=== PATIENT | female | born 2000 | race Caucasian/White ===

== ENCOUNTER 2025-07-06 10:29 | Emergency (ER) | payer OTHER, SELFPAY ==
--- OUTSIDE RECORDS SUMMARY | 2025-06-22 18:54 | XMS_ITS | Encounter Summary ---
Author Organization [facility] Address [facility] [place] [address] Care Team Providers Care Quality Assurance Supervisor Trim Name Role Phone Germaingeetha Aure Scott DO Unavailable [phone] William Lama MD Unavailable [phone] William Lama MD Unavailable [phone] Karen Sotomayor (Pt) PT Unavailable Unavailabl e Source Comments In the event this information is protected by the Federal Confidentiality of Alcohol and Drug AbusePatient Records regulations: The Federal rules restrict any use of the information to criminally investigate or prosecute any alcohol or drug abuse patient.[facility] Reason for Visit * ReasonCommentsChest Pain Encounter Details DateTypeDepartmentCare Team (Latest Contact Info)Kjqsriwblqy91/29/2025 7:54 PM EDT - 06/23/2025 4:31 AM EDTEN[facility] Department [address] [place] [address] Juliocesar Antunez DO [facility] [place] [address] Chest Pain Discharge Disposition: Home Social History Tobacco UseTypesPacks/DayYears UsedDateSmoking Tobacco: NeverSmokeless Tobacco: NeverAlcohol UseStandard Drinks/WeekCommentsNo0 (1 standard drink = 0.6 oz pure alcohol)PHQ-2AnswerDate RecordedPHQ-2 gypkk658UDIT-CAnswerDate Recorded Q1: How often do you have a drink containing alcohol?Never06/13/2025Q2: How many drinks containing alcohol do you have on a typical day when you are drinking? Patient does not drink06/13/2025Q3: How often do you have six or more drinks on one occasion?Never06/13/2025Hunger Vital SignAnswerDate RecordedWithin the past 12 months, you worried that your food would run out before you got the money to buymore.Never true06/08/2025Within the past 12 months, the food you bought just didn't last and you didn't have money to get more.Never true06/08/2025PRAPARE - TransportationAnswerDate RecordedIn the past 12 months, has lack of transportation kept you from medical appointments or from getting medications?No 06/08/2025In the past 12 months, has lack of transportation kept you from meetings, work, or from getting things needed for daily living?No06/08/2025 Housing Stability Vital SignAnswerDate RecordedIn the last 12 months, was there a time when you were not able to pay the mortgage or rent on time?No06/08/2025 Number of Times Moved in the Last YearNot on file06/08/2025t any time in the past 12 months, were you homeless or living in a fpc (including now)?No 06/08/2025HC UtilitiesAnswerDate RecordedIn the past 12 months has the electric, gas, oil, or water company threatened to shut off services in your home?No06/08/2025rea Deprivation IndexAnswerDate RecordedNational Score (1- 100), lower number is lower kdat836906/18/2024State Score (1-10), lower number is lower qjzg761ata from: https://www.neighborhoodatlas.medicine.[facility].edu/. Last address used for [address] [facility] [id number] and Gender InformationValueDate RecordedSex Assigned at BirthNot on fileLegal SexFemale 07/26/2012 9:51 AM ESTGender VjqrthjzEoswzn63/19/2021 9:24 PM EDTSexual MzsrnkljuafBjaizrau33/15/2024 10:47 AM ESTdocumented as of this encounter Last Filed Vital Signs Vital SignReadingTime TakenCommentsBlood Jqclljxr679/6106/23/2025 3:30 AM EDT Obubw108106/23/2025 3:30 AM NGWDgcztbmlikx02.9 ??C (98.4 ??F)06/22/2025 7:38 PM EDTRespiratory Ppko0722 3:06 AM EDTOxygen Xsimwstdgf35%06/23/2025 3:30 AM EDTInhaled Oxygen Concentration--Weight--Height--Body Mass Index--documented in this encounter Functional Status * Are you deaf or do you have serious difficulty hearing?AnswerDate of XfjkmdvqymPvuuftTc05/17/2025 1:59 PM Paramjit Lai RN * Are you blind or do you have serious difficulty seeing, even when wearing glasses?AnswerDate of SxcaszxadcMdchpkPj46/17/2025 1:59 PM Paramjit Lai RN * Do you have serious difficulty walking or climbing stairs?AnswerDate of NtmahtuysdOmxjgiMh25/17/2025 1:59 PM Paramjit Lai RN * Do you have difficulty dressing or bathing?AnswerDate of AssessmentAuthorNo 06/10/2025 1:59 PM Paramjit Lai RN * Because of a physical, mental, or emotional condition, do you have difficulty doing errands alone such as visiting a doctor's office or shopping?AnswerDate of QheczxfhhzGyrrygUc15/17/2025 1:59 PM Paramjit Lai RN documented as of this encounter Mental Status * Because of a physical, mental, or emotional condition, do you have serious difficulty concentrating, remembering, or making decisions?AnswerEntry Date JbcreyWg46/13/2025 1:33 PM Marylou Hart RN documented in this encounter Discharge Instructions * Attachments The following attachments cannot be sent through Care Everywhere. * Chest Pain of Unclear Etiology ([place]) documented in this encounter Medications at Time of Discharge MedicationSigDispense QuantityRefillsLast FilledStart DateEnd Date tiZANidine HCl (ZANAFLEX) 4 mg capsule Take 4 mg by mouth two times a day. polyethylene glycol 3350 17 gram packet Take 1 packet by mouth once daily as needed for constipation. Dissolve dose in 4 - 8 ounces of liquid and take as directed. 10 each 06/10/2025 ondansetron (ZOFRAN) 4 mg tablet Take 1 tablet by mouth every 6 hours as needed for nausea/vomiting. 6 tablet 06/10/2025 trimethoprim (PROLOPRIM) 100 mg tablet Indications:Recurrent urinary tract infectionTake 1 tablet by mouth once daily. 90 tablet 06/10/2025 tacrolimus (PROTOPIC) 0.1 % ointment Indications:Rash and nonspecific skin eruptionApply to affected area two times a day. 60 g losartan (COZAAR) 25 mg tablet Indications:Type 2 diabetes mellitus with hyperglycemia, without long-term current use of insulin ([facility]),MicroalbuminuriaTake 1 tablet by mouth once daily. 90 tablet glimepiride (AMARYL) 2 mg tablet Indications:Type 2 diabetes mellitus with hyperglycemia, without long-term current use of insulin (HCC)Take 1 tablet by mouth daily with breakfast. 90 tablet atorvastatin (LIPITOR) 20 mg tablet Indications:Type 2 diabetes mellitus with hyperglycemia, without long-term current use of insulin (HCC)Take 1 tablet by mouth daily at bedtime. 90 tablet hydrOXYzine HCl (ATARAX) 25 mg tablet Take 1 tablet by mouth every 12 hours as needed for itching/rash. 14 tablet 2025 lactobacillus rhamnosus (CULTURELLE) 10 billion cell capsule Take 1 capsule by mouth once daily.05/07/2025 blood sugar diagnostic (ACCU-CHEK GUIDE TEST STRIPS) test strip Indications:Type 2 diabetes mellitus with hyperglycemia, without long-term current use of insulin (HCC)Use with blood glucose test twice a day, different times E11.65 200 each Blood-Glucose Meter (ACCU-CHEK GUIDE ME GLUCOSE MTR) Indications:Type 2 diabetes mellitus with hyperglycemia, without long-term current use of insulin (HCC)Use as directed E11.65 1 each 04/27/2025 Lancets Indications:Type 2 diabetes mellitus with hyperglycemia, without long-term current use of insulin (HCC)Use with blood glucose test twice a day E11.65 100 each Surgical Lubricant Jelly gel For MRI Female Pelvis, MRI department to provide. Administer intra-vaginal Surgilube immediately prior the MRI procedure (total amount to patient toleranace). 5 g gabapentin (NEURONTIN) 800 mg tablet Take 800 mg by mouth three times a day as needed. levonorgestrel (LILETTA) 20.4 mcg/24 hr (8 yrs) 52 mg IUD 1 Intra Uterine Device by INTRAUTERINE route. lamoTRIgine (LAMICTAL) 25 mg tablet Take 75 mg by mouth once daily. EPINEPHrine (EPIPEN) 0.3 mg/0.3 mL auto-injector Inject 0.3 mg subcutaneously.12/21/2024 albuterol HFA (PROVENTIL HFA, VENTOLIN HFA) 90 mcg/actuation inhaler Inhale 2 puffs as instructed.12/23/2024 acetaminophen (TYLENOL) 500 mg tablet Take 1,000 mg by mouth.01/31/2022 hydrOXYchloroQUINE (PLAQUENIL) 200 mg tablet Take 2 tablets by mouth once daily. 180 tablet busPIRone (BUSPAR) 15 mg tablet Take 15 mg by mouth two times a day.11/12/2024 DULoxetine (CYMBALTA) 60 mg capsule Take 60 mg by mouth once daily. 11/23/2020 oxyCODONE-acetaminophen (PERCOCET) 5-325 mg tablet Indications:Fall, initial encounter,Acute bilateral low back pain without sciaticaTake 1 tablet by mouth every 8 hours as needed for pain for up to 3 days. 9 tablet ibuprofen (MOTRIN) 600 mg tablet Take 1 tablet by mouth every 6 hours as needed for pain for up to 7 days. 28 tablet lidocaine (SALONPAS) 4 % patch Apply 1 patch as directed once daily for 5 days. Remove patch after 12 hours 5 patch Blood-Glucose Sensor (FREESTYLE NIESHA 3 PLUS SENSOR) nickolas Indications:Type 2 diabetes mellitus with hyperglycemia, without long-term current use of insulin (HCC)Apply new sensor every fifteen (15) days to upper arm. E11.65 6 each tirzepatide (MOUNJARO) 5 mg/0.5 mL pen injector Indications:Type 2 diabetes mellitus with hyperglycemia, without long-term current use of insulin (HCC)Inject 5 mg subcutaneously one time a week. (This is AFTER the 4 weeks of 2.5 mg weekly) 2 mL documented as of this encounter ED Notes * Flores Serrano RN - 06/23/2025 4:31 AM EDT Reviewed all discharge instructions with patient including medications and the need for follow up. Pt verbalized understanding. * Juliocesar Antunez DO - 06/22/2025 9:35 PM EDT ED Provider Note Patient Name: Rebekah Thompson : 2000 SERVICE DATE: 06/22/25 History Patient presents with: Chest Pain 25-year-old female with a history of lupus, hypertension, diabetes, high cholesterol, chronic pain,chronic back pain and neurogenic bladder, bipolar disorder, ADHD, and PCOS presents to the emergency department for evaluation of chest pain. Patient reports that she had a mechanical fall downstairsyesterday. She was seen at [facility] and discharged home after negative imaging. Today she was reclining back into her recliner when she developed sudden onset substernal chest pain that radiates to the left side of her chest and into her back. Denies any subsequent injuries. PAST MEDICAL HISTORY Diagnosis Date Coitus painful for female Endometriosis Ovarian cyst Postcoital bleeding Systemic lupus erythematosus (HCC) PAST SURGICAL HISTORY Procedure Laterality Date ADDED SPINAL DISK SURGERY N/A x 4; 1 fusion and 3 discectomies FAMILY HISTORY Problem Relation Age of Onset No Ocular Disease Father Hypertension Mother No Ocular Disease Mother other (Liver cirrhosis) Mother other (Rheumatoid arthritis) Mother No Ocular Disease Sister No Ocular Disease Brother Hypertension Maternal Grandmother Cancer Maternal Grandmother non-Hodgkins lymphoma No Ocular Disease Maternal Grandmother Heart Maternal Grandfather Hypertension Maternal Grandfather Diabetes Maternal Grandfather Cancer Maternal Grandfather throat/esophageal cancer Cataract Maternal Grandfather Heart Paternal Grandmother Hypertension Paternal Grandmother Cancer Paternal Grandmother liver cancer No Ocular Disease Paternal Grandmother Heart Paternal Grandfather Hypertension Paternal Grandfather Diabetes Paternal Grandfather No Ocular Disease Paternal Grandfather Social History[1] ALLERGIES Allergen Reactions Fexofenadine Hives Fexofenadine Hcl Hives [place] Hives Morphine Hives, Itching Orphenadrine Anaphylaxis, Cough, Shortness of Breath, Swelling Added to allergy list after having a reaction when given on 12/20/24 Dexamethasone Rash Develops a rash and chest gets real tight Ciprofloxacin Anaphylaxis Hives In arm while infusion running, facial redness, throat sweling Semaglutide GI Upset Sulfasalazine Other: See Comments Weight loss, elevations of inflammatory markers Review of Systems Cardiovascular: Positive for chest pain. Allergic/Immunologic: Negative for immunocompromised state. All other systems reviewed and are negative. Physical Exam Vitals BP Pulse Temp Temp src Resp SpO2 Weight Height 06/22/25193706/22/25193706/22/25193706/22/25193706/22/25193706/22/251937 -- -- 137/76 (!) 93 36.8 ??C (98.3 ??F) Oral 18 96 % Physical Exam Vitals and nursing note reviewed. Constitutional: General: She is not in acute distress. Cardiovascular: Rate and Rhythm: Normal rate and regular rhythm. Heart sounds: Normal heart sounds. Pulmonary: Effort: Pulmonary effort is normal. Breath sounds: Normal breath sounds. Chest: Chest wall: Tenderness present. Neurological: Mental Status: She is alert. Psychiatric: Behavior: Behavior normal. Diagnostic Testing ED Labs Ordered and Reviewed COMPREHENSIVE METABOLIC PANEL - Abnormal; Notable for the following components: Result Value Ref Range Glucose 131 (*) 74 - 99 mg/dL CO2 20 (*) 22 - 30 mmol/L All other components within normal limits HIGH SENSITIVITY TROPONIN T (SECOND) - Abnormal; Notable for the following components: DORINA High Sensitivity 18 (*) <12 ng/L All other components within normal limits MAGNESIUM - Abnormal; Notable for the following components: Magnesium 1.6 (*) 1.7 - 2.3 mg/dL All other components within normal limits COMPLETE BLOOD COUNT - Normal HIGH SENSITIVITY TROPONIN T (INITIAL) - Normal HCG QUALITATIVE - Normal HIGH SENSITIVITY TROPONIN T (THIRD) 3 HRS AFTER INITIAL - Normal Results for orders placed or performed during the hospital encounter of 06/22/25 EKG Impression Sinus rhythm Borderline Q waves in inferior leads ST elev, probable normal early repol pattern unchanged from prior EKG April 07, 2025 Borderline ECG Confirmed by MD TRIMBLE BRYAN ([id number]) on 06/22/2025 7:57:56 PM Procedures ED Course / Clinical Impression Clinical Impressions as of 06/23/252139 Chest pain, unspecified type Acute bilateral thoracic back pain Fall down stairs, subsequent encounter Chronic pain syndrome Thyroid nodule MDM / Disposition / Plan 25-year-old female with a history of lupus, hypertension, diabetes, high cholesterol, chronic pain,chronic back pain and neurogenic bladder, bipolar disorder, ADHD, and PCOS presents to the emergency department for evaluation of chest pain. Patient is afebrile with normal vital signs. Uncomfortable due to pain. Has a known fall downstairs yesterday and was seen at [facility] and had negative CT ofthe head as well as negative x-rays of the ankle, hip, and low back however developed chest pain that radiated into the back today. Pain is very reproducible on palpation of the chest and back. Rib films and chest x-ray were ordered through the intake process initially which were negative. Given luis t she is having chest pain and does have risk factors a cardiac evaluation was pursued. Her ECG hasno acute cardiac abnormalities. Her initial troponin is negative. Repeat troponin is slightly elevated although thought to be secondary to hemolysis as there was difficulties obtaining the specimen. Her third troponin was negative again. Patient did require multiple doses of Toradol and fentanyl aswell as Tylenol and a lidocaine a patch for pain control. She was given IV magnesium for mild hypomagnesemia. She has no acute kidney injury. No leukocytosis or anemia. CT of the chest with IV contrast showed no acute pathology. Incidental finding of left thyroid nodule noted. On reevaluation patient was resting in bed but still was complaining of chest pain. Discussed test results and she was informed of her troponins. Discussed admitting per the ACS algorithm versus discharge. Via shared decision making the patient opted to be discharged home which I do feel is reasonable as her pain is very reproducible and she did have a known injury yesterday. Feel her solitary elevated troponin is more related to hemolysis or other factors and less likely associated with ACS. Patient did express understanding that the elevated troponin could potentially correlate with cardiac disease but was still comfortable going home. Referral was placed for follow-up with the actionable findings clinic for thyroid nodule. She has pain medicine at home including narcotic pain medication per review of [facility] and her medical records. Was discharged and instructed to return to the ED for any worsening symptoms or other concerns. History and Record Review External record(s) reviewed: PDMP reviewed. Differential Diagnoses - Chest pain - Thoracic back pain - Fall downstairs - Chronic pain - Thyroid nodule - Rib fracture is less likely for the following reason(s): no evidence on imaging - PE Less likely because: not tachycardic, not hypoxic and H&P not suggestive - ACS Less likely because: EKG without ischemia and history not suggestive of ischemic pain - Pneumothorax Less likely because: bilateral breath sounds and CXR without PTX - Pneumonia Less likely because: lungs clear to auscultation, CXR without infiltrate, no fever, no leukocytosisand H&P not suggestive - Aortic Dissection Less likely because: no history of HTN, no widened mediastinum on CXR and blood pressure appropriate in ED Additional complaint based differentials considered: pulmonary embolism, ACS, pneumonia, aortic dissection, pneumothorax Management I performed an independent interpretation of the following:imaging Imaging: My interpretation is No pneumothorax Radiology Reports CT CHEST W IVCON Final Result IMPRESSION: 1. No CT evidence of acute abnormality. 2. 1.1 cm left thyroid nodule. A follow-up thyroid ultrasound could be performed to further evaluate at clinical discretion. 3. Details above. Construction Director: JACINDA Transcribe Date/Time: Jun 23 2025 1:08A Dictated by : BERNICE MARTINEZ MD This examination was interpreted and the report reviewed and electronically signed by: BERNICE MARTINEZ MD on Jun 23 2025 1:17AM EST CT THORACIC SPINE W RECON DATA Final Result IMPRESSION: No acute fracture or malalignment of the thoracic spine. Please see dedicated CT chest for further evaluation of any associated relevant intrathoracic soft tissue findings. Construction Director: JACINDA Transcribe Date/Time: Jun 23 2025 1:05A Dictated by : BÁRBARA NORTON MD This examination was interpreted and the report reviewed and electronically signed by: BÁRBARA NORTON MD on Jun 23 2025 1:19AM EST XR RIBS/CHEST 3V AP RIB/OBLS/CXR LEFT Final Result IMPRESSION: No acute abnormality Construction Director: JACINDA Transcribe Date/Time: Jun 22 2025 8:59P Dictated by : BAUTISTA CHIN MD This examination was interpreted and the report reviewed and electronically signed by: BAUTISTA CHIN MD on Jun 22 2025 9:00PM EST Meds Given During Visit ED Medication Administration from 06/22/2025 1933 to 06/23/2025 0431 Date/Time Order Dose Route Action 06/22/20252218 EDT NaCl 0.9% 1,000 mL iv bolus 1,000 mL INTRAVENOUS New Bag/Syringe/Bottle 06/23/202541 EDT NaCl 0.9% 1,000 mL iv bolus 0 mL INTRAVENOUS Infusion Complete 06/22/20252218 EDT keTORolac 15 mg injection (Toradol) 15 mg INTRAVENOUS Given 06/22/20252219 EDT oxyCODONE-acetaminophen 5-325 mg 1 tablet (PERCOCET) 1 tablet ORAL Given 06/22/20252218 EDT lidocaine 4 % 1 patch (SALONPAS) 1 patch TRANSDERMAL Given 06/22/20252339 EDT fentaNYL 50 mcg/mL 50 mcg injection (SUBLIMAZE) 50 mcg INTRAVENOUS Given 06/22/20252339 EDT acetaminophen 650 mg tab(s) (TYLENOL) 650 mg ORAL Given 06/23/202541 EDT magnesium sulfate iv piggyback in sterile water 2 g 50 mL 2 g INTRAVENOUS New Bag/Syringe/Bottle 06/23/2025 0235 EDT magnesium sulfate iv piggyback in sterile water 2 g 50 mL 0 g INTRAVENOUS Infusion Complete 06/23/202541 EDT potassium chloride ER 20 mEq tab(s) (KLOR-CON) 20 mEq ORAL Given 06/23/2025126 EDT fentaNYL 50 mcg/mL 50 mcg injection (SUBLIMAZE) 50 mcg INTRAVENOUS Given 06/23/20256 EDT keTORolac 15 mg injection (Toradol) 15 mg INTRAVENOUS Given 06/23/2025126 EDT NaCl 0.9% 1,000 mL iv bolus 1,000 mL INTRAVENOUS New Bag/Syringe/Bottle 06/23/2025 0303 EDT NaCl 0.9% 1,000 mL iv bolus 0 mL INTRAVENOUS Infusion Complete 06/23/2025 0427 EDT fentaNYL 50 mcg/mL 50 mcg injection (SUBLIMAZE) 50 mcg INTRAVENOUS Given Additional Tests or Interventions Additional tests/procedures: IV fluids IV fluids were given for the following reasons replacement. Test(s) / intervention(s) considered but not performed: heparin and nitroglycerin Nitroglycerin considered but not performed for the following reason(s): presentation not consistentwith ACS Heparin considered but not performed for the following reason(s): presentation not consistent with ACS Contributing Factors Chronic conditions affecting care: diabetes and hypertension Re-evaluation Refer to [facility] Disposition The patient was discharged. Yes Escalation of care including transfer to ED considered. Reason(s) for deciding against admission/observation: ACS thought to be less likely, no pneumothorax, no evidence of aortic dissection, via shared decision making the patient preferred to be discharged home Counseled patient regarding lab results, radiology results and suspected diagnosis. Prescriptions and Discharge Orders Discharge Orders Hospital Follow Up Appointment - ACTIONABLE RESULTS Comments: thyroid nodule SIGNATURE: Sotero Kern PA-C Attending Note Attestation for: ELIAS/KAREN I have personally performed a face to face assessment of the patient and have reviewed the RUFINA note. I personally made/approved the management plan and take responsibility for the patient management.I performed a substantive portion of the visit including all aspects of the following. My hernandez findings include: Patient is a 25-year-old female presenting for chest discomfort. Patient reports that she fell the other day. States that her right leg gave out and she fell down several steps. Has a history of somemobility issues. Also has a history of some chronic pain disorder. Was evaluated at [facility]. CT head did not show any signs of any acute bleed. No signs of any fractures of her lower back or of the extremities that were hurting. Patient was started on oxycodone and was discharged home. Patient states that she woke up today feeling okay. States as the day progressed, she started having pain in the center of her chest. States the pain radiates into the left side of her ribs. States it is going into her left side of her back. States every time she moves or takes a deep breath that seems to makeit worse. States that she tried the pain medication and did not seem to make her feel any better. States the pain does seem to make it difficult to breathe. Has been nauseous still. States that her head still feels foggy from the injury but not worse today. States that she is not aware of injuring h er chest yesterday when she fell. Heart regular rate and rhythm. Lungs sound clear bilateral. There is no wheezing, rales, or rhonchi. No diminished breath sounds. Speaking full sentences without any difficulty. +2/4 radial pulses bilateral. Reproducible left-sided chest wall pain with palpation. No appreciated deformity. No crepitus on examination. Reproducible left-sided thoracic back pain with palpation. There is some minimal midline tenderness. No ecchymosis noted on examination. No signs of any deformities of the thoracic spine. Previous surgical work noted of her spine. Anxious on presentation. Symptoms seem to be consistent with a musculoskeletal injury. Likely strained her chest from the fall yesterday. Likely not feeling some of the discomfort secondary to the other injuries and now feeling it today. Chest x-ray showed no signs of any obvious rib fractures. CT of the chest showed no signs of any pneumothorax, pulmonary contusions, or rib fractures this evening. Continue to intermittently ask for narcotic pain medications but her pain seems to be well- controlled. Intermittently onrepeatexam talking with her partner in the room and no signs of any distress. Laughing, no signs of any distress. Pain seems to be under control this evening. At this time not meeting any criteria for admission for any trauma evaluation as there is no signs of any new fractures or other injuries this evening requiring admission. Incidentally did have some issues with her troponins this evening. First troponin was normal. Repeat troponin did elevate. Third troponin returned back to normal. Her delta troponin was less than 6 and technically have ruled her out. I suspect the bump in the troponin was from hemolysis. Was havinga difficult time getting some of her blood work this evening and some of her troponins did hemolyze. I suspect the 1 troponin that was elevated likely was from a hemolyzed sample. Still discussed theresults with the patient's. Offered her admission even though she was ruled out based off her deltatroponins. Made her aware that likely some of the change was from hemolysis but cannot be officially ruled out. Patient has declined and states that she wants to try to follow-up with her doctors outpatient. Again this seems reasonable as most likely her discomfort this evening is more likely musculoskeletal from her fall and injuries. Also again there is a reason for her troponins to be the way they were this evening. Patient strongly encouraged to follow-up with her doctor and be reevaluated.Patient informed if any of her symptoms change or worsen that she is always welcome to return. External record(s) reviewed: PDMP reviewed and prior outpatient record. Findings from review of outpatient records: 06/21/2025 [facility] I performed an independent interpretation of the following:telemetry and imaging Telemetry: My interpretation is Sinus rhythm on monitor Imaging: My interpretation is Preliminary read of her CT showed no signs of any pneumothorax Admission considered: Yes Escalation of care including admission/observation considered. Reason(s) for deciding against admission/observation: Considered admission for her troponins. Likely second troponin was elevated from hemolysis but still offered admission even though she was ruled out. Patient has declined and would like to follow-up with her providers outpatient. Re-Evaluation On reevaluation continued to state that she has chest discomfort and requesting for pain medications. Pain on exam seems to be under control. No signs of any acute distress. Signature: Juliocesar Antunez DO Date: 06/23/2025 Time: 9:40 PM SOTERO KERN 06/23/25 0629 [1] Social History Tobacco Use Smoking status: Never Smokeless tobacco: Never Vaping Use Vaping status: Never Used Substance and Sexual Activity Alcohol use: No Drug use: No Sexual activity: Not on file Comment: not asked JULIOCESAR ANTUNEZ 06/23/25 598 * Jim Carmichael MD - 06/22/2025 7:46 PM EDT ED INTAKE NOTE Patient Name: Rebekah Thompson Service Date: 06/22/25 BRIEF HPI: This is a 25 year old female who presents to the ED with: Slipped and fell on 7 steps yesterday. Seen at [facility] and had negative plain films (lumbar, right ankle, right hip) and CT brain, disposition home. Returns today with left rib and anterior chest pain, reproducible and tender to palpation. Did not have rib films/CXR yesterday. BRIEF EXAM: NAD INITIAL WORKUP AND DECISION MAKING: Orders Placed This Encounter XR RIBS/CHEST 3V AP RIB/OBLS/CXR LEFT ECG Complete Provider examination performed via virtual platform with assistance from bedside clinician. SIGNATURE: Jim Carmichael MD Further triage/room assignment per nursing Limited role in this case performing a screening of the patient in triage Further work up, treatment, follow up on testing ordered from triage, further testing, care, disposition, and final MDM per downstream emergency provider team Please see downstream ED providers's notation for full HnP and MDM * Zia Gomes RN - 06/22/2025 7:40 PM EDT Pt arrived to ED for c/o chest pain w/ Shortness of Breath x 1 day. Pt fell down stairs yesterday and was seen at [facility]. Pt endorses nausea, no vomiting. States that pain is mid sternal and radiates both right and left. documented in this encounter Miscellaneous Notes * [facility] - Scarlett López Tech - 06/22/2025 11:11 PM EDT Radiology Service Progress Note DATE OF SERVICE: June 22, 2025 TIME: 11:23 PM PATIENT IDENTITY VERIFICATION COMPLETED USING TWO (2) STANDARD IDENTIFIERS: Name and Date of confirmed by patient verbally and Name and Date of confirmed by identification band. FALL SCREENING: Has the patient had 2 falls in the last year or 1 fall with injury or currently using an Ambulatory Assistive Device (Walker, Cane, Wheelchair, Crutches, etc.)? Emergency Room Patient: Screened in ED PATIENT GENDER DATA: Assigned female at . status: : No status:NO. PATIENT RELEVANT IMPLANT DATA REVIEWED: Not Applicable PATIENT PRESENTS WITH AN IMPLANTABLE OR ATTACHED FARMER VEGETABLE: No ALLERGIES: Reviewed and unchanged CONTRAST ALLERGY: NO. EXAM: CT -CONTRAST INDUCED NEPHROPATHY RISK FACTORS: Not applicable CREATININE: Creatinine Date Value Ref Range Status 06/22/2025 0.67 0.58 - 0.96 mg/dL Final 06/09/2025 0.61 0.58 - 0.96 mg/dL Final 06/08/2025 0.69 0.58 - 0.96 mg/dL Final Estimated Glomerular Filtration Rate Date Value Ref Range Status 06/22/2025 124 >=60 mL/min/1.73m Final Comment: Estimated Glomerular Filtration Rate (eGFR) is calculated using the 2020 CKD-EPI creatinine equation. This equation utilizes serum creatinine, sex, and age as parameters. The creatinine assay has traceable calibration to isotope dilution- mass spectrometry. Refer to KDIGO guidelines for clinical interpretation. In patients with unstable renal function, e.g. those with acute kidney injury, the eGFRmay not accurately reflect actual GFR. eGFR- Date Value Ref Range Status 08/10/2021 >60 Final P.O.C.T. RESULTS: POC done: Yes, See Lab Tab June 22, 2025 TREATMENT: N/A PERIPHERAL IV DATA: Inpatient - refer to LDA documentation RADIOLOGY DEPARTMENT: CT; Exam(s) Completed: Chest and Spine . Anesthesia: No SIGNATURE: Alexa Hinton PATIENT NAME: Rebekah Thompson DATE: June 22, 2025 TIME: 11:23 PM * [facility] - Mike Ragsdale RT(R) - 06/22/2025 8:10 PM EDT Radiology Service Progress Note PATIENT NAME: Rebekah Thompson DATE OF SERVICE: June 22, 2025 TIME: 8:10 PM PATIENT IDENTITY VERIFICATION COMPLETED USING TWO (2) IDENTIFIERS: Name and Date of confirmedby patient verbally and Name and Date of confirmed by identification band. FALL SCREENING: Has the patient had 2 falls in the last year or 1 fall with injury or currently using an Ambulatory Assistive Device (Walker, Cane, Wheelchair, Crutches, etc.)? Emergency Room Patient: Screened in ED PATIENT GENDER DATA: Assigned female at . status: Unknown status: N/A PATIENT RELEVANT IMPLANT DATA REVIEWED: Not Applicable PATIENT PRESENTS WITH AN IMPLANTABLE OR ATTACHED FARMER VEGETABLE: No RADIOLOGY DEPARTMENT: General X-ray: Exam(s) Completed: Rib X-Ray: Left PERIPHERAL IV DATA: Not applicable SIGNED BY: RT Shefali(R) June 22, 2025 8:10 PM documented in this encounter Plan of Treatment DateTypeDepartmentCare Team (Latest Contact Info)Lnlpnldgsyo15/19/2025 11:00 AM ESTOffice Visit Rheumatology [address] [address] Mirta Lanza DO [address], [phone] [place] [address] 6m f/u sle07/18/2025 11:00 AM ESTInfusion Center Rheumatology [address] [address] Benlysta [M32.9] [employer] Medicare auth approved thru 08/24/25, Dr. Lanza, Q28D109/27/2024 1:00 PM [facility] Endocrinology [address] [place] [address] [facility]ep [facility] [address] [place] [address] 08/10/2025 9:15 AM ESTOffice Visit Family Medicine [facility] [address] [place] [address] [place] [address] [place] [address] EST care ER follow up jieflmcmvd93/22/2025 11:00 AM ESTInfusion Center Rheumatology [address] [address] [place] [M32.9] [employer] Medicare auth approved thru 08/24/25, Dr. Lanza, Q28D09/30/2025 10:00 AM ESTOffice Visit Endocrinology [address] [place] [address] Steve Cerna, BURRER OPERATOR.BUSHEL GIRL [address] [place] [address] 4 month follow up10/07/2025 7:45 AM ESTOffice Visit Urology [address] [place] [address] Mirta Harris MD [address] [place] [address] ER discharge due to UTI and Kidney Stone.06/15/2026 1:00 PM EDTOffice Visit OPHT Ophthalmology [address] [place] [address] Omero Brady, OD [address] [place] [address] Annual Plaquenil Eye Examdocumented as of this encounter Procedures Procedure NamePriorityDate/TimeAssociated DiagnosisCommentsHIGH SENSITIVITY TROPONIN T (THIRD) 3 HRS AFTER KRNPNJQFCGP04/30/2025 3:07 AM EDT HIGH SENSITIVITY TROPONIN T (SECOND)06/23/2025 12:48 AM EDT MAGNESIUM JNKALQN2606/22/2025 11:[address] THORACIC SPINE W RECON QBYEDRJK34/29/2025 11:[address] CHEST W CVMDRGZNM67/29/2025 11:29 PM EDT HCG QUAL YOMWRJB8306/22/2025 10:19 PM EDT HIGH SENSITIVITY TROPONIN T (INITIAL)06/22/2025 10:05 PM EDT COMPREHENSIVE METABOLIC KJLNJWYFZ50/29/2025 10:05 PM EDT COMPLETE BLOOD UBSPMBWAC35/29/2025 10:05 PM EDT XR RIBS/CHEST 3V AP RIB/OBLS/CXR RKIYXBMG53/29/2025 8:09 PM EDT FETWercutm84/29/2025 7:53 PM EDT ECG MHIHIITTAUDV47/29/2025 7:46 PM EDTdocumented in this encounter Results * HIGH SENSITIVITY TROPONIN T (THIRD) 3 HRS AFTER INITIAL (06/23/2025 3:07 AM EDT)ComponentValueRef RangeTest MethodAnalysis TimePerformed AtPathologist SignatureTNT High Sensitivity7<12 ng/L1 3:29 AM EDTLUTHERAN LABORATORYSpecimen (Source)Anatomical Location / LateralityCollection Method / VolumeCollection TimeReceived TimeBloodBLOOD SPECIMEN / UnknownVenipuncture / Mfqjrmo4806/23/2025 3:07 AM EDT1 3:09 AM EDT Narrative Authorizing ProviderResult TypeResult StatusSotero JONES-CLABORATORYFinal ResultPerforming OrganizationAddressty/State/ZIP CodePhone Number [email or web address] [address] [place] [address], * (ABNORMAL) HIGH SENSITIVITY TROPONIN T (SECOND) (06/23/2025 12:48 AM EDT) ComponentValueRef RangeTest MethodAnalysis TimePerformed AtPathologist SignatureTNT High Lnducxxykdl03(H)<12 ng/L1 1:12 AM EDTLUTHERAN LABORATORYSpecimen (Source)Anatomical Location / LateralityCollection Method / VolumeCollection TimeReceived TimeBloodBLOOD SPECIMEN / UnknownVenipuncture / Wiaovob0806/23/2025 12:48 AM EDT1 12:53 AM EDT Narrative Authorizing ProviderResult TypeResult StatusAnddrake Kern PA-CLABORATORYFinal ResultPerforming OrganizationAddressty/State/ZIP CodePhone [place] [address], * (ABNORMAL) MAGNESIUM (06/22/2025 11:36 PM EDT)ComponentValueRef RangeTest MethodAnalysis TimePerformed AtPathologist SignatureMagnesium1.6(L)1.7 - 2.3 mg/dL06/23/2025 12:10 AM EDTLUTHERAN LABORATORYSpecimen (Source)Anatomical Location / LateralityCollection Method / VolumeCollection TimeReceived Time BloodBLOOD SPECIMEN / UnknownVenipuncture / Whjbohd4606/22/2025 11:36 PM EDT 06/22/2025 11:38 PM EDT Narrative Authorizing ProviderResult TypeResult StatusNicwexner medical centerkinjal Antunez DOLABORATORYFinal ResultPerforming OrganizationAddressCity/State/ZIP CodePhone Number [facility] [address] [place] [address] * CT THORACIC SPINE W RECON DATA (06/22/2025 11:29 PM EDT)Anatomical Region LateralityModalityT-spineComputed TomographySpecimen (Source)Anatomical Location / LateralityCollection Method / VolumeCollection TimeReceived Time 06/22/2025 11:29 PM EDT Impressions 06/23/2025 1:21 AM EDT IMPRESSION: No acute fracture or malalignment of the thoracic spine. Please see dedicated CT chest for further evaluation of any associated relevant intrathoracic soft tissue findings. Construction Director: JACINDA ?? Transcribe Date/Time: Jun 23 2025 ??1:05A Dictated by : BÁRBARA NORTON MD This examination was interpreted and the report reviewed and electronically signed by: BÁRBARA NORTON MD on Jun 23 2025 ??1:19AM ??EST Narrative 06/23/2025 1:21 AM EDT * * *Final Report* * * DATE OF EXAM: Jun 22 2025 11:29PM ?? [facility] ?? 0485 ??- ??CT T-SPINE W RECON DATA -NB ??/ PROCEDURE REASON: Spine fracture, thoracic, traumatic ? * * * * Physician Interpretation * * * * EXAMINATION: ??CT T-SPINE W RECON DATA -NB CLINICAL HISTORY: ??Spine fracture, thoracic, traumatic - - Spine fracture, thoracic, traumatic - TECHNIQUE: CT thoracic spine without contrast. MQ: ??CTBCSWO_3 Dose-Length Product (DLP): 515 mGy*cm CT Dose Reduction Employed: Automated exposure control(AEC) and iterative recon COMPARISON: ??CT chest same time, MRI thoracic spine 06/04/2025 RESULT: Unchanged alignment to comparison with no new listhesis. ??Unchanged appearance of posterior spinal fusion at T7-8 with no new findings to suggest hardware fracture or new significant lucency surrounding screws to suggest hardware loosening. Unchanged appearance of the thoracic spine vertebral bodies with no findings to suggest acute fracture. Unchanged appearance of any age-related degenerative changes within limitations of no provided soft tissue reformats Procedure Note Provider, [facility] - 06/23/2025 * * *Final Report* * * DATE OF EXAM: Jun 22 2025 11:29PM [facility] 0485 - CT T-SPINE W RECON DATA -NB / PROCEDURE REASON: Spine fracture, thoracic, traumatic * * * * Physician Interpretation * * * * EXAMINATION: CT T-SPINE W RECON DATA -NB CLINICAL HISTORY: Spine fracture, thoracic, traumatic - - Spine fracture, thoracic, traumatic - TECHNIQUE: CT thoracic spine without contrast. MQ: CTBCSWO_3 Dose-Length Product (DLP): 515 mGy*cm CT Dose Reduction Employed: Automated exposure control(AEC) and iterative recon COMPARISON: CT chest same time, MRI thoracic spine 06/04/2025 RESULT: Unchanged alignment to comparison with no new listhesis. Unchanged appearance of posterior spinal fusion at T7-8 with no new findings to suggest hardware fracture or new significant lucency surrounding screws to suggest hardware loosening. Unchanged appearance of the thoracic spine vertebral bodies with no findings to suggest acute fracture. Unchanged appearance of any age-related degenerative changes within limitations of no provided soft tissue reformats IMPRESSION IMPRESSION: No acute fracture or malalignment of the thoracic spine. Please see dedicated CT chest for further evaluation of any associated relevant intrathoracic soft tissue findings. Construction Director: JACINDA Transcribe Date/Time: Jun 23 2025 1:05A Dictated by : BÁRBARA NORTON MD This examination was interpreted and the report reviewed and electronically signed by: BÁRBARA NORTON MD on Jun 23 2025 1:19AM EST Authorizing ProviderResult TypeResult StatusNicwexner medical centerkinjal Antunez DOCT-PAMAFinal Result * CT CHEST W IVCON (06/22/2025 11:29 PM EDT)Anatomical RegionLateralityModality ChestComputed TomographySpecimen (Source)Anatomical Location / Laterality Collection Method / VolumeCollection TimeReceived Time06/22/2025 11:29 PM EDT Impressions 06/23/2025 1:19 AM EDT IMPRESSION: 1. ??No CT evidence of acute abnormality. 2. ??1.1 cm left thyroid nodule. ??A follow-up thyroid ultrasound could be performed to further evaluate at clinical discretion. 3. ??Details above. Construction Director: PSCB ?? Transcribe Date/Time: Jun 23 2025 ??1:08A Dictated by : BERNICE MARTINEZ MD This examination was interpreted and the report reviewed and electronically signed by: BERNICE MARTINEZ MD on Jun 23 2025 ??1:17AM ??EST Narrative 06/23/2025 1:19 AM EDT * * *Final Report* * * DATE OF EXAM: Jun 22 2025 11:29PM ?? [facility] ?? 0539 ??- ??CT CHEST W IVCON ??/ PROCEDURE REASON: Chest trauma, blunt ? * * * * Physician Interpretation * * * * EXAMINATION: ??CHEST CT WITH CONTRAST CLINICAL HISTORY: PATIENT/TECHNOLOGIST PROVIDED HISTORY: ? Pt arrived to ED for c/o chest pain w/ Shortness of Breath x 1 day. Fall yesterday CLINICAL INFORMATION ( PROVIDED BY ORDERING CLINICIAN) : ??Chest trauma, blunt Technique: ??Spiral CT acquisition of the chest from the thoracic inlet to the upper abdomen following IV contrast. ??Coronal and sagittal reconstructed images generated. MQ: ??CTCW_6 Contrast: ??50 mL Omnipaque [address] Radiation dose: Integrated Dose-length product (DLP) for this visit = ?? 515 mGy*cm CT Dose Reduction Employed: Automated exposure control(AEC) and iterative recon Comparison: 05/01/2025. RESULT: Limitations: ??None. Lines, tubes, and devices: ??None. Lung parenchyma and airways: Stable band area of scarring and/or atelectasis medial right upper lobe. ??No focal consolidation. No suspicious pulmonary nodule identified. The central airways are patent. Pleural space: ??No pleural effusion. ??No pneumothorax. Lower neck, lymph nodes, and mediastinum: ??1.1 cm left thyroid nodule. No lymphadenopathy in the axillary, mediastinal, or hilar regions. Heart, pericardium, and thoracic vessels: ??The thoracic aorta and main pulmonary artery are normal in caliber. The cardiac chambers are normal in size. No coronary artery atherosclerotic calcifications are noted, although the study is not optimized for coronary assessment. No pericardial effusion or thickening. Bones: ??No acute fracture identified. ??Stable posterior fusion rods and pedicle screws at T7-T8. Upper abdomen: ??No acute abnormality identified in the imaged upper abdomen. Localizer images: No additional findings. Procedure Note Provider, [facility] - 06/23/2025 * * *Final Report* * * DATE OF EXAM: Jun 22 2025 11:29PM [facility] 0539 - CT CHEST W IVCON / PROCEDURE REASON: Chest trauma, blunt * * * * Physician Interpretation * * * * EXAMINATION: CHEST CT WITH CONTRAST CLINICAL HISTORY: PATIENT/TECHNOLOGIST PROVIDED HISTORY: Pt arrived to ED for c/o chest pain w/ Shortness of Breath x 1 day. Fall yesterday CLINICAL INFORMATION ( PROVIDED BY ORDERING CLINICIAN) : Chest trauma, blunt Technique: Spiral CT acquisition of the chest from the thoracic inlet to the upper abdomen following IV contrast. Coronal and sagittal reconstructed images generated. MQ: CTCW_6 Contrast: 50 mL Omnipaque [address] Radiation dose: Integrated Dose-length product (DLP) for this visit = 515 mGy*cm CT Dose Reduction Employed: Automated exposure control(AEC) and iterative recon Comparison: 05/01/2025. RESULT: Limitations: None. Lines, tubes, and devices: None. Lung parenchyma and airways: Stable band area of scarring and/or atelectasis medial right upper lobe. No focal consolidation. No suspicious pulmonary nodule identified. The central airways are patent. Pleural space: No pleural effusion. No pneumothorax. Lower neck, lymph nodes, and mediastinum: 1.1 cm left thyroid nodule. No lymphadenopathy in the axillary, mediastinal, or hilar regions. Heart, pericardium, and thoracic vessels: The thoracic aorta and main pulmonary artery are normal in caliber. The cardiac chambers are normal in size. No coronary artery atherosclerotic calcifications are noted, although the study is not optimized for coronary assessment. No pericardial effusion or thickening. Bones: No acute fracture identified. Stable posterior fusion rods and pedicle screws at T7-T8. Upper abdomen: No acute abnormality identified in the imaged upper abdomen. Localizer images: No additional findings. IMPRESSION IMPRESSION: 1. No CT evidence of acute abnormality. 2. 1.1 cm left thyroid nodule. A follow-up thyroid ultrasound could be performed to further evaluate at clinical discretion. 3. Details above. Construction Director: PSCB Transcribe Date/Time: Jun 23 2025 1:08A Dictated by : BERNICE MARTINEZ MD This examination was interpreted and the report reviewed and electronically signed by: BERNICE MARTINEZ MD on Jun 23 2025 1:17AM EST Authorizing ProviderResult TypeResult StatusSotero CARDENASCCT-PAMAFinal Result * HCG QUALITATIVE (06/22/2025 10:19 PM EDT)ComponentValueRef RangeTest Method Analysis TimePerformed AtPathologist SignatureHCG, Qualitative BloodNegative Isnvsitk10/29/2025 10:37 PM EDTLUTHERAN LABORATORYSpecimen (Source)Anatomical Location / LateralityCollection Method / VolumeCollection TimeReceived Time BloodBLOOD SPECIMEN / UnknownVenipuncture / Isgtvpj4806/22/2025 10:19 PM EDT 06/22/2025 10:24 PM EDT Narrative Authorizing ProviderResult TypeResult StatusJuliocesar Antunez DOLABORATORYFinal ResultPerforming OrganizationAddressCity/State/Z[place] [address], * HIGH SENSITIVITY TROPONIN T (INITIAL) (06/22/2025 10:05 PM EDT)ComponentValue Ref RangeTest MethodAnalysis TimePerformed AtPathologist SignatureTNT High Sensitivity6<12 ng/L1 10:29 PM EDTLUTHERAN LABORATORYSpecimen (Source)Anatomical Location / LateralityCollection Method / VolumeCollection TimeReceived TimeBloodBLOOD SPECIMEN / UnknownVenipuncture / Kasrkjq1106/22/2025 10:05 PM EDT1 10:07 PM EDT Narrative Authorizing ProviderResult TypeResult StatusSotero CARDENASCLABORATORYFinal ResultPerforming OrganizationAddressCity/State/ZIP CodePhone Number [facility]ARSANISM [facility] [address] [phone], * COMPLETE BLOOD COUNT (06/22/2025 10:05 PM EDT)ComponentValueRef RangeTest MethodAnalysis TimePerformed AtPathologist SignatureWBC9.913.70 - 11.00 k/uL 06/22/2025 10:10 PM EDTLUTHERAN LABORATORYRBC4.793.90 - 5.20 m/uL06/22/2025 10:10 PM EDTLUTHERAN GIKHKMYKPSNusshsgkam80.111.5 - 15.5 g/dL06/22/2025 10:10 PM EDTLUTHERAN KVOGRFBLLCUcduceqnxg59.236.0 - 46.0 %06/22/2025 10:10 PM EDT YARSANISM NJMFJYZNMSOTO94.080.0 - 100.0 fL06/22/2025 10:10 PM EDAD[facility] CENTERERAN AJBPGVPFJSTYY53.426.0 - 34.0 pg06/22/2025 10:10 PM EDTLUTHERAN LABORATORYMCHC 34.230.5 - 36.0 g/dL06/22/2025 10:10 PM EDTLUTHERAN LABORATORYRDW-CV12.511.5 - 15.0 %06/22/2025 10:10 PM EDTLUTHERAN LABORATORYPlatelet Daawg161481 - 400 k/uL06/22/2025 10:10 PM EDTLUTHERAN RIICGGRTUUVLQ42.59.0 - 12.7 fL06/22/2025 10:10 PM EDADENA [facility] CENTERERAN LABORATORYAbsolute nRBC<0.01<0.01 k/uL06/22/2025 10:10 PM EDTLUTHERAN LABORATORYSpecimen (Source)Anatomical Location / Laterality Collection Method / VolumeCollection TimeReceived TimeBloodBLOOD SPECIMEN / UnknownVenipuncture / Jxgffan4206/22/2025 10:05 PM EDT1 10:07 PM EDT Narrative Authorizing ProviderResult TypeResult StatusAnddrake JONES-CLABORATORYFinal ResultPerforming OrganizationAddressCity/State/ZIP CodePhone Number [facility] [address] [place] [address], [place] * (ABNORMAL) COMPREHENSIVE METABOLIC PANEL (06/22/2025 10:05 PM EDT)Component ValueRef RangeTest MethodAnalysis TimePerformed AtPathologist Signature Protein, Total7.36.3 - 8.0 g/dL06/22/2025 10:44 PM EDTLUTHERAN LABORATORY Albumin4.23.9 - 4.9 g/dL06/22/2025 10:44 PM EDTLUTHERAN LABORATORYCalcium, Total9.38.5 - 10.2 mg/dL06/22/2025 10:44 PM EDTLUTHERAN LABORATORYBilirubin, Total0.30.2 - 1.3 mg/dL06/22/2025 10:44 PM EDTLUTHERAN LABORATORYAlkaline Cclunzdtona9959 - 123 U/L1 10:44 PM EDTLUTHERAN LABORATORYAST 06/22/2025 10:44 PM EDTLUTHERAN LABORATORYComment:Unable to assay due to interference from hemolysis. Suggest reorder as clinically indicated.LXP550 - 38 U/L1 10:44 PM EDTLUTHERAN LHDOTXKQAKYbnvfgf943(H)74 - 99 mg/dL 06/22/2025 10:44 PM EDTLUTHERAN LABORATORYComment: The [place] [employer] (ADA) provides guidance for cutoff values for fasting glucose andrandom glucose. The ADA defines fasting as no caloric intake for at least 8 hours. Fasting plasma glucose results between 100 to 125 mg/dL indicate increased risk for diabetes (prediabetes). Fasting plasma glucose results greater than or equal to 126 mg/dL meet the criteria for diagnosis of diabetes. In the absence of unequivocal hyperglycemia, results should be confirmed by repeat testing. In a patient with classic symptoms of hyperglycemia or hyperglycemic crisis, random plasma glucose results greater than or equal to 200 mg/dL meet the criteria for diagnosis of diabetes. Reference: Standards of Medical Care in Diabetes 2016, [place] [employer]. Diabetes Care. 2016.39(Suppl 1). JMT057 - 21 mg/dL06/22/2025 10:44 PM EDTLUTHERAN LABORATORYCreatinine0.670.58 - 0.96 mg/dL06/22/2025 10:44 PM EDTLUTHERAN XCSXFQCWOUNfcdia751864 - 144 mmol/L 06/22/2025 10:44 PM EDTLUTHERAN LABORATORYPotassium3.73.7 - 5.1 mmol/L1 10:44 PM EDTLUTHERAN TVVNBRBSACSfhupzkr93532 - 107 mmol/L1 10:44 PM EDTLUTHERAN ZJPSFGAMVUIH638(L)22 - 30 mmol/L1 10:44 PM EDTLUTHERAN LABORATORYAnion Msc778 - 15 mmol/L1 10:44 PM EDTLUTHERAN LABORATORY Estimated Glomerular Filtration Qyqj035>=60 mL/min/1.73m 06/22/2025 10:44 PM EDTLUTHERAN LABORATORYComment:Estimated Glomerular Filtration Rate (eGFR) is calculated using the 2020 CKD-EPI creatinine equation. This equation utilizes serum creatinine, sex, and age as parameters. The creatinine assay has traceable calibration to isotope dilution-mass spectrometry. Refer to KDIGO guidelines for clinical interpretation. In patients with unstable renal function, e.g. those with acute kidney injury, the eGFRmay not accurately reflect actual GFR.Specimen (Source)Anatomical Location / LateralityCollection Method / VolumeCollection TimeReceived TimeBloodBLOOD SPECIMEN / UnknownVenipuncture / Biuyrsz9106/22/2025 10:05 PM EDT1 10:07 PM EDT Narrative Authorizing ProviderResult TypeResult StatusSotero JONES-CLABORATORYFinal ResultPerforming OrganizationAddressCity/State/ZIP CodePhone Number [facility] [address] [place] [address], * XR RIBS/CHEST 3V AP RIB/OBLS/CXR LEFT (06/22/2025 8:09 PM EDT)Anatomical RegionLateralityModalityRibRadiographic ImagingSpecimen (Source)Anatomical Location / LateralityCollection Method / VolumeCollection TimeReceived Time 06/22/2025 8:09 PM EDT Impressions 06/22/2025 9:02 PM EDT IMPRESSION: No acute abnormality Construction Director: JACINDA ?? Transcribe Date/Time: Jun 22 2025 ??8:59P Dictated by : BAUTISTA CHIN MD This examination was interpreted and the report reviewed and electronically signed by: BAUTISTA CHIN MD on Jun 22 2025 ??9:00PM ??EST Narrative 06/22/2025 9:02 PM EDT * * *Final Report* * * DATE OF EXAM: Jun 22 2025 ??8:09PM ?? LUX ?? [id number] ??- ??XR RIB/CHST 3V AP RIB/OBL/CHST L ??/ PROCEDURE REASON: Trauma ? * * * * Physician Interpretation * * * * PROCEDURE: ??Left RIBS with chest INDICATION: ??Trauma.trauma TECHNIQUE: ??XR RIB/CHST 3V AP RIB/OBL/CHST L COMPARISON: ??04/06/2025 FINDINGS: Stable cardiomediastinal silhouette. No consolidation, pleural effusion or pneumothorax. The left ribs are intact without acute fracture, sclerotic or lytic lesion. Stable hardware in the mid thoracic spine. Procedure Note Provider, [facility] - 06/22/2025 * * *Final Report* * * DATE OF EXAM: Jun 22 2025 8:09PM LUX 5243 - XR RIB/CHST 3V AP RIB/OBL/CHST L / PROCEDURE REASON: Trauma * * * * Physician Interpretation * * * * PROCEDURE: Left RIBS with chest INDICATION: Trauma.trauma TECHNIQUE: XR RIB/CHST 3V AP RIB/OBL/CHST L COMPARISON: 04/06/2025 FINDINGS: Stable cardiomediastinal silhouette. No consolidation, pleural effusion or pneumothorax. The left ribs are intact without acute fracture, sclerotic or lytic lesion. Stable hardware in the mid thoracic spine. IMPRESSION IMPRESSION: No acute abnormality Construction Director: PSCDhruv Transcribe Date/Time: Jun 22 2025 8:59P Dictated by : BAUTISTA CHIN MD This examination was interpreted and the report reviewed and electronically signed by: BAUTISTA CHIN MD on Jun 22 2025 9:00PM EST Authorizing ProviderResult TypeResult StatusMichael Edward Pepera MDRAD-PAMA Final Result * EKG (06/22/2025 7:53 PM EDT)ComponentValueRef RangeTest MethodAnalysis Time Performed AtPathologist SignatureVentricular Iyko66JHSTLRKJILZ CARDIOLOGY Atrial Dysm01GTHSIPKILKQ CARDIOLOGYP-R Jtamzfkz011jxQLXULFTH CARDIOLOGYQRS Yavscadi00knLHNHQLKO CARDIOLOGYQT Ycjwblsu680qqATLCFQBC CARDIOLOGYQTC Calculation (Ajit)410msLUTHERAN CARDIOLOGYCalculated P Axei47nqbevyfGKMBHSRU CARDIOLOGYCalculated R Nijw20iffqroqFUDENODW CARDIOLOGYCalculated T Axis51 degreesLUTHERAN CARDIOLOGYSpecimen (Source)Anatomical Location / Laterality Collection Method / VolumeCollection TimeReceived Time06/22/2025 7:53 PM EDT Impressions [facility] - 06/22/2025 7:58 PM EDT Sinus rhythm Borderline Q waves in inferior leads ST elev, probable normal early repol pattern unchanged from prior EKG April 07, 2025 Borderline ECG Confirmed by MD TRIMBLE BRYAN ([id number]) on 06/22/2025 7:57:56 PM Narrative [facility] - 06/22/2025 7:58 PM EDT NAME : REBEKAH THOMPSON PID : [id number] : 2000 Gender : Female Race : ORD : Procedure Date : Jun 22 2025 19:53:37 Edit Date : Jun 22 2025 19:58:00 Diagnosis: Sinus rhythm Borderline Q waves in inferior leads ST elev, probable normal early repol pattern unchanged from prior EKG April 07, 2025 Borderline ECG Confirmed by MD TRIMBLE BRYAN ([id number]) on 06/22/2025 7:57:56 PM Test Reason : Location : [address] : [facility] ??[id number] Overread By : MD TRIMBLE BRYAN Edited By : MD TRIMBLE BRYAN Referred By : , Acquired by : [id number], Authorizing ProviderResult TypeResult StatusCcf ProviderCARDIOLOGY_MEFinal ResultPerforming OrganizationAddressCity/State/ZIP CodePhone Number [facility] documented in this encounter Visit Diagnoses Diagnosis Chest pain, unspecified type- Primary Acute bilateral thoracic back pain Fall down stairs, subsequent encounter Chronic pain syndrome Thyroid nodule Nontoxic uninodular goiter documented in this encounter Administered Medications Medication OrderMAR ActionAction DateDoseRateSite acetaminophen 650 mg tab(s) (TYLENOL) 650 mg, ORAL, ONCE, 1 dose, On [place] 06/23/25 at 0000 Given06/22/2025 11:40 PM SGM342 mg fentaNYL 50 mcg/mL 50 mcg injection (SUBLIMAZE) 50 mcg, INTRAVENOUS, ONCE, 1 dose, On [place] 06/23/25 at 0000 Given06/22/2025 11:40 PM EDT50 mcg fentaNYL 50 mcg/mL 50 mcg injection (SUBLIMAZE) 50 mcg, INTRAVENOUS, ONCE, 1 dose, On [place] 06/23/25 at 0130 Given06/23/2025 1:27 AM EDT50 mcg fentaNYL 50 mcg/mL 50 mcg injection (SUBLIMAZE) 50 mcg, INTRAVENOUS, ONCE, 1 dose, On [place] 06/23/25 at 0430 Given06/23/2025 4:27 AM EDT50 mcg iv contrast (radiology procedure) INTRAVENOUS, DIRECTED NEEDED, Starting on Fri06/22/25 at 2148, Until Fri06/23/25 at 0631, Radiology Procedure, For CT CHEST W IVCON order No IV access, insert saline lock prior to the sedation, infusion, injection for imaging exam. Discontinue saline lock post exam. If Pt. has a central line or IVAD, may access for administration according to line specific nursing protocol. Once exam is co mplete flush line and de-access according to line specific nursing protocol in the CT contrast administration guidelines link. keTORolac 15 mg injection (Toradol) 15 mg, INTRAVENOUS, ONCE, 1 dose, On Fri06/22/25 at 2200, Ketorolac (Toradol) is indicated for theshort-term (up to 5 days) management of moderately severe acute pain. Continuation of ketorolac (Toradol) beyond 5 days increases the risk of developing serious adverse events. Please verify the duration of therapy for ketorolac (Toradol)., Pharmacist may modify dose per [facility] dose optimization consult agreement: Yes Given06/22/2025 10:19 PM EDT15 mg keTORolac 15 mg injection (Toradol) 15 mg, INTRAVENOUS, ONCE, 1 dose, On [place] 06/23/25 at 0130, Ketorolac (Toradol) is indicated for theshort-term (up to 5 days) management of moderately severe acute pain. Continuation of ketorolac (Toradol) beyond 5 days increases the risk of developing serious adverse events. Please verify the duration of therapy for ketorolac (Toradol)., Pharmacist may modify dose per [facility] dose optimization consult agreement: Yes Given06/23/2025 1:26 AM EDT15 mg lidocaine - VERIFY PATCH ONCE, THIS IS USED ONLY TO DOCUMENT THAT THE PATCH IS VERIFIED ON OR OFF PER ORDER. Use Patch On or Patch Off action. lidocaine 4 % 1 patch (SALONPAS) 1 patch, TRANSDERMAL, ONCE, 1 dose, On Fri06/22/25 at 2200, APPLY TO: CHEST - Remove patch after 12 hours. Given06/22/2025 10:19 PM EDT1 patchBack lidocaine patch - REMOVE ONCE, Remove patch for 12 hours per day. THIS IS USED ONLY TO DOCUMENT PATCH REMOVAL. Use Remvd Patch action. magnesium sulfate iv piggyback in sterile water 2 g 50 mL 2 g, INTRAVENOUS, at 25 mL/hr, Administer over 2 Hours, ONCE, 1 dose, On Fri06/23/25 at 0030, Magnesium sulfate iv bolus will be infused at a rate of 1 gram/hr The following nursing units may administer 2 g dose over 1 hour if necessary: ICUs/PACU/ED, Adult Hematology/Oncology, Labor and Delivery, Cardiac Stepdown, Headache Clinic If necessary, a magnesium sulfate bolus may be administeredgreater than 2 g/hr for the following indications: Adult and Pediatric Asthma Exacerbations, Torsade de Pointes, Pediatric BMT and Hematology/Oncology, Eclampsia or Preeclampsia New Bag/Syringe/Obqtju1606/23/2025 12:42 AM EDT2 g25 mL/hr NaCl 0.9% 1,000 mL iv bolus 1,000 mL, INTRAVENOUS, at 999 mL/hr, Administer over 1 Hours, ONCE, 1 dose, On Fri06/22/25 at 2200 New Bag/Syringe/Fqywvn9006/22/2025 10:19 PM EDT1,000 mL999 mL/hr NaCl 0.9% 1,000 mL iv bolus 1,000 mL, INTRAVENOUS, at 999 mL/hr, Administer over 1 Hours, ONCE, 1 dose, On Fri06/23/25 at 0130 New Bag/Syringe/Wccrkx8406/23/2025 1:27 AM EDT1,000 mL999 mL/hr NaCl 0.9% iv flush bag 20 mL, INTRAVENOUS, NEEDED, Starting on Fri06/23/25 at 0012, Until Fri06/23/25 at 0631, See admin instructions, If no compatible primary is already running, infuse NaCl 0.9% as primary to flush tubing after non-chemotherapy, non-immunotherapy intermittent infusions. Administer at the same rateas intermittent infusion. Select the Flush Bag file on smart pump. oxyCODONE-acetaminophen 5-325 mg 1 tablet (PERCOCET) 1 tablet, ORAL, ONCE, 1 dose, On Fri06/22/25 at 2200 Given06/22/2025 10:20 PM EDT1 tablet potassium chloride ER 20 mEq tab(s) (KLOR-CON) 20 mEq, ORAL, ONCE, 1 dose, On [place] 06/23/25 at 0030, Swallow whole; DO NOT crush or chew. If patient unable to swallow whole tablet; dissolve whole tablet (do not crush) in 120 mL of water prior to administration (may take up to 2 minutes to dissolve). Given06/23/2025 12:42 AM EDT20 mEqdocumented in this encounter Active and Recently Administered Medications Times are shown in EDT.Medication Order/51 acetaminophen 650 mg tab(s) (TYLENOL) (COMPLETED) 650 mg, ORAL, ONCE, 1 dose, On [place] 06/23/25 at 0000 * 2340 (Given - Provider: Flores Serrano RN) fentaNYL 50 mcg/mL 50 mcg injection (SUBLIMAZE) (COMPLETED) 50 mcg, INTRAVENOUS, ONCE, 1 dose, On [place] 06/23/25 at 0000 * 2340 (Given - Provider: Flores Serrano RN) fentaNYL 50 mcg/mL 50 mcg injection (SUBLIMAZE) (COMPLETED) 50 mcg, INTRAVENOUS, ONCE, 1 dose, On [place] 06/23/25 at 0130 * 0127 (Given - Provider: Arlen Weiss RN) fentaNYL 50 mcg/mL 50 mcg injection (SUBLIMAZE) (COMPLETED) 50 mcg, INTRAVENOUS, ONCE, 1 dose, On [place] 06/23/25 at 0430 * 0427 (Given - Provider: Flores Serrano RN) keTORolac 15 mg injection (Toradol) (COMPLETED) 15 mg, INTRAVENOUS, ONCE, 1 dose, On Fri06/22/25 at 2200, Ketorolac (Toradol) is indicated for theshort-term (up to 5 days) management of moderately severe acute pain. Continuation of ketorolac (Toradol) beyond 5 days increases the risk of developing serious adverse events. Please verify the duration of therapy for ketorolac (Toradol)., Pharmacist may modify dose per [facility] dose optimization consult agreement: Yes * 1823 (Given - Provider: Greg Klein RN) keTORolac 15 mg injection (Toradol) (COMPLETED) 15 mg, INTRAVENOUS, ONCE, 1 dose, On [place] 06/23/25 at 0130, Ketorolac (Toradol) is indicated for theshort-term (up to 5 days) management of moderately severe acute pain. Continuation of ketorolac (Toradol) beyond 5 days increases the risk of developing serious adverse events. Please verify the duration of therapy for ketorolac (Toradol)., Pharmacist may modify dose per [facility] dose optimization consult agreement: Yes * 0126 (Given - Provider: Arlen Weiss RN) lidocaine - VERIFY PATCH(Linked Group 1) ONCE, THIS IS USED ONLY TO DOCUMENT THAT THE PATCH IS VERIFIED ON OR OFF PER ORDER. Use Patch On or Patch Off action. lidocaine 4 % 1 patch (SALONPAS) (COMPLETED)(Linked Group 1) 1 patch, TRANSDERMAL, ONCE, 1 dose, On Fri06/22/25 at 2200, APPLY TO: CHEST - Remove patch after 12 hours. * 221 (Given - Provider: Greg Klein RN) lidocaine patch - REMOVE(Linked Group 1) ONCE, Remove patch for 12 hours per day. THIS IS USED ONLY TO DOCUMENT PATCH REMOVAL. Use Remvd Patch action. magnesium sulfate iv piggyback in sterile water 2 g 50 mL (COMPLETED) 2 g, INTRAVENOUS, at 25 mL/hr, Administer over 2 Hours, ONCE, 1 dose, On [place] 06/23/25 at 0030, Magnesium sulfate iv bolus will be infused at a rate of 1 gram/hr The following nursing units may administer 2 g dose over 1 hour if necessary: ICUs/PACU/ED, Adult Hematology/Oncology, Labor and Delivery, Cardiac Stepdown, Headache Clinic If necessary, a magnesium sulfate bolus may be administeredgreater than 2 g/hr for the following indications: Adult and Pediatric Asthma Exacerbations, Torsade de Pointes, Pediatric BMT and Hematology/Oncology, Eclampsia or Preeclampsia * 0042 (New Bag/Syringe/Bottle - Provider: Arlen Weiss RN) * 0235 (Infusion Complete - Provider: Arlen Weiss RN) NaCl 0.9% 1,000 mL iv bolus (COMPLETED) 1,000 mL, INTRAVENOUS, at 999 mL/hr, Administer over 1 Hours, ONCE, 1 dose, On Fri06/22/25 at 2200 * 2219 (New Bag/Syringe/Bottle - Provider: Greg Klein RN) * 0042 (Infusion Complete - Provider: Arlen Weiss RN) NaCl 0.9% 1,000 mL iv bolus (COMPLETED) 1,000 mL, INTRAVENOUS, at 999 mL/hr, Administer over 1 Hours, ONCE, 1 dose, On [place] 06/23/25 at 0130 * 0127 (New Bag/Syringe/Bottle - Provider: Arlen Weiss RN) * 0303 (Infusion Complete - Provider: Arlen Weiss RN) oxyCODONE-acetaminophen 5-325 mg 1 tablet (PERCOCET) (COMPLETED) 1 tablet, ORAL, ONCE, 1 dose, On Fri06/22/25 at 2200 * 2220 (Given - Provider: Greg Klein RN) potassium chloride ER 20 mEq tab(s) (KLOR-CON) (COMPLETED) 20 mEq, ORAL, ONCE, 1 dose, On [place] 06/23/25 at 0030, Swallow whole; DO NOT crush or chew. If patient unable to swallow whole tablet; dissolve whole tablet (do not crush) in 120 mL of water prior to administration (may take up to 2 minutes to dissolve). * 0042 (Given - Provider: Arlen Weiss RN) Medication Order06/21// iv contrast (radiology procedure)(Linked Group 2) INTRAVENOUS, DIRECTED NEEDED, Starting on Fri06/22/25 at 2148, Until [place] 06/23/25 at 0631, Radiology Procedure, For CT CHEST W IVCON order No IV access, insert saline lock prior to the sedation, infusion, injection for imaging exam. Discontinue saline lock post exam. If Pt. has a central line or IVAD, may access for administration according to line specific nursing protocol. Once exam is co mplete flush line and de-access according to line specific nursing protocol in the CT contrast administration guidelines link. NaCl 0.9% iv flush bag 20 mL, INTRAVENOUS, NEEDED, Starting on [place] 06/23/25 at 0012, Until [place] 06/23/25 at 0631, See admin instructions, If no compatible primary is already running, infuse NaCl 0.9% as primary to flush tubing after non-chemotherapy, non-immunotherapy intermittent infusions. Administer at the same rateas intermittent infusion. Select the Flush Bag file on smart pump. Order Group 1: lidocaine 4 % 1 patch (SALONPAS) (COMPLETED)Jump to med 1 patch, TRANSDERMAL, ONCE, 1 dose, On Fri06/22/25 at 2200, APPLY TO: CHEST - Remove patch after 12 hours. And lidocaine patch - REMOVEJump to med ONCE, Remove patch for 12 hours per day. THIS IS USED ONLY TO DOCUMENT PATCH REMOVAL. Use Remvd Patch action. And lidocaine - VERIFY PATCHJump to med ONCE, THIS IS USED ONLY TO DOCUMENT THAT THE PATCH IS VERIFIED ON OR OFF PER ORDER. Use Patch On or Patch Off action. Group 2: CT CHEST W IVCON (COMPLETED) STAT, ONCE, On Fri06/22/25 at 2149, For 1 occurrence, Reason for Exam: Chest trauma, blunt, Contrast and Creatinine: OK to scan without eGFR-For those without risk factors for CKD or TYRONE, ED Only: FLORENTIN-2 And iv contrast (radiology procedure)Jump to med INTRAVENOUS, DIRECTED NEEDED, Starting on Fri06/22/25 at 2148, Until [place] 06/23/25 at 0631, Radiology Procedure, For CT CHEST W IVCON order No IV access, insert saline lock prior to the sedation, infusion, injection for imaging exam. Discontinue saline lock post exam. If Pt. has a central line or IVAD, may access for administration according to line specific nursing protocol. Once exam is co mplete flush line and de-access according to line specific nursing protocol in the CT contrast administration guidelines link. documented in this encounter Care Teams Team MemberRelationshipSpecialtyStart DateEnd Date Aure Ulloa DO [address] [facility] [address] [place] [address] 06/08/15 William Lama MD [address] [place], [place] [id number] [facility]SD[facility]03/30/21 William Lama MD [address] [place], [place] [id number] ReferringSpine [facility]03/30/21 Karen Sotomayor (Pt), PT [address] [place], [place] [id number] Home Care ManagerPost Acute Care04/02/21documented as of this encounter
--- OUTSIDE RECORDS SUMMARY | 2025-06-29 11:40 | XMS_ITS | Encounter Summary ---
Author Organization [facility] Address [facility] [place] [address] Care Team Providers Care Roofing Subcontractor Name Role Phone Riana Ulloapriscilla Scott DO Unavailable [phone] William Lama MD Unavailable [phone] William Lama MD Unavailable [phone] Karen Sotomayor (Pt) PT Unavailable Unavailabl e Source Comments In the event this information is protected by the Federal Confidentiality of Alcohol and Drug AbusePatient Records regulations: The Federal rules restrict any use of the information to criminally investigate or prosecute any alcohol or drug abuse patient.[facility] Reason for Visit * ReasonCommentsSore ThroatSore throat and tongue, cough, nasal congestion, headache, body ache onset yesterday . - Entered bypatientIllnessPositive exposure to Covid. Encounter Details DateTypeDepartmentCare Team (Latest Contact Info)Jqdcsvypdix26/05/2025 11:40 AM ESTOffice Visit [facility] [address] [place] [address] Jason Alvarez PA-C [address] [place] [address] URI, acute (Primary Dx) Social History Tobacco UseTypesPacks/DayYears UsedDateSmoking Tobacco: NeverSmokeless Tobacco: NeverAlcohol UseStandard Drinks/WeekCommentsNo0 (1 standard drink = 0.6 oz pure alcohol)PHQ-2AnswerDate RecordedPHQ-2 xjckr223UDIT-CAnswerDate Recorded Q1: How often do you have [...] were you homeless or living in a senior living (including now)?No 06/08/2025HC UtilitiesAnswerDate RecordedIn the past 12 months has the electric, gas, oil, or water company threatened to shut off services in your home?No06/08/2025rea Deprivation IndexAnswerDate RecordedNational Score (1- 100), lower number is lower aqwa215606/18/2024State Score (1-10), lower number is lower iacm026ata from: https://www.neighborhoodatlas.[facility]/. Last address used [address]CommentsNoSex and Gender InformationValueDate RecordedSex Assigned at BirthNot on fileLegal SexFemale 07/26/2012 9:51 AM ESTGender SbeyyiszZeztbs92/19/2021 9:24 PM EDTSexual ArkvrpjncleSkrrhbtv49/15/2024 10:47 AM ESTdocumented as of this encounter Last Filed Vital Signs Vital SignReadingTime TakenCommentsBlood Keccybib447/6806/29/2025 12:44 PM EST Fscmc196306/29/2025 12:44 PM FANNkhkozhyarq05.6 ??C (97.9 ??F)06/29/2025 12:44 PM ESTRespiratory Rate--Oxygen Knjjvpvcdp38%06/29/2025 12:44 PM ESTInhaled Oxygen Concentration--Weight--Height--Body Mass Index--documented in this encounter Functional Status * Are you deaf or do you have serious difficulty hearing?AnswerDate of HhfugqvqfgYmfcssBy94/17/2025 1:59 PM Paramjit Lai RN * Are you blind or do you have serious difficulty seeing, even when wearing glasses?AnswerDate of UvbrrfblhwKqphaaNy26/17/2025 1:59 PM Paramjit Lai RN * Do you have serious difficulty walking or climbing stairs?AnswerDate of SlenssuyupTclyrvJt72/17/2025 1:59 PM Paramjit Lai RN * Do you have difficulty dressing or bathing?AnswerDate of AssessmentAuthorNo 06/10/2025 1:59 PM Paramjit Lai RN * Because of a physical, mental, or emotional condition, do you have difficulty doing errands alone such as visiting a doctor's office or shopping?AnswerDate of DlgghkolzeMbesjmUa53/17/2025 1:59 PM Paramjit Lai RN documented as of this encounter Mental Status * Because of a physical, mental, or emotional condition, do you have serious difficulty concentrating, remembering, or making decisions?AnswerEntry Date CiwcxuWh11/13/2025 1:33 PM Marylou Hart RN documented in this encounter Progress Notes * Jason Alvarez PA-C - 06/29/2025 1:27 PM EST [facility] Subjective Rebekah Thompson is a 25 year old female. Patient presents with: Sore Throat: Sore throat and tongue, cough, nasal congestion, headache, body ache onset yesterday .- Entered by patient Illness: Positive exposure to Covid. Sore Throat Illness Associated symptoms include sore throat. The patient is a 25-year-old female with a history of lupus, presenting with sneezing, congestion, headaches, and myalgias. Upper Respiratory Symptoms: - Sneezing, congestion, and headaches x several days. - Initially thought symptoms were due to seasonal allergies. - Congestion worsens at night; reports really bad headaches. - Intermittent cough. - Myalgias present. - Otalgia and sensation of ear fullness bilaterally. - Post-nasal drip noted. - Sinus tenderness bilaterally. - Taking Mucinex, which provides temporary relief and aids sleep. - Denies known HTN; reports occasional elevated blood pressure readings associated with lupus. - Feels sluggish. Allergies: - Allergic reactions include hives, rash, or anaphylaxis to fexofenadine, armida, morphine, orphenadrine, dexamethasone, ciprofloxacin, and sulfasalazine. - Intolerance to semaglutide, causing GI symptoms. Review of Systems HENT: Positive for sore throat. Constitutional: (+) fatigue Head: (+) headache Ears/Nose/Mouth/Throat: (+) sneezing, (+) nasal congestion, (+) postnasal drip, (+) sinus pain, (+)ear fullness Respiratory: (+) cough Musculoskeletal: (+) muscle aches Objective BP 105/68 (BP Site: Right Arm, BP Position: Sitting, BP Cuff Size: Large Adult) Pulse 99 Temp 36.6 ??C (97.9 ??F) (Oral) LMP 04/01/2025 SpO2 96% Physical Exam Vitals and nursing note reviewed. Constitutional: General: She is not in acute distress. Appearance: Normal appearance. She is not ill-appearing. HENT: Head: Normocephalic and atraumatic. Right Ear: Tympanic membrane and ear canal normal. Left Ear: Tympanic membrane and ear canal normal. Nose: Congestion and rhinorrhea present. Comments: Maxillary sinus tenderness on palpation bilaterally Mouth/Throat: Pharynx: Posterior oropharyngeal erythema present. No oropharyngeal exudate. Eyes: Conjunctiva/sclera: Conjunctivae normal. Cardiovascular: Rate and Rhythm: Normal rate and regular rhythm. Pulmonary: Effort: Pulmonary effort is normal. Breath sounds: Normal breath sounds. Musculoskeletal: General: No tenderness. Normal range of motion. Cervical back: Normal range of motion and neck supple. Lymphadenopathy: Cervical: No cervical adenopathy. Skin: General: Skin is warm and dry. Findings: No erythema. Neurological: Mental Status: She is alert and oriented to person, place, and time. ASSESSMENT/PLAN: 1. URI, acute (J06.9) - Acute viral URI with negative strep swab; COVID swab pending. - Start Bromfed (contains Sudafed) for decongestion. - May continue Mucinex if helpful. - Advised conservative therapy for the next few days. - Educated on expected viral course and to return if not improving by day 5-7, or if symptoms worsen (increased sinus/ear pain, chest involvement, or secondary worsening after initial improvement). - Provided school note for absence. Jason Alvarez PA-C Reviewed diagnosis and treatment options/plan with patient. The patient verbalized understanding and intent to comply with treatment. Follow-up instructions were given to the patient; they are to call their primary care provider if symptoms worsen or do not improve. Specific signs and symptoms that would indicate the need for higher level of care were discussed in detail warranting prompt ER evaluation. The patient denied further concerns/questions at the end of the visit. Medical Decision Making: Problems: Low: Acute, uncomplicated illness or injury Data: Unique test result(s) reviewed: 1 Unique test(s) ordered: 2 Risk: Low: Low risk from testing/treatment Moderate: Drug management Medical Decision Making Level: 4 - Moderate documented in this encounter Plan of Treatment DateTypeDepartmentCare Team (Latest Contact Info)Iwfqzhkcayf92/19/2025 11:00 AM ESTOffice Visit Rheumatology [address] [phone] Mirta Lanza DO [phone] [place] [address] 6m f/u sle07/18/2025 11:00 AM ESTInfusion Center Rheumatology [address] [address] [place] [M32.9] [employer] Medicare auth approved thru 08/24/25, Dr. Lanza, Q28D109/27/2024 1:00 PM [facility] Endocrinology [address] [place] [address] Gagandeep Craig, [facility] [address] [place] [address] T2DM08/10/2025 9:15 AM ESTOffice Visit [facility] [address] [place] [address] [place] [address] [place] [address] EST care ER follow up yjvctpnmtx17/22/2025 11:00 AM ESTInfusion Center Rheumatology [address] [address] [place] [M32.9] [employer] Medicare auth approved thru 08/24/25, Dr. Lanza, Q28D09/30/2025 10:00 AM ESTOffice Visit Endocrinology [address] [place] [address] Steve Cerna, [facility] [address] [place] [address] 4 month follow up10/07/2025 7:45 AM ESTOffice Visit Urology [address] [place] [address] Mirta Harris MD [address] [place], [place] [phone] ER discharge due to UTI and Kidney Stone.06/15/2026 1:00 PM EDTOffice Visit [facility] Ophthalmology [address] [place] [address] Omero Brady, OD [address] [place], [place] [id number] Annual Plaquenil Eye Examdocumented as of this encounter Procedures Procedure NamePriorityDate/TimeAssociated DiagnosisCommentsCOVID & INFLUENZA A/B & RSV PCR, EWCUFMFRzowgmx33/05/2025 1:01 PM EST URI, acute STREP A MOLECULAR (POC)Bsfewxj1606/29/2025 12:51 PM EST URI, acute documented in this encounter Results * COVID & INFLUENZA A/B & RSV PCR, ROUTINE (06/29/2025 1:01 PM EST)Component ValueRef RangeTest MethodAnalysis TimePerformed AtPathologist Signature SARS-CoV-2 (Agent of COVID-19) RNANot detectedSee comment [facility] 06/29/2025 8:25 PM ESTK[facility] LABInfluenza A RNANot detectedNot Detected [facility] 06/29/2025 8:25 PM [facility] LABInfluenza B RNANot detectedNot Detected [facility] 06/29/2025 8:25 PM [facility] LABRespiratory syncytial virus (RSV) RNANot detectedNot Detected [facility] 06/29/2025 8:25 PM [facility] LABSpecimen (Source)Anatomical Location / LateralityCollection Method / VolumeCollection TimeReceived TimeSwab NASOPHARYNGEAL SWAB / UnknownNon Blood / Coxwdgh0406/29/2025 1:01 PM EST06/29/2025 4:35 PM EST Narrative [facility] - 06/29/2025 8:25 PM EST Reference Range (the expected result in uninfected individuals): Not detected Authorizing ProviderResult TypeResult StatusJason PATELICROBIOLOGYFinal ResultPerforming OrganizationAddressCity/State/ZIP CodePhone Number [facility] [address] [place] [address], [place] * STREP A MOLECULAR (POC) (06/29/2025 12:51 PM EST)ComponentValueRef RangeTest MethodAnalysis TimePerformed AtPathologist SignatureStrep A (POCT)Negative NegativeKETTERING HEALTH TROY POINT OF CAREProcedural ControlValidKETTERING [facility]ALTH [facility] POINT OF CARESpecimen (Source)Anatomical Location / LateralityCollection Method / VolumeCollection TimeReceived TimeSwabOROPHARYNGEAL / Unknown 06/29/2025 12:51 PM EST Narrative Authorizing ProviderResult TypeResult StatusJason PATELICROBIOLOGYFinal ResultPerforming OrganizationAddressCity/State/ZIP CodePhone Number [facility] documented in this encounter Visit Diagnoses Diagnosis URI, acute- Primary Acute upper respiratory infections of unspecified site documented in this encounter Care Teams Team MemberRelationshipSpecialtyStart DateEnd Date Aure Ulloa DO [address] [facility] [address] [place] [address] 06/08/15 William Lama MD [address] [place] [address] [facility] Care ProviderSBlowing Rock Hospital03/30/21 William Lama MD [address] [place] [address] ReferringSpine [facility]03/30/21 Karen Sotomayor (Pt), PT [address] [place] [id number] Home Care ManagerPost Acute Care04/02/21documented as of this encounter
--- OUTSIDE RECORDS SUMMARY | 2025-07-05 09:40 | XMS_ITS | Encounter Summary ---
Author Organization [facility] Address [address] [place] [address] Care Team Providers Care Watch Engine Operator Name Role Phone Riana Ulloapriscilla Scott DO Unavailable [phone] William Lama MD Unavailable [phone] William Lama MD Unavailable [phone] Karen Sotomayor (Pt) PT Unavailable Unavailabl e Source Comments In the event this information is protected by the Federal Confidentiality of Alcohol and Drug AbusePatient Records regulations: The Federal rules restrict any use of the information to criminally investigate or prosecute any alcohol or drug abuse patient.[facility] Reason for Visit * ReasonCommentsDiabetes Encounter Details DateTypeDepartmentCare Team (Latest Contact Info)Nzbjhwscwkb51/11/2025 9:40 AM [facility] Endocrinology [address] [place] [address] Kasia Lam MD [address] [place] [address] Type 2 diabetes mellitus with hyperglycemia, without long-term current use of insulin (HCC) (Primary Dx); PCOS (polycystic ovarian syndrome) Social History Tobacco UseTypesPacks/DayYears UsedDateSmoking Tobacco: NeverSmokeless Tobacco: NeverAlcohol UseStandard Drinks/WeekCommentsNo0 (1 standard drink = 0.6 oz pure alcohol)PHQ-2AnswerDate RecordedPHQ-2 outpb936UDIT-CAnswerDate Recorded Q1: How often do you have [...] were you homeless or living in a long term (including now)?No 06/08/2025HC UtilitiesAnswerDate RecordedIn the past 12 months has the electric, gas, oil, or water company threatened to shut off services in your home?No06/08/2025rea Deprivation IndexAnswerDate RecordedNational Score (1- 100), lower number is lower xqhm302806/18/2024State Score (1-10), lower number is lower mbmr636ata from: https://www.neighborhoodatlas.medicine.[facility].edu/. Last address used for [address]CommentsNoSex and Gender InformationValueDate RecordedSex Assigned at BirthNot on fileLegal SexFemale 07/26/2012 9:51 AM ESTGender KoztuxsqLyngza83/19/2021 9:24 PM EDTSexual AuryyerhnksAsjquduj64/15/2024 10:47 AM ESTdocumented as of this encounter Functional Status * Are you deaf or do you have serious difficulty hearing?AnswerDate of YytblqlimcUvlpliSp39/17/2025 1:59 PM Paramjit Lai RN * Are you blind or do you have serious difficulty seeing, even when wearing glasses?AnswerDate of YkmcnocbgdBjimqeVw33/17/2025 1:59 PM Paramjit Lai RN * Do you have serious difficulty walking or climbing stairs?AnswerDate of XrcucrheyhAgtnkyRh26/17/2025 1:59 PM Paramjit Lai RN * Do you have difficulty dressing or bathing?AnswerDate of AssessmentAuthorNo 06/10/2025 1:59 PM Paramjit Lai RN * Because of a physical, mental, or emotional condition, do you have difficulty doing errands alone such as visiting a doctor's office or shopping?AnswerDate of JgkjocgjweIsfomrWn45/17/2025 1:59 PM Paramjit Lai RN documented as of this encounter Mental Status * Because of a physical, mental, or emotional condition, do you have serious difficulty concentrating, remembering, or making decisions?AnswerEntry Date EwnpmcBl45/13/2025 1:33 PM Marylou Hart RN documented in this encounter Progress Notes * Kasia Lam MD - 07/05/2025 9:41 AM EST Images from the original note were not included. VIRTUAL VISIT This is a virtual visit using [employer] (HIPAA-compliant) It required patient-provider interaction for the medical decision making as documented below. I have communicated my name and active licensure. The patient???s identity and physical location were verified at the time of this visit. Either the patient or their legal employee's representative has been informed of the risks and benefits of -- and alternatives to -- treatment through a remote evaluation and consents to proceed with the evaluation remotely. HISTORY Ms Rebekah Thompson is a 25 year old female who comes in here for Type 2 diabetes PCOS REVIEW First met me 04/2025 Previous diabetes provider: PCP then local endo Approximate age at diagnosis of diabetes: 20 y/o ( 1 year after lupus diagnosis) Circumstances surrounding the diagnosis: SLE, steroid Complications/comorbidities: Neuropathy - may be related to back injury A1c as high as 12% As low as 6.9% IMAGING: CT abd pelvis 11/2024 Excerpts: LIVER: Diffuse low attenuation consistent with fatty infiltration, similar. No acute process. GALLBLADDER/BILE DUCTS: Unremarkable. No opaque gallstones PANCREAS: Unremarkable. No mass or duct dilation SPLEEN: Unremarkable ADRENALS: Unremarkable INTERVAL HISTORY History of diabetes and related medications/devices: metformin by PCP 500 mg - fine for a while Endocrionlogist - Ozempic, weight GI issues on metformin and Ozempic together - vomiting, diarrhea Ozempic stopped Metformin alone- continued GI issues Saw manager semiconductor Metformin ER up to 1000 mg twice a day - still GI issues Current diabetes and related medications/devices: Mounjaro 5 mg weekly - some constipation, trying to hydrate Glimepiride 2 mg FSL3 plus - our sample Cymbalta for neuropathy and bipolar 2 Gabapentin for neuropathy Prednisone for SLE - joint pain,chest pain, last one 02/2025 On IUD Steroid intake including injections: Used to get for steroid injections for back pain injury Went to ED for fall down the stairs, kidney infection, chest pain Just starting exercise Several UTIs - sees uroGyn here Cysts in one ovary per patient Periods every 1.5 months On IUD has stopped periods Facial hair, body hair Was 250 lb maybe October 2024 Weight 228-232 lb No scale at home Losing inches CGM download - see procedure note CGM interpretation: TIR is at goal Good variability Few spikes Recommendation: see Assessment/Plan below PMHx/PSHx: See DM complications/comorbidities above Bipolar 2 SLE Soc Hx: Stays w dad, mom passed Fam Hx: pat GF - type 1 DM Mat GF- type 2 DM REVIEW OF SYSTEMS As above PHYSICAL EXAMINATION by video GENERAL: not in distress, well-appearing HEENT: anicteric sclerae, non-injected conjunctivae NECK: able to move easily, no obvious goiter NEUROLOGIC: alert, oriented LABS REVIEWED: Recent Labs 01/10/25 1017 04/06/25 2229 04/08/25 1452 04/27/25 1341 04/28/25 1132 04/28/25 1135 05/01/25 1800 05/01/25 1840 05/02/25 0804 05/06/25 0523 05/07/25 0550 05/20/25 1853 06/04/25 1915 06/06/25 1540 06/08/25 1332 06/09/25 1604 06/22/25 2205 ALT -- < > -- -- -- -- -- 30 -- -- -- 33 -- 29 -- -- 32 AST -- < > -- -- -- -- -- 22 -- -- -- 26 -- 16 -- -- -- UCRR 109.1 -- 128.9 -- -- 65.6 -- -- -- -- -- -- -- -- -- -- -- UALBR -- -- -- -- -- 77.2 -- -- -- -- -- -- -- -- -- -- -- UALBCR -- -- -- -- -- 118* -- -- -- -- -- -- -- -- -- -- -- TSH -- -- -- -- 1.880 -- -- -- -- -- -- -- -- -- -- -- -- CPEPT -- -- -- -- 6.0* -- -- -- -- -- -- -- -- -- -- -- -- TPROT -- < > -- -- -- -- < > 6.6 -- -- -- 7.5 -- 6.8 -- -- 7.3 ALB -- < > -- -- -- -- < > 4.1 -- -- -- 4.5 -- 4.1 -- -- 4.2 CA -- < > -- -- -- -- < > -- < > 9.6 < > 9.7 < > 9.1 9.4 9.4 9.3 TBILI -- < > -- -- -- -- < > 0.3 -- -- -- 0.2 -- 0.2 -- -- 0.3 ALKPHOS -- < > -- -- -- -- -- 84 -- -- -- 107 -- 82 -- -- 73 GLUC -- < > -- -- -- -- < > -- < > 161* < > 194* < > 254* 139* 187* 131* BUN -- < > -- -- -- -- < > -- < > 13 < > 16 < > 16 18 15 17 CREAT -- < > -- -- -- -- < > -- < > 1.21* < > 0.81 < > 0.57* 0.69 0.61 0.67 NA -- < > -- -- -- -- < > -- < > 138 < > 139 < > 137 138 134* 137 K -- < > -- -- -- -- -- 3.8 < > 3.8 < > 3.8 < > 4.3 3.7 5.0 3.7 CHLOR -- < > -- -- -- -- < > -- < > 99 < > 105 < > 102 101 100 105 CO2 -- < > -- -- -- -- < > -- < > 23 < > 18* < > 23 24 21* 20* ANION -- < > -- -- -- -- < > -- < > 16* < > 16* < > 12 13 13 12 EGFROTH -- < > -- -- -- -- < > -- < > 64 < > 103 < > 129 123 127 124 GLUCFAST -- -- -- -- 290* -- -- -- -- -- -- -- -- -- -- -- -- HBA1C -- -- -- 10.4* -- -- -- -- -- 9.1* -- -- -- -- -- -- -- < > = values in this interval not displayed. Recent Labs 04/27/25 1341 04/28/25 1132 05/06/25 0523 TG -- 395* -- CHOL -- 302* -- HDL -- 34* -- VLDL -- 84* -- LDL -- 188* -- FASTTIME -- 12 -- TCHDL -- 8.88* -- LDLHDL -- 5.53* -- NONHDL -- 268* -- HBA1C 10.4* -- 9.1* HBA0 -- -- 214 Latest Ref Rng 04/28/2025 05/01/2025 Protein, Total 6.3 - 8.0 g/dL 7.7 Albumin 3.9 - 4.9 g/dL 4.3 Calcium 8.5 - 10.2 mg/dL 9.9 Bilirubin, Total 0.2 - 1.3 mg/dL 0.4 Glucose 74 - 99 mg/dL 171 (H) BUN 7 - 21 mg/dL 13 Creatinine 0.58 - 0.96 mg/dL 0.56 (L) Sodium 136 - 144 mmol/L 135 (L) Chloride 98 - 107 mmol/L 100 CO2 22 - 30 mmol/L 21 (L) Anion Gap 8 - 15 mmol/L 14 eGFR >=60 mL/min/1.73m 130 Cholesterol, Total <200 mg/dL 302 (H) Triglyceride <150 mg/dL 395 (H) HDL Cholesterol >39 mg/dL 34 (L) LDL Cholesterol, Calculated <100 mg/dL 188 (H) Non HDL Cholesterol <130 mg/dL 268 (H) VLDL Cholesterol <30 mg/dL 84 (H) TC:HDL Ratio <5.10 8.88 (H) LDL:HDL Ratio <2.54 5.53 (H) Fasting Time hrs 12 Creatinine, Ur Random (UCRR) 20.0 - 300.0 mg/dL 65.6 Albumin, Urine Random mg/L 77.2 Albumin/Creat Ratio <30 mg/g 118 (H) Glutamic Acid Decarboxylas Ab Qualitative Negative Negative Glutamic Acid Decarboxylase Ab <=5.0 IU/mL <5.0 Insulin Antibody, Qual Negative Negative Insulin Antibody <0.4 U/mL <0.4 C-Peptide 1.1 - 4.4 ng/mL 6.0 (H) Glucose, Fasting 74 - 99 mg/dL 290 (H) TSH 0.270 - 4.200 mIU/L 1.880 Islet Cell Ab <1:4 <1:4 Zinc Transporter 8 Antibody 0.0 - 15.0 U/mL <10.0 Insulinoma Assoc Ab 2, Blood <7.5 U/mL <5.4 DHEA-S 98.8 - 340.0 ug/dL 214.7 Testosterone, Total by MS 8.0 - 60.0 ng/dL 21.4 Androstenedione <1.6 ng/mL 1.0 Hydroxyprogesterone <=206.00 ng/dL 17.50 Legend: (H) High (L) Low IMAGIN05/2025 CT flank - ED visit Abdomen and Pelvis: Liver: Unremarkable. Biliary: The gallbladder is unremarkable. Spleen: No splenomegaly. Pancreas: Unremarkable. Adrenals: Normal. PAST MEDICAL HISTORY Diagnosis Date Coitus painful for female Endometriosis Ovarian cyst Postcoital bleeding Systemic lupus erythematosus (HCC) PAST SURGICAL HISTORY Procedure Laterality Date ADDED SPINAL DISK SURGERY N/A x 4; 1 fusion and 3 discectomies Social History Tobacco Use Smoking status: Never Smokeless tobacco: Never Vaping Use Vaping status: Never Used Substance Use Topics Alcohol use: No Drug use: No FAMILY HISTORY Problem Relation Age of Onset [...] Paternal Grandfather No Ocular Disease Paternal Grandfather Current Outpatient Medications Medication Sig Vmvlyzleuccehyl-Qrwiwuzbg-OW (BROMFED DM) 2-30-10 mg/5 mL syrup Take 10 mL by mouth three times a day as needed. tiZANidine HCl (ZANAFLEX) 4 mg capsule Take 4 mg by mouth two times a day. polyethylene glycol 3350 17 gram packet Take 1 packet by mouth once daily as needed for constipation. Dissolve dose in 4 - 8 ounces of liquid and take as directed. (Patient not taking: Reported on 06/29/2025) ondansetron (ZOFRAN) 4 mg tablet Take 1 tablet by mouth every 6 hours as needed for nausea/vomiting. trimethoprim (PROLOPRIM) 100 mg tablet Take 1 tablet by mouth once daily. tacrolimus (PROTOPIC) 0.1 % ointment Apply to affected area two times a day. losartan (COZAAR) 25 mg tablet Take 1 tablet by mouth once daily. Blood-Glucose Sensor (FREESTYLE NIESHA 3 PLUS SENSOR) nickolas Apply new sensor every fifteen (15) days to upper arm. E11.65 glimepiride (AMARYL) 2 mg tablet Take 1 tablet by mouth daily with breakfast. atorvastatin (LIPITOR) 20 mg tablet Take 1 tablet by mouth daily at bedtime. hydrOXYzine HCl (ATARAX) 25 mg tablet Take 1 tablet by mouth every 12 hours as needed for itching/rash. (Patient not taking: Reported on 06/29/2025) lactobacillus rhamnosus (CULTURELLE) 10 billion cell capsule Take 1 capsule by mouth once daily. (Patient not taking: Reported on 06/29/2025) blood sugar diagnostic (ACCU-CHEK GUIDE TEST STRIPS) test strip Use with blood glucose test twice aday, different times E11.65 Blood-Glucose Meter (ACCU-CHEK GUIDE ME GLUCOSE MTR) Use as directed E11.65 Lancets Use with blood glucose test twice a day E11.65 tirzepatide (MOUNJARO) 5 mg/0.5 mL pen injector Inject 5 mg subcutaneously one time a week. (This is AFTER the 4 weeks of 2.5 mg weekly) Surgical Lubricant Jelly gel For MRI Female Pelvis, MRI department to provide. Administer intra-vaginal Surgilube immediately prior the MRI procedure (total amount to patient toleranace). (Patient not taking: Reported on 06/29/2025) gabapentin (NEURONTIN) 800 mg tablet Take 800 mg by mouth three times a day as needed. levonorgestrel (LILETTA) 20.4 mcg/24 hr (8 yrs) 52 mg IUD 1 Intra Uterine Device by INTRAUTERINE route. lamoTRIgine (LAMICTAL) 25 mg tablet Take 75 mg by mouth once daily. EPINEPHrine (EPIPEN) 0.3 mg/0.3 mL auto-injector Inject 0.3 mg subcutaneously. albuterol HFA (PROVENTIL HFA, VENTOLIN HFA) 90 mcg/actuation inhaler Inhale 2 puffs as instructed. acetaminophen (TYLENOL) 500 mg tablet Take 1,000 mg by mouth. lisdexamfetamine (VYVANSE) 30 mg capsule Take 30 mg by mouth every morning. (Patient not taking: Reported on 06/13/2025) hydrOXYchloroQUINE (PLAQUENIL) 200 mg tablet Take 2 tablets by mouth once daily. busPIRone (BUSPAR) 15 mg tablet Take 15 mg by mouth two times a day. DULoxetine (CYMBALTA) 60 mg capsule Take 60 mg by mouth once daily. No current facility-administered medications for this visit. ALLERGIES Allergen Reactions Jeff Hives Morphine Hives, Itching Orphenadrine Anaphylaxis, Cough, Shortness of Breath, Swelling Added to allergy list after having a reaction when given on 12/20/24 Dexamethasone Rash Develops a rash and chest gets real tight Ciprofloxacin Anaphylaxis Hives In arm while infusion running, facial redness, throat sweling Semaglutide GI Upset Sulfasalazine Other: See Comments Weight loss, elevations of inflammatory markers ASSESSMENT/PLAN Type 2 diabetes (neg type 1 DM antibodies, high C-peptide - in 2024) Cushingoid features, attributed to exogenous steroids With complications/comorbidities as above Managing as PCOS - normal thyroid, 17OHP, normal androgens ? Fatty liver by CT in 2024 On and off steroids Diabetes medication changes Will not yet inc Mounjaro - constipation, normal when tried skipping a week; get fiber OTC Continue glimepiride for now - Reviewed potential GI side effects of Mounjaro (diarrhea, constipation, vomiting); instructed to report any adverse effects. SGLT2 not good at this high A1c Also has frequent UTIs Check glucose via fingerstick or CGM, she thinks Dexcom is covered by Medicaid Hypoglycemia prevention, recognition and treatment reviewed. Contact me. Glucagon - n/a Diabetes health maintenance record reviewed considerations: on IUD Blood pressure: defer to PCP Albumin/crea ratio: at least yearly Lipids: on statin? no Dilated eye exam: yearly or per ophthalmology recommendations Foot exam: at least yearly Meals and exercise: discussed increasing exercise On IUD FIB-4 Calculation: 0.22 at 06/22/2025 10:05 PM Calculated from: SGOT/AST: 16 U/L at 06/06/2025 3:40 PM SGPT/ALT: 32 U/L at 06/22/2025 10:05 PM Platelets: 338 k/uL at 06/22/2025 10:05 PM Age: 25 years Labs/Imaging/Consults/Scripts/Follow-up: 2mo Steve Cerna BASKET OPERATOR Then me 6 mo Labs A1c and fasting lipid before 2 mo visit, include prolactin to complete PCOS labs (E11.65) Type 2 diabetes mellitus with hyperglycemia, without long-term current use of insulin (HCC) (primary encounter diagnosis) Comment: Plan: Blood-Glucose Meter,Continuous (DEXCOM G7 RADIOLOGY INTERVENTIONAL PHYSICIAN) misc, Blood-Glucose Sensor (DEXCOM G7 SENSOR) nickolas, tirzepatide (MOUNJARO) 5 mg/0.5 mL pen injector, HEMOGLOBIN A1C, LIPID PANEL, FASTING, CANCELED: HEMOGLOBIN A1C, CANCELED: LIPID PANEL, FASTING (E28.2) PCOS (polycystic ovarian syndrome) Comment: Plan: PROLACTIN Patient to contact me/my office: if has not received a note from me summarizing your lab or imaging within a week of your seeing/receiving results. 2. sooner than the recommended follow-up if with issues/concerns. 3. If not seeing lab/imaging orders prior to next visit Please see your primary care provider and other specialists for issues not explained by the condition you are seeing me for. I have provided my contact information. Kasia Lam MD, MPH July 05, 2025 10:18 AM documented in this encounter Procedure Notes * Cameron Calderon MA - 07/05/2025 9:40 AM ESTProcedure(s): EXTERNAL RADIOLOGY INTERVENTIONAL PHYSICIAN, CGM SYS Images from the original note were not included. documented in this encounter Plan of Treatment DateTypeDepartmentCare Team (Latest Contact Info)Draopkxlyyk60/19/2025 11:00 AM ESTOffice Visit Rheumatology [address] [address] Mirta Lanza DO [address], [address] [place] [address] 6m f/u sle07/18/2025 11:00 AM ESTInfusion Center Rheumatology [address] [address] [place] [M32.9] [employer] Medicare auth approved thru 08/24/25, Dr. Lanza, Q28D109/27/2024 1:[facility] [address] [place] [address] Gagandeep Craig, [facility] [address] [place] [address] T2DM08/10/2025 9:15 AM ESTOffice Visit Family Medicine [facility] [address] [place] [address] [place] [address] [place] [address] EST care ER follow up mkricaavdg45/22/2025 11:00 AM ESTInfusion Center Rheumatology [address] [address] [place] [M32.9] [employer] Medicare auth approved thru 08/24/25, Dr. Lanza, Q28D09/30/2025 10:00 AM ESTOffice Visit Endocrinology [address] [place] [address] Steve Cerna, WASTEWATER ANALYST LAB ANALYST.CUSTODY ASSISTANT [address] [place], [place] [id number] 4 month follow up10/07/2025 7:45 AM ESTOffice Visit Urology [address] [place] [address] Mirta Harris MD [address] [place], [place] [id number] ER discharge due to UTI and Kidney Stone.06/15/2026 1:00 PM EDTOffice Visit [facility]HT Ophthalmology [address] [place] [address] Omero Brady, OD [address] [place] [address] Annual Plaquenil Eye ExamNameTypePriorityAssociated DiagnosesOrder Schedule PROLACTINLabRoutine PCOS (polycystic ovarian syndrome) Expected: 09/04/2025 (Approximate), Expires: 12/04/2025HEMOGLOBIN Q2EMaaEckzceb Type 2 diabetes mellitus with hyperglycemia, without long-term current use of insulin (HCC) Expected: 09/04/2025, Expires: 10/04/2025LIPID PANEL, FASTINGLabRoutine Type 2 diabetes mellitus with hyperglycemia, without long-term current use of insulin (HCC) Expected: 09/04/2025, Expires: 10/04/2025documented as of this encounter Visit Diagnoses Diagnosis Type 2 diabetes mellitus with hyperglycemia, without long-term current use of insulin (HCC)- Primary PCOS (polycystic ovarian syndrome) Polycystic ovaries documented in this encounter Care Teams Team MemberRelationshipSpecialtyStart DateEnd Date Aure Ulloa DO [address] [address] 06/08/15 William Lama MD [address] [address] [facility] ProviderSWashington [facility]03/30/21 William Lama MD [address] [address] Ref[facility]SpC[facility]03/30/21 Karen Sotomayor (Pt), PT [address] [address] Home Care ManagerPost Acute Care04/02/21documented as of this encounter
[2025-07-06 10:41] VITALS: BP 146/94; PULSE 77; TEMP 36.7; O2SAT 97; BMI 32.7
--- OUTSIDE RECORDS SUMMARY | 2025-07-06 10:59 | XMS_ITS | Clinical Summary ---
Author Organization [facility] Address [address] [place] [address] Care Team Providers Care Administration Vice President Name Role Phone Unavailable Primary Care Provider Unavailabl e Social History Tobacco UseTypesPacks/DayYears UsedDateSmoking Tobacco: Never Assessed CommentsUnknownSex and Gender InformationValueDate RecordedSex Assigned at Not on fileLegal OhrJbnkzu32/15/2023 8:14 PM EDTGender IdentityNot on fileSexual OrientationNot on file Last Filed Vital Signs Vital SignReadingTime TakenCommentsBlood Pressure--Pulse--Temperature-- Respiratory Rate--Oxygen Saturation--Inhaled Oxygen Concentration--Xfmgae83.3 kg (210 lb)11/12/2017 12:00 PM KUTJbcyhd824.7 cm (5' 8 )11/12/2017 12:00 PM EDTBody Mass Index31.9311/12/2017 12:00 PM EDT Plan of Treatment Not on file
--- OUTSIDE RECORDS SUMMARY | 2025-07-06 10:59 | XMS_ITS | Encounter Summary ---
Author Organization [facility] Address [facility] [place] [address] Care Team Providers Care Casting Machine Set Up Operator Name Role Phone Laila Aure Scott DO Unavailable [phone] William Lama MD Unavailable [phone] William Lama MD Unavailable [phone] Karen Sotomayor (Pt) PT Unavailable Unavailabl e Source Comments In the event this information is protected by the Federal Confidentiality of Alcohol and Drug AbusePatient Records regulations: The Federal rules restrict any use of the information to criminally investigate or prosecute any alcohol or drug abuse patient.[facility] Encounter Details DateTypeDepartmentCare Team (Latest Contact Info)Eyqoysxdzhg20/29/2025Travel Social History Tobacco UseTypesPacks/DayYears UsedDateSmoking Tobacco: NeverSmokeless Tobacco: NeverAlcohol UseStandard Drinks/WeekCommentsNo0 (1 standard drink = 0.6 oz pure alcohol)PHQ-2AnswerDate RecordedPHQ-2 [id number]-CAnswerDate Recorded Q1: How often do you have [...] were you homeless or living in a longterm (including now)?No 06/08/2025HC UtilitiesAnswerDate RecordedIn the past 12 months has the electric, gas, oil, or water [employer] threatened to shut off services in your home?No06/08/2025rea Deprivation IndexAnswerDate RecordedNational Score (1- 100), lower number is lower piyi897506/18/2024State Score (1-10), lower number is lower [id number] from: https://www.neighborhoodatlas.medicine.[facility].edu/. Last address used for [address]CommentsNoSex and Gender InformationValueDate RecordedSex Assigned at BirthNot on fileLegal SexFemale 07/26/2012 9:51 AM ESTGender CgowgybnTnzzgu03/19/2021 9:24 PM EDTSexual UrycrwxwsrcZynhlcjo91/15/2024 10:47 AM ESTdocumented as of this encounter Functional Status * Are you deaf or do you have serious difficulty hearing?AnswerDate of KzgasunqvhUscojdSi79/17/2025 1:59 PM Paramjit Lai RN * Are you blind or do you have serious difficulty seeing, even when wearing glasses?AnswerDate of JntqyyajekRrqfjpSw52/17/2025 1:59 PM Paramjit Lai RN * Do you have serious difficulty walking or climbing stairs?AnswerDate of WfocrqchmuXzmtlyEu66/17/2025 1:59 PM Paramjit Lai RN * Do you have difficulty dressing or bathing?AnswerDate of AssessmentAuthorNo 06/10/2025 1:59 PM Paramjit Lai RN * Because of a physical, mental, or emotional condition, do you have difficulty doing errands alone such as visiting a doctor's office or shopping?AnswerDate of JvnrepwkvhRrguagKt34/17/2025 1:59 PM aPramjit Lai RN documented as of this encounter Mental Status * Because of a physical, mental, or emotional condition, do you have serious difficulty concentrating, remembering, or making decisions?AnswerEntry Date RhhsktXi98/13/2025 1:33 PM Marylou Hart RN documented in this encounter Plan of Treatment DateTypeDepartmentCare Team (Latest Contact Info)Piqiinejpyf34/19/2025 11:00 AM ESTOffice Visit Rheumatology [address] [address] Mirta Lanza, DO [address] [facility], [address] [place] [address] 6m f/u sle07/18/2025 11:00 AM ESTInfusion Center Rheumatology [address] [address] [place] [M32.9] [employer] Medicare auth approved thru 08/24/25, Dr. Lanza, Q28D109/27/2024 1:00 PM ESTDistance Health Endocrinology [address] [place] [address] Gagandeep Craig, [facility] [address] [place] [address] T2DM08/10/2025 9:15 AM ESTOffice Visit Family Medicine [facility] [address] [place] [address] [place] [address] [place] [address] EST care ER follow up ztbsomctqw95/22/2025 11:00 AM ESTInfusion Center Rheumatology [address] [address] [place] [M32.9] [employer] Medicare auth approved thru 08/24/25, Dr. Lanza, Q28D09/30/2025 10:00 AM ESTOffice Visit Endocrinology 9[address] [place] [address] Steve Cerna, DIRECTOR SEARCH.FLOUR TESTER [address] [place], [place] [id number] 4 month follow up10/07/2025 7:45 AM ESTOffice Visit Urology [address] [place] [address] Mirta Harris MD [address]00 [place], [place] [phone] ER discharge due to UTI and Kidney Stone.06/15/2026 1:00 PM EDTOffice Visit OPHT Ophthalmology 5[address] [place] [address] Omero Brady, OD [address] [place] [address] Annual Plaquenil Eye Examdocumented as of this encounter Visit Diagnoses Not on filedocumented in this encounter Care Teams Team MemberRelationshipSpecialtyStart DateEnd Date Aure Ulloa DO [address] [facility] [address] [place] [address] 06/08/15 William Lama MD [address] [place], [place] [id number] [facility]SD[facility]03/30/21 William Lama MD [address] [place] [address] ReferringSpine [facility]03/30/21 Karen Sotomayor (Pt), PT [address] [place] [address] Home Care ManagerPost Acute Care04/02/21documented as of this encounter
--- OUTSIDE RECORDS SUMMARY | 2025-07-06 10:59 | XMS_ITS | Encounter Summary ---
Author Organization [facility] Address [address] [place] [address] Care Team Providers Care Medical Billing Instructor Name Role Phone Riana Ulloapriscilla Scott DO Unavailable [phone] William Lama MD Unavailable [phone] William Lama MD Unavailable [phone] Karen Sotomayor (Pt) PT Unavailable Unavailabl e Source Comments In the event this information is protected by the Federal Confidentiality of Alcohol and Drug AbusePatient Records regulations: The Federal rules restrict any use of the information to criminally investigate or prosecute any alcohol or drug abuse patient.[facility] Reason for Visit * ReasonCommentsChest Pain Encounter Details DateTypeDepartmentCare Team (Latest Contact Info)Ozzszwyuaty29/29/2025Nurse Triage NUR[employer] CONTROLLER [address] [place] [id number] Jaida Rojo RN Chest Pain Social History Tobacco UseTypesPacks/DayYears UsedDateSmoking Tobacco: NeverSmokeless Tobacco: NeverAlcohol UseStandard Drinks/WeekCommentsNo0 (1 standard drink = 0.6 oz pure alcohol)PHQ-2AnswerDate RecordedPHQ-2 nojpf365/19/2025AUDIT-CAnswerDate Recorded Q1: How often do you have [...] were you homeless or living in a care home (including now)?No 06/08/2025HC UtilitiesAnswerDate RecordedIn the past 12 months has the [employer], gas, oil, or water [employer] threatened to shut off services in your home?No06/08/2025rea Deprivation IndexAnswerDate RecordedNational Score (1- 100), lower number is lower clqj412306/18/2024State Score (1-10), lower number is lower jtrs310ata from: https://www.neighborhoodatlas.medicine.[facility].edu/. Last address used for [address]1regnantCommentsNoSex and Gender InformationValueDate RecordedSex Assigned at BirthNot on fileLegal SexFemale 07/26/2012 9:51 AM ESTGender NpurwcaqDezkbo81/19/2021 9:24 PM EDTSexual KujhltluzlmXmxrvvdu04/15/2024 10:47 AM ESTdocumented as of this encounter Functional Status * Are you deaf or do you have serious difficulty hearing?AnswerDate of KqmxrsksttTufwxhNj58/17/2025 1:59 PM Paramjit Lai RN * Are you blind or do you have serious difficulty seeing, even when wearing glasses?AnswerDate of YhbzorafnaLdexggLu82/17/2025 1:59 PM Paramjit Lai RN * Do you have serious difficulty walking or climbing stairs?AnswerDate of BrtqfbjjyrJyunjbEa79/17/2025 1:59 PM Paramjit Lai RN * Do you have difficulty dressing or bathing?AnswerDate of AssessmentAuthorNo 06/10/2025 1:59 PM Paramjit Lai RN * Because of a physical, mental, or emotional condition, do you have difficulty doing errands alone such as visiting a doctor's office or shopping?AnswerDate of KhftouupsdYfkogzEs04/17/2025 1:59 PM Paramjit Lai RN documented as of this encounter Mental Status * Because of a physical, mental, or emotional condition, do you have serious difficulty concentrating, remembering, or making decisions?AnswerEntry Date XeucugMy20/13/2025 1:33 PM Marylou Hart RN documented in this encounter Miscellaneous Notes * Telephone Encounter - Jaida Rojo RN - 06/22/2025 5:59 PM EDT Reason for Conversation Chest Pain Background 1 1/2 hours of chest pain Disposition Call EMS 911 Now; patient plans on having a friend transport her to Emergency Department of undecided location; Reason for Disposition [1] Chest pain lasts > 5 minutes AND [2] age > 30 AND [3] one or more cardiac risk factors (e.g., diabetes, high blood pressure, high cholesterol, obesity with BMI 30 or higher, smoker, or strong family history of heart disease) No Initial Assessment on file. No Additional Information on file. Protocols Used Chest Hldh-Xfjkw-QW documented in this encounter Plan of Treatment DateTypeDepartmentCare Team (Latest Contact Info)Cpgdxgphfqn54/19/2025 11:00 AM ESTOffice Visit Rheumatology [address] [address] Mirta Lanza, DO [address]00 [facility], [address] [place] [address] 6m f/u sle07/18/2025 11:00 AM ESTInfusion Center Rheumatology [address] [address] [place] [M32.9] [employer] Medicare auth approved thru 08/24/25, Dr. Lanza, Q2807/27/2025 1:00 PM ESTDistance [facility] Endocrinology [address] [place] [address] [facility]andeep [facility] [address] [place] [address] T2DM08/10/2025 9:15 AM ESTOffice Visit Family Medicine [facility] [address] [place] [address] [place] [address] [place] [address] EST care ER follow up hidwixmots90/22/2025 11:00 AM ESTInfusion Center Rheumatology [address] [address] [place] [M32.9] [employer] Medicare auth approved thru 08/24/25, Dr. Lanza, Q28D09/30/2025 10:00 AM ESTOffice Visit Endocrinology [address] [place], [place] [phone] Steve Cerna, FIREWALL ENGINEER.TRIMMING INSPECTOR [address] [place] [address] 4 month follow up10/07/2025 7:45 AM ESTOffice Visit Urology [address] [place] [address] Mirta Harris MD [address] [place] [address] ER discharge due to UTI and Kidney Stone.06/15/2026 1:00 PM EDTOffice Visit OPHT Ophthalmology 5001 [place] [address] Omero Brady, OD [address] [place] [address] Annual Plaquenil Eye Examdocumented as of this encounter Visit Diagnoses Not on filedocumented in this encounter Care Teams Team MemberRelationshipSpecialtyStart DateEnd Date Aure Ulloa DO [address] [facility] [address] [place] [address] 06/08/15 William Lama MD [address] [place] [address] Home Care ProviderSFormerly [facility]03/30/21 William Lama MD [address] [place] [address] ReferringSpSentara [facility]03/30/21 Karen Sotomayor (Pt), PT [address] [place] [address] Home Care ManagerPost Acute Care04/02/21documented as of this encounter
--- OUTSIDE RECORDS SUMMARY | 2025-07-06 11:00 | XMS_ITS | Clinical Summary ---
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 type, unspecified organ involvement status (HCC) [M32.9] Discharge Disposition: Home04/29/20259636Kgaiiv23/03/2025 3:00 PM EDTNurse Visit Diabetic Education Main X20 [id number] [id number] Akin Ruiz, JUICE Type 2 diabetes mellitus with hyperglycemia, unspecified whether snf insulin use (HCC) (Primary Dx)04/27/2025 2:25 PM EDTOffice Visit Endocrinology [address] [place] [address] Kasia Lam MD Type 2 diabetes mellitus with hyperglycemia, without long-term current use of insulin (HCC) (Primary Dx); Type 2 diabetes mellitus with other specified complication, without long-term current use of insulin (HCC); PCOS (polycystic ovarian syndrome)04/27/20258344Bzurao27/28/2025 11:00 AM EDT [facility] Rheumatology [address] [address] Systemic lupus erythematosus, unspecified SLE type, unspecified organ involvement status (HCC) (Primary Dx)04/21/2025 Patient Msg Angio [address] [place] [address] Provider, Ccf Pre Procedure Instructions Orders Only Angio [address] [place] [address] Marii Mejia RN Systemic lupus erythematosus, unspecified SLE type, unspecified organ involvement status (HCC) (Primary Dx)04/14/2025 1:00 PM EDTOffice Visit Gynecology [address] [address] Us, Health And Physical Education Professor Main Pelvic pain in beavwl2004/14/2025Results Follow-Up Obstetrics/Gynecology [address] [place] [address] Faye Douglas MD 04/13/2025 9:00 AM EDTOffice Visit Obstetrics/Gynecology [address] [place] [address] Faye Douglas MD Encounter for gynecological examination with abnormal finding (Primary Dx); Vaginal dryness; Screening for cervical cancer; Pelvic pain in female; Screening examination for STI; Vaginal sskxaojfok17/14/2025 1:06 AM EDT - 04/07/2025 3:49 [facility] [address] [place] [address] Jaelel Smallwood MD chest pain Discharge Disposition: Home04/07/2025 Get Medical Advice Rheumatology [address] [address] Mirta Lanza DO ER visit follow up. 04/06-Travel04/06/2025 5:52 PM EDT - 04/07/2025 12:24 AM [facility] Emergency Department [address] [place] [address] chest pain, sob Discharge Disposition: AMA/Discontinuation of Care-Use additional discharge code 04/06/2025Travelfrom Last 3 Months Immunizations ImmunizationAdministration DatesNext DueCOVID- original vaccine, age 12+ yr, monovalent (Shareholder In[employer] Travel - PURPLE TOP)08/21/2021Haemophilus influenzae b (Hib PRP-OMP) vaccine, 3-dose series (PEDVAX HIB)1999,1999Haemophilus influenzae b (Hib PRP-T) vaccine, 4-dose series (ACTHIB, HIBERIX)1999 Haemophilus influenzae b-hepatitis B (Hib-HepB) vaccine (COMVAX)1999 diphtheria tetanus pertussis (DTaP) vaccine, pediatric (INFANRIX)11/23/2004 diphtheria tetanus pertussis (DTaP) vaccine, unspecified xzojxnqrtyv82/10/2000, 1999,1999,1999hepatitis B (HepB) vaccine, 3-dose series, age 0 yr - 19 yr (ENGERIX B-PEDS, RECOMBIVAX HB-PEDS)1999,1999influenza (IIV3) vaccine, trivalent, PF (AFLURIA, FLUARIX, FLULAVAL, FLUVIRIN, FLUZONE) 05/06/2024influenza (IIV4) vaccine, age 6 mo - 64 yr, quadrivalent, PF (AFLURIA, FLUARIX, FLULAVAL, FLUZONE)10/03/2023,07/01/2022measles mumps rubella (MMR) vaccine (M-M-R II, PRIORIX)11/23/2004,1999meningococcal (MenACWY-D) vaccine, quadrivalent (MENACTRA)04/03/2017poliovirus (IPV) vaccine, inactivated (IPOL)11/23/2004,1999,1999poliovirus (OPV) vaccine, trivalent, live, oral (ORIMUNE)1999 Family History Medical HistoryRelationCommentsNo Ocular DiseaseBrotherNo Ocular DiseaseFather CancerMaternal Grandfatherthroat/esophageal cancerCataractMaternal Grandfather DiabetesMaternal GrandfatherHeartMaternal GrandfatherHypertensionMaternal GrandfatherCancerMaternal Grandmothernon-Hodgkins lymphomaHypertensionMaternal GrandmotherNo Ocular DiseaseMaternal GrandmotherHypertensionMotherLiver cirrhosisMotherNo Ocular DiseaseMotherRheumatoid arthritisMotherDiabetesPaternal GrandfatherHeartPaternal GrandfatherHypertensionPaternal GrandfatherNo Ocular DiseasePaternal GrandfatherCancerPaternal Grandmotherliver cancerHeartPaternal GrandmotherHypertensionPaternal GrandmotherNo Ocular DiseasePaternal Grandmother No Ocular DiseaseSisterRelationStatusCommentsBrotherAliveFatherAliveMaternal GrandfatherDeceasedMaternal GrandmotherAliveMotherDeceasedPaternal Grandfather DeceasedPaternal GrandmotherAliveSisterAlive Social History Tobacco UseTypesPacks/DayYears UsedDateSmoking Tobacco: NeverSmokeless Tobacco: NeverAlcohol UseStandard Drinks/WeekCommentsNo0 (1 standard drink = 0.6 oz pure alcohol)PHQ-2AnswerDate RecordedPHQ-2 phnds052UDIT-CAnswerDate Recorded Q1: How often do you have [...] were you homeless or living in a mcfp (including now)?No 06/08/2025HC UtilitiesAnswerDate RecordedIn the past 12 months has the [employer], gas, oil, or water company threatened to shut off services in your home?No06/08/2025rea Deprivation IndexAnswerDate RecordedNational Score (1- 100), lower number is lower qdta374306/18/2024State Score (1-10), lower number is lower tfbn029ata from: https://www.neighborhoodatlas.medicine.[facility].edu/. Last address used for ozudtnpyyka[address] [facility]14CommentsNoSex and Gender InformationValueDate RecordedSex Assigned at BirthNot on fileLegal SexFemale 07/26/2012 9:51 AM ESTGender SdiyoiqzCzlrkj99/19/2021 9:24 PM EDTSexual QpfbiuukbsvWlayjtad49/15/2024 10:47 AM EST Last Filed Vital Signs Vital SignReadingTime TakenCommentsBlood Fflvwhhf761/6806/29/2025 12:44 PM EST Gbdqc923106/29/2025 12:44 PM JQCCvinjxttrzw47.6 ??C (97.9 ??F)06/29/2025 12:44 PM ESTRespiratory Jpyc2483 3:06 AM EDTOxygen Sqbybttxau85%06/29/2025 12:44 PM ESTInhaled Oxygen Concentration--Dytpjf964.3 kg (225 lb 8.5 oz)06/21/2025 1:23 PM KKMMkvhrd046.7 cm (5' 8 )06/05/2025 1:08 AM EDTBody Mass Index34.29 06/05/2025 1:08 AM EDT Plan of Treatment DateTypeDepartmentCare Team (Latest Contact Info)Ztvhqqcyzjz56/19/2025 11:00 AM ESTOffice Visit Rheumatology [address] [address] Mirta Lanza DO [address] [facility], [address] [place] [address] 6m f/u sle07/18/2025 11:00 AM ESTInfusion Center Rheumatology [address] [address] [place] [M32.9] [employer] Medicare auth approved thru 08/24/25, Dr. Lanza, Q28D109/27/2024 1:00 PM ESTDistance [facility]in[facility] [address] [place] [address] Gagandeep Craig, [facility] [address] [place] [address] T2DM08/10/2025 9:15 AM ESTOffice Visit Family [facility] [address] [place] [address] [place] [address] [place] [address] EST care ER follow up ioyjogtuyb93/22/2025 11:00 AM ESTInfusion Center Rheumatology [address] [address] [place] [M32.9] [employer] Medicare auth approved thru 08/24/25, Dr. Lanza, Q28D09/30/2025 10:00 AM ESTOffice Visit Endocrinology [address] [place] [address] Steve Cerna, BISQUE GRADER.HEAD GREENSKEEPER [address] [place] [address] 4 month follow up10/07/2025 7:45 AM ESTOffice Visit Urology [address] [place] [address] Mirta Harris MD [address] [place] [address] ER discharge due to UTI and Kidney Stone.06/15/2026 1:00 PM EDTOffice Visit OPHT Ophthalmology [address] [place] [address] Omero Brady, OD [address] [place] [address] Annual Plaquenil Eye ExamHealth MaintenanceDue DateLast DoneCommentsHepatitis B Vaccine (4 of 4 - 4-dose series), 1999, 1999HPV Vaccine (1 - Risk 3-dose series)2008DTaP,Tdap,Td Vaccine (5 - Tdap) , 1999, 1999, Additional history existsPeds To Adult Transition Initial Vyledfvbob43/13/2011Peds To Adult Transition Annual Dxpeiuwphv77/13/2013nnual PCP Team Chronic Disease Visit2017Anxiety Pkdsoqqfa66/13/2017Depression Psmzjrszx43/13/2017HIV Rrqjbknka16/13/2017 Pneumococcal Vaccine (1 of 2 - PCV)2018Medicare Advantage Annual Wellness Visit5Covid-19 Vaccine (4 - 2024- season), 12/07/2020, 11/15/2020Influenza Vaccine (#1)509/07/2024, 10/03/2023, 07/01/20220596StA4T94/07/2025, 04/27/2025, 05/13/2024, Additional history existsCervical Cancer Fxnsmnvcf72, 04/13/2025Diabetic Foot Exam/10/2024LDL Cdslunpojnf86/04/202609/11/2024, 09/18/2023, 05/15/2023Urine Albumin:Creatinine Ratio/11/2024, 05/15/2023, 11/10/2020, Additional history existsDilated Retinal Exam Hepatitis C UqdacaixpQicefvxli33/19/2025 Medical Devices ImplantedTypeAreaManufacturerDevice IdentifierShelf Expiration DateModel / Serial / LotPower Injectable Vaccess Ct Plastic 8f Chronoflex Catheter With Kit - [id number] Implanted:Qty: 1 on 04/29/2025 at [facility] MAINPort[place] [id number] / / [id number] Procedures Procedure NamePriorityDate/TimeAssociated DiagnosisCommentsCOVID & INFLUENZA A/B & RSV PCR, MDAIJDPSqbvdkd00/05/2025 1:01 PM EST URI, acute STREP A MOLECULAR (POC)Hpbatlq6006/29/2025 12:51 PM EST URI, acute HIGH SENSITIVITY TROPONIN T (THIRD) 3 HRS AFTER KKIDPDRJUHA11/30/2025 3:07 AM EDT HIGH SENSITIVITY TROPONIN T (SECOND)STAT1 12:48 AM EDT MAGNESIUM KCXYSGD95/29/2025 11:[address] THORACIC SPINE W RECON FXMGVPJZ61/29/2025 11:[address] CHEST W WYHQQMAUM96/29/2025 11:29 PM EDT HCG QUAL JDTAFWR17/29/2025 10:19 PM EDT HIGH SENSITIVITY TROPONIN T (INITIAL)STAT1 10:05 PM EDT COMPLETE BLOOD XARRGQRQX28/29/2025 10:05 PM EDT COMPREHENSIVE METABOLIC NVRTMSIZQ97/29/2025 10:05 PM EDT XR RIBS/CHEST 3V AP RIB/OBLS/CXR JLYTACPX88/29/2025 8:09 PM EDT PWGScxpsoo62/29/2025 7:53 PM EDT ECG UZPZBLYTDOBT61/29/2025 7:46 PM EDTCT BRAIN WO GBVJAYQNC75/28/2025 9:54 AM EDT XR LUMBAR GENERAL 3V AP/LAT/L5-W7RLKS2806/21/2025 9:49 AM EDT XR ANKLE GENERAL 3V AP/LAT/OBL ZXLUDZDFD60/28/2025 9:49 AM EDT XR HIP GENERAL 3V PELV/AP/LAT VCLNKZTWZ23/28/2025 9:49 AM EDT VISUAL FIELD 10-2 OU (BOTH EYES)Tecpije1206/13/2025 10:26 AM EDT Long-term use of Plaquenil High risk medication use OCT MACULA CIRRUS OU (BOTH EYES)Hcvqydm3406/13/2025 9:29 AM EDT Long-term use of Plaquenil High risk medication use GLUCOSE, BLOOD (POC)Ftwkybg9806/10/2025 12:28 PM EDT GLUCOSE, BLOOD (POC)Qmldlqo7006/10/2025 8:43 AM EDT GLUCOSE, BLOOD (POC)Yyupgsd7006/09/2025 8:59 PM EDT URINALYSIS, REFLEX YDEBYOYAXVZTroengs11/16/2025 5:29 PM EDT GLUCOSE, BLOOD (POC)Klcmpdj9406/09/2025 4:54 PM EDT BASIC METABOLIC PVFHKOybaxzu03/16/2025 4:04 PM EDT COMPLETE BLOOD JYYAMEbbwajg85/16/2025 4:04 PM EDT GLUCOSE, BLOOD (POC)Eujxrvu4306/09/2025 12:28 PM EDT GLUCOSE, BLOOD (POC)Ovbhozr5206/09/2025 7:58 AM EDT GLUCOSE, BLOOD (POC)Fkrxstb2406/08/2025 8:31 PM EDT GLUCOSE, BLOOD (POC)Vosewbv0306/08/2025 5:32 PM EDT COMPLETE BLOOD QBFOSDVMO76/15/2025 1:32 PM EDT BASIC METABOLIC JRMESCATL52/15/2025 1:32 PM EDT GLUCOSE, BLOOD (POC)Qcrispu5606/08/2025 11:48 AM EDT GLUCOSE, BLOOD (POC)Offentu9606/08/2025 8:38 AM EDT GLUCOSE, BLOOD (POC)Nomymxq3906/07/2025 9:26 PM EDT GLUCOSE, BLOOD (POC)Lvzydrf6306/07/2025 5:22 PM EDT GLUCOSE, BLOOD (POC)Dvwvspe9906/07/2025 4:08 PM EDT GLUCOSE, BLOOD (POC)Tnadozh8306/07/2025 12:21 PM EDT GLUCOSE, BLOOD (POC)Ioofaey0506/07/2025 7:33 AM EDT GLUCOSE, BLOOD (POC)Tdyuylx4806/06/2025 8:34 PM EDT GLUCOSE, BLOOD (POC)Hzleboq1906/06/2025 6:11 PM EDT MAGNESIUM WKTBTCC09/13/2025 3:40 PM EDT COMPREHENSIVE METABOLIC ISHSUYNWJ60/13/2025 3:40 PM EDT COMPLETE BLOOD EXJFQTZIT71/13/2025 3:40 PM EDT GLUCOSE, BLOOD (POC)Ehlirdp8906/06/2025 8:12 AM EDT GLUCOSE, BLOOD (POC)Jemqzgd8406/05/2025 8:42 PM EDT GLUCOSE, BLOOD (POC)Colnzyw7606/05/2025 4:53 PM EDT GLUCOSE, BLOOD (POC)Vhifhdn4706/05/2025 12:46 PM EDT GLUCOSE, BLOOD (POC)Encfdni3306/05/2025 9:21 AM EDT BASIC METABOLIC NXYLIQydmtil58/12/2025 4:25 AM EDT MRI LUMBAR SPINE WO/W YONIQUMXQ87/11/2025 11:56 PM EDT MRI THORACIC SPINE WO/W RCMQDRRRE24/11/2025 11:56 PM EDT URINE CKEQXIVOYOU95/11/2025 8:30 PM EDT URINALYSIS (WITH MICROSCOPIC) WITH CULTURE IF PGZVHTNXBKXAF90/11/2025 8:30 PM EDT BACTERIAL CULTURE, VWSHSINLN56/11/2025 8:18 PM EDT BACTERIAL CULTURE, FLEPVZMIA10/11/2025 8:18 PM EDT XR THORACIC GENERAL 3V AP/LAT/UKGGGSKVBNWE92/11/2025 7:23 PM EDT C-REACTIVE PROTEIN (CRP)STAT Add-on06/04/2025 7:15 PM EDT CBC + TVLMKQWS35/11/2025 7:15 PM EDT BASIC METABOLIC LHUBSZXCJ06/11/2025 7:[address] LUMBAR SPINE WO MTZPYFJWY65/10/2025 2:[address] FLANK WO DUJENMIWI49/10/2025 2:11 PM EDT URINE EYBHAFBXOBF70/10/2025 12:48 PM EDT URINALYSIS (WITH MICROSCOPIC) WITH CULTURE IF XXMYZFQWOGYHC98/10/2025 12:48 PM EDT HCG QUAL TOIZQW57 12:48 PM EDT BACTERIAL CULTURE AND GRAM STAIN, ABSCESS AND WOUND (AEROBIC CULTURE)STAT 05/20/2025 9:24 PM EDT US CHEST WALL/SOFT GSTIDABNXY20/26/2025 8:17 PM EDT COMPREHENSIVE METABOLIC DZUBGEGKY89/26/2025 6:53 PM EDT CBC + QVTUFOHP73/26/2025 6:53 PM EDT SEPSIS LACTATE W/ REFLEX (INITIAL)STAT05/20/2025 6:53 PM EDT GLUCOSE, BLOOD (POC)Fchmcwo6005/07/2025 12:32 PM EDT GLUCOSE, BLOOD (POC)Wnendxr8605/07/2025 8:33 AM EDT COMPLETE BLOOD CQVSCFivokyu82/13/2025 5:50 AM EDT BASIC METABOLIC ZTOUHBzykotc64/13/2025 5:50 AM EDT GLUCOSE, BLOOD (POC)Siwocly1505/06/2025 10:55 PM EDT GLUCOSE, BLOOD (POC)Tmsdrnz5305/06/2025 12:38 PM EDT GLUCOSE, BLOOD (POC)Cabofyn8605/06/2025 9:32 AM EDT HEMOGLOBIN M7OJhycypq28/12/2025 5:23 AM EDT COMPLETE BLOOD QYPHNUefammv83/12/2025 5:23 AM EDT BASIC METABOLIC DFGPCKunorfe18/12/2025 5:23 AM EDT GLUCOSE, BLOOD (POC)Flgcbef2205/05/2025 8:09 PM EDT GLUCOSE, BLOOD (POC)Dilkeah8805/05/2025 5:26 PM EDT MEUVDLJAKBETBJ73/11/2025 4:27 PM EDT GLUCOSE, BLOOD (POC)Oucdmlg5905/05/2025 12:33 PM EDT GLUCOSE, BLOOD (POC)Lbkhkxz7705/05/2025 8:08 AM EDT COMPLETE BLOOD IMROVPjlfrpz15/11/2025 5:37 AM EDT BASIC METABOLIC FFTNMKabzedl52/11/2025 5:37 AM EDT GLUCOSE, BLOOD (POC)Didymed9405/04/2025 9:13 PM EDT GLUCOSE, BLOOD (POC)Ljmpfeo3405/04/2025 4:38 PM EDT JWAYVVLGKZYebia65/10/2025 1:02 PM EDT GLUCOSE, BLOOD (POC)Kqfsply9305/04/2025 11:51 AM EDT GLUCOSE, BLOOD (POC)Pvvlugr7005/04/2025 8:10 AM EDT COMPLETE BLOOD KNXUHZeufkqj94/10/2025 5:02 AM EDT BASIC METABOLIC NOMTTDwjuslh00/10/2025 5:02 AM EDT GLUCOSE, BLOOD (POC)Cccpiiq6105/03/2025 9:29 PM EDT GLUCOSE, BLOOD (POC)Eurtynl6905/03/2025 4:45 PM EDT GLUCOSE, BLOOD (POC)Yqwzuso3005/03/2025 11:42 AM EDT GJULUVJGJHUgyjv04/09/2025 10:07 AM EDT GLUCOSE, BLOOD (POC)Avjrvxu3205/03/2025 9:55 AM EDT GLUCOSE, BLOOD (POC)Djbztyu5505/03/2025 8:59 AM EDT BACTERIAL CULTURE, INTRAVASCULAR CATHETER SHUIflejdu93/09/2025 8:13 AM EDT BACTERIAL CULTURE AND GRAM STAIN, ABSCESS AND WOUND (AEROBIC CULTURE)Routine 05/03/2025 7:59 AM EDT Infection of venous access port, sequela BACTERIAL CULTURE, TISSUE AND WOUND, HMZZIZEEVTsihtxp88/09/2025 7:59 AM EDT Infection of venous access port, sequela YDCATXUKKKDhtzkpl85/09/2025 7:55 AM EDT RMVL ALEX CVC W/O SUBQ PORT/PMP05/03/2025 7:44 AM EDT Infection of venous access port, sequela GLUCOSE, BLOOD (POC)Shxxomf3405/03/2025 6:52 AM EDT COMPLETE BLOOD PLJRSUdeeulb35/09/2025 5:10 AM EDT BASIC METABOLIC BGGQDMaxvomz11/09/2025 5:10 AM EDT GLUCOSE, BLOOD (POC)Agjghza6205/02/2025 8:27 PM EDT GLUCOSE, BLOOD (POC)Exmlify2405/02/2025 5:31 PM EDT GLUCOSE, BLOOD (POC)Zjzrajs7705/02/2025 12:27 PM EDT COMPLETE BLOOD CODWBEqviqtc32/08/2025 8:04 AM EDT BASIC METABOLIC RDOUUEeygbhx13/08/2025 8:04 AM EDT GLUCOSE, BLOOD (POC)Mbttdia8905/02/2025 7:53 AM EDT GLUCOSE, BLOOD (POC)Ryyusug0005/02/2025 2:27 AM EDT URINALYSIS (WITH MICROSCOPIC) WITH CULTURE IF GPYKOQNRWGBAB17/07/2025 7:[address] CHEST W DODBMDPFZ90/07/2025 7:38 PM EDT BACTERIAL CULTURE, BKGCJUXNW64/07/2025 7:04 PM EDT POTASSIUM ESQIRQL6005/01/2025 6:40 PM EDT HEPATIC FUNCTION GWDDNUE2305/01/2025 6:40 PM EDT BACTERIAL CULTURE, QEEICLFQY17/07/2025 6:27 PM EDT BETA HCG, QUANTITATIVE FOR LIEHEO3805/01/2025 6:27 PM EDT CBC + EMREKJXX70/07/2025 6:27 PM EDT SEPSIS LACTATE W/ REFLEX (INITIAL)STAT05/01/2025 6:27 PM EDT MAGNESIUM PTSESLR4105/01/2025 6:00 PM EDT COMPREHENSIVE METABOLIC QQIACZWRM10/07/2025 6:00 PM EDT IR PORTOCATH OQHBOHKBAEbuyhap05/05/2025 1:18 PM EDT Systemic lupus erythematosus, unspecified SLE type, unspecified organ involvement status (HCC) INSJ TUNNELED CTR VAD W/SUBQ PORT AGE 5 YR/>04/29/2025 11:29 AM EDT Systemic lupus erythematosus, unspecified SLE type, unspecified organ involvement status (HCC) VASCULAR ACCESS TEAM US GUIDED PERIPHERAL IV QHKEIZIWRQaxgymc02/05/2025 10:32 AM EDT PROTHROMBIN IXCUITRL17/05/2025 10:32 AM EDT ALBUMIN/CREATININE RATIO, RSDUXVkdchrn31/04/2025 11:35 AM EDT Type 2 diabetes mellitus with hyperglycemia, without long-term current use of insulin (HCC) HYDROXYPROGESTERONE-42Hcwbdqr21/04/2025 11:32 AM EDT PCOS (polycystic ovarian syndrome) Type 2 diabetes mellitus with hyperglycemia, without long-term current use of insulin (HCC) ANDROSTENEDIONE MWVNfqjoep24/04/2025 11:32 AM EDT PCOS (polycystic ovarian syndrome) Type 2 diabetes mellitus with hyperglycemia, without long-term current use of insulin (HCC) TESTOSTERONE, TOTAL, BY MS (ADULT FEMALES, CHILDREN, OR INDIVIDUALS ON TESTOSTERONE-SUPPRESSING HORMONE THERAPY)Kanadnr6304/28/2025 11:32 AM EDT PCOS (polycystic ovarian syndrome) Type 2 diabetes mellitus with hyperglycemia, without long-term current use of insulin (HCC) DHEA-S VRSKdueask78/04/2025 11:32 AM EDT PCOS (polycystic ovarian syndrome) Type 2 diabetes mellitus with hyperglycemia, without long-term current use of insulin (HCC) INSULIN ANTIBODY IJGAtllqke28/04/2025 11:32 AM EDT Type 2 diabetes mellitus with hyperglycemia, without long-term current use of insulin (HCC) INSULINOMA ASSOCIATED ANTIBODY 7Gpdqrss03/04/2025 11:32 AM EDT Type 2 diabetes mellitus with hyperglycemia, without long-term current use of insulin (HCC) ZINC TRANSPORTER 8 MIVCLVGOMeqqtjp38/04/2025 11:32 AM EDT Type 2 diabetes mellitus with hyperglycemia, without long-term current use of insulin (HCC) ISLET CELL JYVquiaka02/04/2025 11:32 AM EDT Type 2 diabetes mellitus with hyperglycemia, without long-term current use of insulin (HCC) TSH SDOXhdtvir11/04/2025 11:32 AM EDT PCOS (polycystic ovarian syndrome) Type 2 diabetes mellitus with hyperglycemia, without long-term current use of insulin (HCC) GLUTAMIC AC DECARBOXYLASE NXUucfumu72/04/2025 11:32 AM EDT Type 2 diabetes mellitus with hyperglycemia, without long-term current use of insulin (HCC) GLUCOSE FASTING TRAMiuptta41/04/2025 11:32 AM EDT Type 2 diabetes mellitus with hyperglycemia, without long-term current use of insulin (HCC) C-PEPTIDE MVAJqcolit21/04/2025 11:32 AM EDT Type 2 diabetes mellitus with hyperglycemia, without long-term current use of insulin (HCC) LIPID PANEL, WBBFELSNlhqtqj12/04/2025 11:32 AM EDT Type 2 diabetes mellitus with hyperglycemia, without long-term current use of insulin (HCC) HEMOGLOBIN A1C (POC)Pfheamq1604/27/2025 1:41 PM EDT PROTHROMBIN KJGNYSNU07/22/2025 10:56 AM EDT Systemic lupus erythematosus, unspecified SLE type, unspecified organ involvement status (HCC) ENDOMETRIOSIS U/S ZIISdlibyp28/21/2025 12:55 PM EDT Pelvic pain in female HIGH RISK HUMAN PAPILLOMA VIRUS (HPV), PCR FOR DETECTION AND GENOTYPINGRoutine 04/13/2025 10:36 AM EDT Screening for cervical cancer BACTERIAL VAGINOSIS XTUXSysandn70/20/2025 10:36 AM EDT Vaginal irritation RICO/TRICHOMONAS LDCHSorvdnu12/20/2025 10:36 AM EDT Vaginal irritation GONORRHEA/CHLAMYDIA ODMHVpjaqrz89/20/2025 10:36 AM EDT Screening examination for STI PAP RAXNSsfmykk22/20/2025 10:36 AM EDT Screening for cervical cancer PROTEIN CREATININE KZCOPWfhxfif83/15/2025 2:52 PM EDT Systemic lupus erythematosus, unspecified SLE type, unspecified organ involvement status (HCC) URINALYSIS, WITH LZHHYQKUPHAQiyzlku66/15/2025 2:52 PM EDT Systemic lupus erythematosus, unspecified SLE type, unspecified organ involvement status (HCC) DNA ANTIBODY DS ZTQSrzvyus27/15/2025 2:51 PM EDT Systemic lupus erythematosus, unspecified SLE type, unspecified organ involvement status (HCC) C4 COMPLEMENT IRHCmkmvpb97/15/2025 2:51 PM EDT Systemic lupus erythematosus, unspecified SLE type, unspecified organ involvement status (HCC) C3 COMPLEMENT NRRYbgwzbf20/15/2025 2:51 PM EDT Systemic lupus erythematosus, unspecified SLE type, unspecified organ involvement status (HCC) SEDIMENTATION CUIMTelapal30/15/2025 2:51 PM EDT Systemic lupus erythematosus, unspecified SLE type, unspecified organ involvement status (HCC) C-REACTIVE PROTEIN (CRP)Ynlxlfe5004/08/2025 2:51 PM EDT Systemic lupus erythematosus, unspecified SLE type, unspecified organ involvement status (HCC) COMPREHENSIVE METABOLIC XLJYWRbieqtz40/15/2025 2:51 PM EDT Systemic lupus erythematosus, unspecified SLE type, unspecified organ involvement status (HCC) CBC + AQATCkytggx95/15/2025 2:51 PM EDT Systemic lupus erythematosus, unspecified SLE type, unspecified organ involvement status (HCC) HIGH SENSITIVITY TROPONIN TSTAT04/07/2025 1:22 AM EDT FHJEzvxffd46/14/2025 1:20 AM EDT ECG XWOVXJWNALIV65/14/2025 1:13 AM EDTHIGH SENSITIVITY TROPONIN T (INITIAL)STAT 04/06/2025 10:29 PM EDT COMPREHENSIVE METABOLIC MGROOLHCO65/13/2025 10:29 PM EDT CBC + ZTJJWYQL34/13/2025 10:29 PM EDT US DVT LOWER MRHLRJSUD26/13/2025 8:16 PM EDT XR CHEST 2V FRONTAL/PYFZSIE8004/06/2025 6:18 PM EDT ECG SEPZFTRX85/13/2025 6:06 PM EDT HEPATITIS C ANTIBODY IA WITH YLXPNLREXWAYVugkyli24/19/2025 8:41 AM EDT Systemic lupus erythematosus, unspecified SLE type, unspecified organ involvement status (HCC) from Last 3 Months or Most Recently Relevant to Health Maintenance Results * COVID & INFLUENZA A/B & RSV PCR, ROUTINE (06/29/2025 1:01 PM EST)Component ValueRef RangeTest MethodAnalysis TimePerformed AtPathologist Signature SARS-CoV-2 (Agent of COVID-19) RNANot detectedSee comment [facility] 06/29/2025 8:[facility]Influenza A RNANot detectedNot Detected [facility] 06/29/2025 8:25 PM [facility] LABInfluenza B RNANot detectedNot Detected [facility] 06/29/2025 8:25 PM [facility] LABRespiratory syncytial virus (RSV) RNANot detectedNot Detected [facility] 06/29/2025 8:25 PM [facility] LABSpecimen (Source)Anatomical Location / LateralityCollection Method / VolumeCollection TimeReceived TimeSwab NASOPHARYNGEAL SWAB / UnknownNon Blood / Djdfhyo1806/29/2025 1:01 PM EST06/29/2025 4:35 PM EST Narrative [facility] - 06/29/2025 8:25 PM EST Reference Range (the expected result in uninfected individuals): Not detected Authorizing ProviderResult TypeResult StatusJason PATELICROBIOLOGYFinal ResultPerforming OrganizationAddressCity/State/ZIP CodePhone Number [facility] * STREP A MOLECULAR (POC) (06/29/2025 12:51 PM EST)ComponentValueRef RangeTest MethodAnalysis TimePerformed AtPathologist SignatureStrep A (POCT)Negative NegativeC[facility] POINT OF CAREProcedural ControlValidCLEVELAND CL[facility] POINT OF CARESpecimen (Source)Anatomical Location / LateralityCollection Method / VolumeCollection TimeReceived TimeSwabOROPHARYNGEAL / Unknown 06/29/2025 12:51 PM EST Narrative Authorizing ProviderResult TypeResult StatusJason CARDENASCMICROBIOLOGYFinal ResultPerforming OrganizationAddressCity/State/ZIP CodePhone Number [facility] POINT OF CARE * HIGH SENSITIVITY TROPONIN T (THIRD) 3 HRS AFTER INITIAL (06/23/2025 3:07 AM EDT)ComponentValueRef RangeTest MethodAnalysis TimePerformed AtPathologist SignatureTNT High Sensitivity7<12 ng/L1 3:29 AM EDTLUTHERAN LABORATORYSpecimen (Source)Anatomical Location / LateralityCollection Method / VolumeCollection TimeReceived TimeBloodBLOOD SPECIMEN / UnknownVenipuncture / Menvqot4606/23/2025 3:07 AM EDT1 3:09 AM EDT Narrative Authorizing ProviderResult TypeResult StatusEliot JONES-CLABORATORYFinal ResultPerforming OrganizationAddressty/State/ZIP CodePhone Number Matomy Money [address] [place] [address], * (ABNORMAL) HIGH SENSITIVITY TROPONIN T (SECOND) (06/23/2025 12:48 AM EDT) ComponentValueRef RangeTest MethodAnalysis TimePerformed AtPathologist SignatureTNT High Yqeoqhocths19(H)<12 ng/L1 1:12 AM EDTLUTHERAN LABORATORYSpecimen (Source)Anatomical Location / LateralityCollection Method / VolumeCollection TimeReceived TimeBloodBLOOD SPECIMEN / UnknownVenipuncture / Evtbfzo9006/23/2025 12:48 AM EDT1 12:53 AM EDT Narrative Authorizing ProviderResult TypeResult StatusEliot JONES-CLABORATORYFinal ResultPerforming OrganizationAddHoly Redeemer Health Systemty/State/ZIP [place] [address], * (ABNORMAL) MAGNESIUM (06/22/2025 11:36 PM EDT) Only the most recent of3 resultswithin the time period is included. ComponentValueRef RangeTest MethodAnalysis TimePerformed AtPathologist Signature Magnesium1.6(L)1.7 - 2.3 mg/dL06/23/2025 12:10 AM EDTLUTHERAN LABORATORYSpecimen (Source)Anatomical Location / LateralityCollection Method / VolumeCollection TimeReceived TimeBloodBLOOD SPECIMEN / UnknownVenipuncture / Pifgwrr4006/22/2025 11:36 PM EDT1 11:38 PM EDT Narrative Authorizing ProviderResult TypeResult StatusNiclima memorial hospitalkinjal Foster DOLABORATORYFinal ResultPerforming OrganizationAddressCity/State/ZIP CodePhone Number BRIEN GALLEGOS [address] [place] [address], * CT THORACIC SPINE W RECON DATA (06/22/2025 11:29 PM EDT)Anatomical Region LateralityModalityT-spineComputed TomographySpecimen (Source)Anatomical Location / LateralityCollection Method / VolumeCollection TimeReceived Time 06/22/2025 11:29 PM EDT Impressions 06/23/2025 1:21 AM EDT IMPRESSION: No acute fracture or malalignment of the thoracic spine. Please see dedicated CT chest for further evaluation of any associated relevant intrathoracic soft tissue findings. Nursing Executive: PSCB ?? Transcribe Date/Time: Jun 23 2025 ??1:05A [...] provided soft tissue reformats Procedure Note Provider, [facility] [place] - 06/23/2025 * * *Final Report* * [...] any associated relevant intrathoracic soft tissue findings. Nursing Executive: JACINDA Transcribe Date/Time: Jun 23 2025 1:05A Dictated by : BÁRBARA NORTON MD This examination was interpreted and the report reviewed and electronically signed by: BÁRBARA NORTON MD on Jun 23 2025 1:19AM EST Authorizing ProviderResult TypeResult StatusNiclima memorial hospitalkinjal Foster DOCT-PAMAFinal Result * CT CHEST W IVCON (06/22/2025 11:29 PM EDT)Anatomical RegionLateralityModality ChestComputed TomographySpecimen (Source)Anatomical Location / Laterality Collection Method / VolumeCollection TimeReceived Time06/22/2025 11:29 PM EDT Impressions 06/23/2025 1:19 AM EDT IMPRESSION: 1. ??No CT evidence of acute abnormality. 2. ??1.1 cm left thyroid nodule. ??A follow-up thyroid ultrasound could be performed to further evaluate at clinical discretion. 3. ??Details above. Nursing Executive: PSCB ?? Transcribe Date/Time: Jun 23 2025 [...] images: No additional findings. Procedure Note Provider, [facility] [place] - 06/23/2025 * * *Final Report* * [...] evaluate at clinical discretion. 3. Details above. Nursing Executive: JACINDA Transcribe Date/Time: Jun 23 2025 1:08A Dictated by : BERNICE MARTINEZ MD This examination was interpreted and the report reviewed and electronically signed by: BERNICE MARTINEZ MD on Jun 23 2025 1:17AM EST Authorizing ProviderResult TypeResult StatusEliot JONES-CCT-PAMAFinal Result * HCG QUALITATIVE (06/22/2025 10:19 PM EDT)ComponentValueRef RangeTest Method Analysis TimePerformed AtPathologist SignatureHCG, Qualitative BloodNegative Ueytwzzd14/29/2025 10:37 PM EDTLUTHERAN LABORATORYSpecimen (Source)Anatomical Location / LateralityCollection Method / VolumeCollection TimeReceived Time BloodBLOOD SPECIMEN / UnknownVenipuncture / Nwouuhp2006/22/2025 10:19 PM EDT 06/22/2025 10:24 PM EDT Narrative Authorizing ProviderResult TypeResult StatusJuliocesar Foster W[facility]OM AREA HOSPITALABORATORYFinal ResultPerforming OrganizationAddressCity/State/ZIP CodePhone Number Matomy Money [address] [place] [address], * HIGH SENSITIVITY TROPONIN T (INITIAL) (06/22/2025 10:05 PM EDT) Only the most recent of2 resultswithin the time period is included. ComponentValueRef RangeTest MethodAnalysis TimePerformed AtPathologist Signature DORINA High Sensitivity6<12 ng/L1 10:29 PM EDTLUTHERAN LABORATORYSpecimen (Source)Anatomical Location / LateralityCollection Method / VolumeCollection TimeReceived TimeBloodBLOOD SPECIMEN / UnknownVenipuncture / Mxstbxf2406/22/2025 10:05 PM EDT1 10:07 PM EDT Narrative Authorizing ProviderResult TypeResult StatusEliot CARDENASCLABORATORYFinal ResultPerforming OrganizationAddressCity/State/ZIP CodePhone Number Matomy Money [address] [place] [address], * (ABNORMAL) COMPREHENSIVE METABOLIC PANEL (06/22/2025 10:05 PM EDT) Only the most recent of6 resultswithin the time period is included. ComponentValueRef RangeTest MethodAnalysis TimePerformed AtPathologist Signature Protein, Total7.36.3 - 8.0 g/dL06/22/2025 10:44 PM EDTLUTHERAN LABORATORYAlbumin 4.23.9 - 4.9 g/dL06/22/2025 10:44 PM EDTLUTHERAN LABORATORYCalcium, Total9.38.5 - 10.2 mg/dL06/22/2025 10:44 PM EDTLUTHERAN LABORATORYBilirubin, Total0.30.2 - 1.3 mg/dL06/22/2025 10:44 PM EDTLUTHERAN LABORATORYAlkaline Kfyioxkyqns7960 - 123 U/L1 10:44 PM EDTLUTHERAN ZDDBEZGFIMLME59/29/2025 10:44 PM EDT CA[facility]AISM LABORATORYComment:Unable to assay due to interference from hemolysis. Suggest reorder as clinically indicated.UJD885 - 38 U/L1 10:44 PM EDT CA[facility]ISM XYDBZBTAJOPjkidpp564(H)74 - 99 mg/dL06/22/2025 10:44 PM EDTLUTHERAN LABORATORYComment: The [place] Diabetes [employer] (ADA) provides guidance for cutoff [...] Standards of Medical Care in Diabetes 2016, [place] [employer]. Diabetes Care. 2016.39(Suppl 1). EBW772 - 21 mg/dL06/22/2025 10:44 PM EDTLUTHERAN LABORATORYCreatinine0.670.58 - 0.96 mg/dL06/22/2025 10:44 PM EDTLUTHERAN DWQVQHFLCAKxqgxr245262 - 144 mmol/L 06/22/2025 10:44 PM EDTLUTHERAN LABORATORYPotassium3.73.7 - 5.1 mmol/L1 10:44 PM EDTLUTHERAN DFFSASLEVKKeupqzmb25246 - 107 mmol/L1 10:44 PM EDTLUTHERAN BHQFFNJKTDSL812(L)22 - 30 mmol/L1 10:44 PM EDTLUTHERAN LABORATORYAnion Pgc245 - 15 mmol/L1 10:44 PM EDTLUTHERAN LABORATORY Estimated Glomerular Filtration Bddo254>=60 mL/min/1.73m 06/22/2025 10:44 PM EDTLUTHERAN LABORATORYComment:Estimated Glomerular [...] VolumeCollection TimeReceived TimeBloodBLOOD SPECIMEN / UnknownVenipuncture / Xhngyxz1806/22/2025 10:05 PM EDT1 10:07 PM EDT Narrative Authorizing ProviderResult TypeResult StatusEliot JONES-CLABORATORYFinal ResultPerforming OrganizationAddressCity/State/ZIP CodePhone Number CAODAISM [phone] [place] [address], * COMPLETE BLOOD COUNT (06/22/2025 10:05 PM EDT) Only the most recent of10 resultswithin the time period is included. ComponentValueRef RangeTest MethodAnalysis TimePerformed AtPathologist Signature WBC9.913.70 - 11.00 k/uL06/22/2025 10:10 PM EDTLUTHERAN LABORATORYRBC4.793.90 - 5.20 m/uL06/22/2025 10:10 PM EDTLUTHERAN RAWTEASJAKIhbbnqzvwx26.111.5 - 15.5 g/dL06/22/2025 10:10 PM EDTLUTHERAN ZFAHJADFDMXkjfrljdjh36.236.0 - 46.0 % 06/22/2025 10:10 PM EDTLUTHERAN NQOXELTMECTRJ12.080.0 - 100.0 fL06/22/2025 10:10 PM EDTLUTHERAN VTHTYHCYKIYDB74.426.0 - 34.0 pg06/22/2025 10:10 PM EDTLUTHERAN MAUICPERIGVDZH17.230.5 - 36.0 g/dL06/22/2025 10:10 PM EDTLUTHERAN LABORATORY RDW-CV12.511.5 - 15.0 %06/22/2025 10:10 PM EDTLUTHERAN LABORATORYPlatelet Count 071280 - 400 k/uL06/22/2025 10:10 PM EDTLUTHERAN OTIALKXMXLGIW54.59.0 - 12.7 fL 06/22/2025 10:10 PM EDTLUTHERAN LABORATORYAbsolute nRBC<0.01<0.01 k/uL06/22/2025 10:10 PM EDTLUTHERAN LABORATORYSpecimen (Source)Anatomical Location / LateralityCollection Method / VolumeCollection TimeReceived TimeBloodBLOOD SPECIMEN / UnknownVenipuncture / Mefpolp6506/22/2025 10:05 PM EDT1 10:07 PM EDT Narrative Authorizing ProviderResult TypeResult StatusAnddrake JONES-CLABORATORYFinal ResultPerforming OrganizationAddressCity/State/[facility] CodePhone Number CAODAISM [facility] [address] [place] [address], * XR RIBS/CHEST 3V AP RIB/OBLS/CXR LEFT (06/22/2025 8:09 PM EDT)Anatomical RegionLateralityModalityRibRadiographic ImagingSpecimen (Source)Anatomical Location / LateralityCollection Method / VolumeCollection TimeReceived Time 06/22/2025 8:09 PM EDT Impressions 06/22/2025 9:02 PM EDT IMPRESSION: No acute abnormality Nursing Executive: JACINDA ?? Transcribe Date/Time: Jun 22 2025 [...] the mid thoracic spine. Procedure Note Provider, [facility] - 06/22/2025 * * *Final Report* [...] thoracic spine. IMPRESSION IMPRESSION: No acute abnormality Nursing Executive: PSCDhruv Transcribe Date/Time: Jun 22 2025 8:59P Dictated by : BAUTISTA CHIN MD This examination was interpreted and the report reviewed and electronically signed by: BAUTISTA HCIN MD on Jun 22 2025 9:00PM EST Authorizing ProviderResult TypeResult StatusMichael Edward Pepera MDRAD-PAMA Final Result * EKG (06/22/2025 7:53 PM EDT)ComponentValueRef RangeTest MethodAnalysis Time Performed AtPathologist SignatureVentricular Quin67MDRRGDRTIOY CARDIOLOGY Atrial Mfly76UOVQIUKOIWE CARDIOLOGYP-R Pmpmlhna136wiTZYNZUIC CARDIOLOGYQRS Rkbnmqxl57wtGNEWZUBB CARDIOLOGYQT Cktthzpm627xoXMXNTATE CARDIOLOGYQTC Calculation (álvaro)410msLUTHERAN CARDIOLOGYCalculated P Npot45jbwdibxSOABPGQT CARDIOLOGYCalculated R Ooro73bbihgvlEGFVUWHU CARDIOLOGYCalculated T Axis51 degreesLUTHERAN CARDIOLOGYSpecimen (Source)Anatomical Location / Laterality Collection Method / VolumeCollection TimeReceived Time06/22/2025 7:53 PM EDT Impressions [facility] - 06/22/2025 7:58 PM EDT Sinus rhythm Borderline Q waves in inferior leads ST elev, probable normal early repol pattern unchanged from prior EKG April 07, 2025 Borderline ECG Confirmed by MD TRIMBLE BRYAN ([id number]) on 06/22/2025 7:57:56 PM Narrative [facility] - 06/22/2025 7:58 PM EDT NAME : REBEKAH THOMPSON PID : [id number] : 2000 Gender : Female Race : ORD : Procedure Date : Jun 22 2025 19:53:37 Edit Date : Jun 22 2025 19:58:00 Diagnosis: Sinus rhythm Borderline Q waves in inferior leads ST elev, probable normal early repol pattern unchanged from prior EKG April 07, 2025 Borderline ECG Confirmed by MD TRIMBLE BRYAN ([id number]) on 06/22/2025 7:57:56 PM Test Reason : Location : 502 : LUED ??ITA01 Overread By : MD TRIMBLE BRYAN Edited By : MD TRIMBLE BRYAN Referred By : , Acquired by : [id number], Authorizing ProviderResult TypeResult StatusCcf ProviderCARDIOLOGY_MEFinal ResultPerforming OrganizationAddressCity/State/ZIP CodePhone Number [facility] * CT BRAIN WO IVCON (06/21/2025 9:54 AM EDT)Anatomical RegionLateralityModality HeadComputed TomographySpecimen (Source)Anatomical Location / Laterality Collection Method / VolumeCollection TimeReceived Time06/21/2025 9:54 AM EDT Impressions 06/21/2025 10:32 AM EDT IMPRESSION: No acute intracranial abnormality. Nursing Executive: JACINDA ?? Transcribe Date/Time: Jun 21 2025 10:23A Dictated by : SANA HAGEN MD This examination was interpreted and the report reviewed and electronically signed by: SANA HAGEN MD on Jun 21 2025 10:30AM ??EST Narrative 06/21/2025 10:32 AM EDT * * *Final Report* * * DATE OF EXAM: Jun 21 2025 ??9:54AM ?? FVC ?? 0504 ??- ??CT BRAIN WO IVCON ??/ PROCEDURE REASON: Head trauma, moderate-severe ? * * * * Physician Interpretation * * * * EXAMINATION: CT BRAIN WO IVCON CLINICAL HISTORY: Fall, hit right frontoparietal area TECHNIQUE: ??Serial axial images without IV contrast were obtained from the vertex to the foramen magnum. MQ: ??CTBWO_3 CT Radiation dose: Integrated Dose-Length Product (DLP) for this visit = ?? 746 ??mGy*cm CT Dose Reduction Employed: Automated exposure control (AEC) COMPARISON: None. RESULT: Post-operative change: None. Acute change: No evidence of an acute contusion or other acute parenchymal process. Hemorrhage: No evidence of acute intracranial hemorrhage. ECASS hemorrhagic transformation score: Not Applicable Mass Lesion / Mass Effect: There is no evidence of an intracranial mass or extraaxial fluid collection. ??No significant mass effect. Chronic change: None apparent. Parenchyma: There is no significant volume loss. Ventricles: The ventricles are within normal limits of size and configuration for age. Other: The visualized paranasal sinuses are grossly clear. No significant soft tissue swelling. No calvarial fracture. Localizer images: No significant findings. Procedure Note Provider, [facility] [place] - 06/21/2025 * * *Final Report* * * DATE OF EXAM: Jun 21 2025 9:54AM FVC 0504 - CT BRAIN WO IVCON / PROCEDURE REASON: Head trauma, moderate-severe * * * * Physician Interpretation * * * * EXAMINATION: CT BRAIN WO IVCON CLINICAL HISTORY: Fall, hit right frontoparietal area TECHNIQUE: Serial axial images without IV contrast were obtained from the vertex to the foramen magnum. MQ: CTBWO_3 CT Radiation dose: Integrated Dose-Length Product (DLP) for this visit = 746 mGy*cm CT Dose Reduction Employed: Automated exposure control (AEC) COMPARISON: None. RESULT: Post-operative change: None. Acute change: No evidence of an acute contusion or other acute parenchymal process. Hemorrhage: No evidence of acute intracranial hemorrhage. ECASS hemorrhagic transformation score: Not Applicable Mass Lesion / Mass Effect: There is no evidence of an intracranial mass or extraaxial fluid collection. No significant mass effect. Chronic change: None apparent. Parenchyma: There is no significant volume loss. Ventricles: The ventricles are within normal limits of size and configuration for age. Other: The visualized paranasal sinuses are grossly clear. No significant soft tissue swelling. No calvarial fracture. Localizer images: No significant findings. IMPRESSION IMPRESSION: No acute intracranial abnormality. Nursing Executive: JACINDA Transcribe Date/Time: Jun 21 2025 10:23A Dictated by : SANA HAGEN MD This examination was interpreted and the report reviewed and electronically signed by: SANA HAGEN MD on Jun 21 2025 10:30AM EST Authorizing ProviderResult TypeResult StatusCollege Hospital [facility] DOCT-PAMAFinal Result * XR LUMBAR GENERAL 3V AP/LAT/L5-S1 (06/21/2025 9:49 AM EDT)Anatomical Region LateralityModalityL-spineRadiographic ImagingSpecimen (Source)Anatomical Location / LateralityCollection Method / VolumeCollection TimeReceived Time 06/21/2025 9:49 AM EDT Impressions 06/21/2025 10:20 AM EDT IMPRESSION: NO ACUTE BONY PROCESS. NO SIGNIFICANT INTERVAL CHANGE SINCE 08/30/2021. Nursing Executive: JACINDA ?? Transcribe Date/Time: Jun 21 2025 10:16A Dictated by : DEZ CARPENTER MD This examination was interpreted and the report reviewed and electronically signed by: DEZ CARPENTER MD on Jun 21 2025 10:18AM ??EST Narrative 06/21/2025 10:20 AM EDT * * *Final Report* * * DATE OF EXAM: Jun 21 2025 ??9:49AM ?? FVX ?? 5228 ??- ??XR LUMBAR 3V AP/LAT/L5-S1 ??/ PROCEDURE REASON: Back pain ? * * * * Physician Interpretation * * * * HISTORY: ??Back pain TECHNIQUE: Frontal, lateral and cone down (three) views of the lumbar spine were obtained. Three images are archived. COMPARISON: 08/30/2021 RESULT: Counting reference: ??Lumbosacral junction. ??For the purposes of this report, ??L4-5 is considered the level of the iliac crest and assume there are 5 lumbar-type vertebrae. ??Anatomic variant: ??None. There is normal lumbar lordosis. There is no acute fracture, dislocation or paraspinous soft tissue swelling. There is mild to moderate intervertebral disc space loss, endplate plate sclerosis and facet hypertrophy of the lower lumbar spine, at L4-5 and L5-S1, stable. Procedure Note Provider, [facility] [place] - 06/21/2025 * * *Final Report* * * DATE OF EXAM: Jun 21 2025 9:49AM FVX 5228 - XR LUMBAR 3V AP/LAT/L5-S1 / PROCEDURE REASON: Back pain * * * * Physician Interpretation * * * * HISTORY: Back pain TECHNIQUE: Frontal, lateral and cone down (three) views of the lumbar spine were obtained. Three images are archived. COMPARISON: 08/30/2021 RESULT: Counting reference: Lumbosacral junction. For the purposes of this report, L4-5 is considered the level of the iliac crest and assume there are 5 lumbar-type vertebrae. Anatomic variant: None. There is normal lumbar lordosis. There is no acute fracture, dislocation or paraspinous soft tissue swelling. There is mild to moderate intervertebral disc space loss, endplate plate sclerosis and facet hypertrophy of the lower lumbar spine, at L4-5 and L5-S1, stable. IMPRESSION IMPRESSION: NO ACUTE BONY PROCESS. NO SIGNIFICANT INTERVAL CHANGE SINCE 08/30/2021. Nursing Executive: PSCB Transcribe Date/Time: Jun 21 2025 10:16A Dictated by : DEZ CARPENTER MD This examination was interpreted and the report reviewed and electronically signed by: DEZ CARPENTER MD on Jun 21 2025 10:18AM EST Authorizing ProviderResult TypeResult StatusAnn Donya LOONEY-PAMAFinal Result * XR HIP GENERAL 3V PELV/AP/LAT RIGHT (06/21/2025 9:49 AM EDT)Anatomical Region LateralityModalityHipRadiographic ImagingSpecimen (Source)Anatomical Location / LateralityCollection Method / VolumeCollection TimeReceived Time06/21/2025 9:49 AM EDT Impressions 06/21/2025 10:18 AM EDT IMPRESSION: NO ACUTE BONY PROCESS. Nursing Executive: PSCB ?? Transcribe Date/Time: Jun 21 2025 10:15A Dictated by : DEZ CARPENTER MD This examination was interpreted and the report reviewed and electronically signed by: DEZ CARPENTER MD on Jun 21 2025 10:16AM ??EST Narrative 06/21/2025 10:18 AM EDT * * *Final Report* * * DATE OF EXAM: Jun 21 2025 ??9:49AM ?? FVX ?? 5352 ??- ??XR HIP 3V PELV+ AP/LAT RT ??/ PROCEDURE REASON: Hip pain, acute, fx suspected, initial exam ? * * * * Physician Interpretation * * * * HISTORY: pain TECHNIQUE: Frontal (one) view of the pelvis, and frontal and frogleg (two) views of the right hip were obtained. Three images were archived. COMPARISON: Pelvic and left hip x-rays dated 03/26/2021 RESULT: Pelvis: There is no acute fracture or dislocation. ??The sacroiliac and hip joints are maintained. ??The bony structures are intact. Right hip: There is no acute fracture or dislocation. ??The right hip is maintained. ??The bony structures are intact. Procedure Note Provider, [facility] [place] - 06/21/2025 * * *Final Report* * * DATE OF EXAM: Jun 21 2025 9:49AM FVX 5352 - XR HIP 3V PELV+ AP/LAT RT / PROCEDURE REASON: Hip pain, acute, fx suspected, initial exam * * * * Physician Interpretation * * * * HISTORY: pain TECHNIQUE: Frontal (one) view of the pelvis, and frontal and frogleg (two) views of the right hip were obtained. Three images were archived. COMPARISON: Pelvic and left hip x-rays dated 03/26/2021 RESULT: Pelvis: There is no acute fracture or dislocation. The sacroiliac and hip joints are maintained. The bony structures are intact. Right hip: There is no acute fracture or dislocation. The right hip is maintained. The bony structures are intact. IMPRESSION IMPRESSION: NO ACUTE BONY PROCESS. Nursing Executive: JACINDA Transcribe Date/Time: Jun 21 2025 10:15A Dictated by : DEZ CARPENTER MD This examination was interpreted and the report reviewed and electronically signed by: DEZ CARPENTER MD on Jun 21 2025 10:16AM EST Authorizing ProviderResult TypeResult StatusAnne Donya PONCE-PAMAFinal Result * XR ANKLE GENERAL 3V AP/LAT/OBL RIGHT (06/21/2025 9:49 AM EDT)Anatomical Region LateralityModalityAnkleRadiographic ImagingSpecimen (Source)Anatomical Location / LateralityCollection Method / VolumeCollection TimeReceived Time 06/21/2025 9:49 AM EDT Impressions 06/21/2025 10:05 AM EDT IMPRESSION: NO ACUTE BONY PROCESS. Nursing Executive: JACINDA ?? Transcribe Date/Time: Jun 21 2025 10:01A Dictated by : DEZ CARPENTER MD This examination was interpreted and the report reviewed and electronically signed by: DEZ CARPENTER MD on Jun 21 2025 10:03AM ??EST Narrative 06/21/2025 10:05 AM EDT * * *Final Report* * * DATE OF EXAM: Jun 21 2025 ??9:49AM ?? FVX ?? 5297 ??- ??XR ANKLE 3V AP/LAT/OBL RT ??/ PROCEDURE REASON: Fracture, ankle ? * * * * Physician Interpretation * * * * HISTORY: Pain TECHNIQUE: Frontal, oblique and lateral (three) views of the right ankle were obtained. ??Evaluation of the ankle mortise is somewhat limited due to positioning. RESULT: There is no acute fracture, dislocation or soft tissue swelling. ??No dislocation. Procedure Note Provider, [facility] - 06/21/2025 * * *Final Report* * * DATE OF EXAM: Jun 21 2025 9:49AM FVX 5297 - XR ANKLE 3V AP/LAT/OBL RT / PROCEDURE REASON: Fracture, ankle * * * * Physician Interpretation * * * * HISTORY: Pain TECHNIQUE: Frontal, oblique and lateral (three) views of the right ankle were obtained. Evaluation of the ankle mortise is somewhat limited due to positioning. RESULT: There is no acute fracture, dislocation or soft tissue swelling. No dislocation. IMPRESSION IMPRESSION: NO ACUTE BONY PROCESS. Nursing Executive: PSCB Transcribe Date/Time: Jun 21 2025 10:01A Dictated by : DEZ CARPENTER MD This examination was interpreted and the report reviewed and electronically signed by: DEZ CARPENTER MD on Jun 21 2025 10:03AM EST Authorizing ProviderResult TypeResult Adriana POTTERPAMAFinal Result * VISUAL FIELD 10-2 OU (BOTH EYES) (06/13/2025 10:26 AM EDT)Anatomical Region LateralityModalityOther Narrative 06/13/2025 2:40 PM EDT Date of Procedure 06/13/2025 Artificial Plastic Eye Maker Information Emergency Dispatcher: TRN Start time: 10:19 AM Stop time: 10:24 AM Reliability Right Eye Good. Left Eye Good. Interpretation Right Eye Depressed mean deviation. Left Eye Depressed mean deviation. Interval Change Right Eye Initial Left Eye Initial Authorizing ProviderResult TypeResult StatusDavid W [place] ODOPHTHALMOLOGY Final Result * OCT MACULA CIRRUS OU (BOTH EYES) (06/13/2025 9:29 AM EDT)Anatomical Region LateralityModalityOther Narrative 06/13/2025 2:40 PM EDT Date of Procedure 06/13/2025 Artificial Plastic Eye Maker Information Emergency Dispatcher: trn Start time: 9:05 AM Stop time: 9:10 AM OCT Macula Interpretation Right Eye Normal foveal contour. Left Eye Normal foveal contour. OCT Measurement Right Eye CURRICULUM COORDINATOR: 307 Left Eye CURRICULUM COORDINATOR: 309 Interval Change Right Eye Initial Left Eye Initial Authorizing ProviderResult TypeResult StatusDavid W [place] ODOPHTHALMOLOGY Final Result * (ABNORMAL) GLUCOSE, BLOOD (POC) (06/10/2025 12:28 PM EDT) Only the most recent of46 resultswithin the time period is included. ComponentValueRef RangeTest MethodAnalysis TimePerformed AtPathologist Signature Glucose, Point of Btyh795(A)74 - 99 mg/dLCentral HospitalComment: Location[facility], [address] [place], [place], [address] The Accu-Chek Inform II glucose meter has not been approved for testing on patients receiving intensive medical intervention or therapy and results from this point of care glucose test should not be used for patient management decisions in these cases. ??Inaccurate results may also occur from other interfering factors, such as N-acetylcysteine (blood concentrations of greater than 5mg/dL), galactose, extremes of hematocrit (<10 or >65), or high doses of ascorbic acid (vitamin C) greater than 3mg/dL. ??Consider alternate testing mechanisms (e.g. core lab, blood gas instrument) in the above situations. Specimen (Source)Anatomical Location / LateralityCollection Method / Volume Collection TimeReceived Time06/10/2025 12:28 PM EDT Narrative Authorizing ProviderResult TypeResult StatusHassan SaulCullman Regional Medical Center TESTINGFinal ResultPerforming OrganizationAddressCity/State/[facility] CodePhone Number [facility] POINT OF CARE [facility] [address] [place], [place] * (ABNORMAL) URINALYSIS, REFLEX MICROSCOPIC (06/09/2025 5:29 PM EDT)Component ValueRef RangeTest MethodAnalysis TimePerformed AtPathologist SignatureColor Light ExzvzoKttqvq57/16/2025 8:06 PM EDTFAIRVIEW LABORATORYClarityTurbid(A) Clear06/09/2025 8:06 PM EDTFAIRVIEW LABORATORYGlucose, UrineNegativeTrace, Hputfenm43/16/2025 8:06 PM EDTFAIRVIEW LABORATORYBilirubin, UrineNegative Zhpbktdd31/16/2025 8:06 PM EDTFAIRVIEW LABORATORYKetones, UrineNegative Negative, Trace06/09/2025 8:06 PM EDTFAIRVIEW LABORATORYSpecific [place], Ur 1.0171.005 - 1.8154106/09/2025 8:06 PM EDTFAIRVIEW LABORATORYHemoglobin/Blood,Ur NegativeNegative, Trace06/09/2025 8:06 PM EDTFAIRVIEW LABORATORYpH, Urine7.5 5.0 - 8.010 8:06 PM EDTFAIRVIEW LABORATORYProtein, UrineNegativeTrace, Yxidfgzc82/16/2025 8:06 PM EDTFAIRVIEW LABORATORYUrobilinogenNormalNormal 06/09/2025 8:06 PM [facility]TFW[facility] KRZTSBIYOCOgztqhkfViclkhmiPxxtbgnc00/16/2025 8:06 PM EDTFWILLIAMS HOSPITAL LABORATORYLeuk EsteraseNegativeNegative, 25 Rupesh/uL 06/09/2025 8:06 PM EDTFWILLIAMS HOSPITAL LABORATORYWBC, Urine0-5 /HPF0-5 /HPF06/09/2025 8:06 PM EDTFWILLIAMS HOSPITAL LABORATORYRBC, Urine0-3 /HPF0-3 /HPF06/09/2025 8:06 PM EDT [facility] LABORATORYSquamous Epithelial CellsFew/HPF06/09/2025 8:06 PM EDT [facility] LABORATORYSpecimen (Source)Anatomical Location / LateralityCollection Method / VolumeCollection TimeReceived TimeUrineURINE SPECIMEN / UnknownNon Blood / Dzhvgfs1106/09/2025 5:29 PM EDT1 7:46 PM EDT Narrative Authorizing ProviderResult TypeResult StatusCarmen R Glassco BISQUE GRADER.CNPLABORATORY Final ResultPerforming OrganizationAddressCity/State/ZIP CodePhone Number [facility] [address] * (ABNORMAL) BASIC METABOLIC PANEL (06/09/2025 4:04 PM EDT) Only the most recent of10 resultswithin the time period is included. ComponentValueRef RangeTest MethodAnalysis TimePerformed AtPathologist Signature Ivhzezw327(H)74 - 99 mg/dL06/09/2025 5:01 PM EDTFWILLIAMS HOSPITAL LABORATORYComment: The [place] [employer] (ADA) provides guidance for cutoff [...] Standards of Medical Care in Diabetes 2016, [place] [employer]. Diabetes Care. 2016.39(Suppl 1). YPN775 - 21 mg/dL06/09/2025 5:01 PM EDTFAIRVIEW LABORATORYCreatinine0.610.58 - 0.96 mg/dL06/09/2025 5:01 PM EDTFAIRVIEW PRTTLROLCIEqzmql103(L)136 - 144 mmol/L 06/09/2025 5:01 PM EDTFAIRVIEW LABORATORYPotassium5.03.7 - 5.1 mmol/L1 5:01 PM EDTFAIRVIEW HZPWUUBKNSZiepeytb85196 - 107 mmol/L1 5:01 PM EDT [facility] BVNLKDXVDEMO192(L)22 - 30 mmol/L1 5:01 PM EDTFAIRVIEW LABORATORYAnion Xqw751 - 15 mmol/L1 5:01 PM EDTFAIRVIEW LABORATORY Calcium, Total9.48.5 - 10.2 mg/dL06/09/2025 5:01 PM EDTFAIRVIEW LABORATORY Estimated Glomerular Filtration Frye056>=60 mL/min/1.73m 06/09/2025 5:01 PM EDTFAIRVIEW LABORATORYComment:Estimated Glomerular Filtration Rate (eGFR) is calculated [...] Method / VolumeCollection TimeReceived TimeBloodBLOOD SPECIMEN / Unknown Venipuncture / Uhrfmvp0306/09/2025 4:04 PM EDT1 4:33 PM EDT Narrative Authorizing ProviderResult TypeResult StatusCarmen R Glassco BISQUE GRADER.CNPLABORATORY Final ResultPerforming OrganizationAddressCity/State/ZIP CodePhone Number [facility] [address] [place] [address], * MRI LUMBAR SPINE WO/W IVCON (06/04/2025 11:56 PM EDT)Anatomical Region LateralityModalityL-spineMagnetic ResonanceSpecimen (Source)Anatomical Location / LateralityCollection Method / VolumeCollection TimeReceived Time 06/04/2025 11:56 PM EDT Impressions 06/05/2025 2:11 AM EDT IMPRESSION: No acute abnormality of the thoracic and lumbar spine. No epidural collection. Chronic findings as detailed above. Lumbar degenerative change and associated postoperative changes L3-4 and L4-5 as detailed above. Nursing Executive: PSCB ?? Transcribe Date/Time: Jun 05 2025 ??1:42A Dictated by : ORIN JAVIER MD This examination was interpreted and the report reviewed and electronically signed by: ORIN JAVIER MD on Jun 05 2025 ??2:09AM ??EST Narrative 06/05/2025 2:11 AM EDT * * *Final Report* * * DATE OF EXAM: Jun 04 2025 11:56PM ?? FVM ?? 0304 ??- ??MRI LUMBAR SPINE WO/W IVCON ??/ PROCEDURE REASON: Epidural abscess suspected ? * * * * Physician Interpretation * * * * EXAMINATION: ??MRI LUMBAR SPINE WO/W IVCON, MRI THORACIC SPINE WO/W IVCON CLINICAL HISTORY: ??Epidural abscess suspected TECHNIQUE: Routine lumbosacral and thoracic spine MR protocol without and with intravenous gadolinium. Contrast: ??IV administration of 10 ml of Elucirem COMPARISON: 09/14/2021 lumbar MRI. RESULT: THORACIC: Alignment: ?? Alignment is anatomic. Cord: ??The thoracic spinal cord is within normal limits of signal intensity and morphology. Bone marrow signal/fracture: ?? Posterior fusion at T7-T8. No evidence of pathologic marrow infiltration. ??No evidence of prior fracture. Thoracic soft tissues: ?The paraspinal soft tissues are within normal limits. Canal and foramina: ?? The thoracic canal and foramina are patent within the constraints of the study. Dorsal epidural lipomatosis, contributes to mild generalized effacement of the thecal sac. LUMBAR: Counting reference: ??lumbosacral junctions. ??For the purposes of this report, ??L4-5 is considered the level of the iliac crest and assume there are 5 lumbar-type vertebrae. ??Anatomic variant: ??None. Alignment: ?? Alignment is anatomic. Bone marrow signal/fracture: Small laminectomy defect L3-L4. Left L4-5 laminotomy/facetectomy defect. No evidence of pathologic marrow infiltration. ??No evidence of prior fracture. Conus: ?The conus is within normal limits of signal intensity and morphology. Paraspinal soft tissues: ?Surgical changes with soft tissue enhancement L3-4 and left L4-5, most likely postoperative. Soft tissues otherwise normal. No collection is present. L1-L2: ?Canal and foramina are patent. L2-L3: ?Disc bulge with central disc protrusion contributes to mild central stenosis. No foraminal stenosis L3-L4: ?Small central disc extrusion superimposed on disc bulge contributes to mild to moderate central stenosis and mild to moderate left foraminal stenosis. No right foraminal stenosis. L4-L5: ?Small central disc extrusion superimposed on degenerative disc bulge contributes to mild central stenosis and partially effaces the lateral recess bilaterally. L5-S1: ?Small central disc extrusion superimposed on disc bulge, contributes to mild bilateral foraminal stenosis. Sacrum and iliac wings: ?? The visualized sacrum and iliac wings are within normal limits. ??The presacral soft tissues are normal in appearance. Procedure Note Provider, [facility] - 06/05/2025 * * *Final Report* * * DATE OF EXAM: Jun 04 2025 11:56PM M 0304 - MRI LUMBAR SPINE WO/W IVCON / PROCEDURE REASON: Epidural abscess suspected * * * * Physician Interpretation * * * * EXAMINATION: MRI LUMBAR SPINE WO/W IVCON, MRI THORACIC SPINE WO/WIVCON CLINICAL HISTORY: Epidural abscess suspected TECHNIQUE: Routine lumbosacral and thoracic spine MR protocol without and with intravenous gadolinium. Contrast: IV administration of 10 ml of Elucirem COMPARISON: 09/14/2021 lumbar MRI. RESULT: THORACIC: Alignment: Alignment is anatomic. Cord: The thoracic spinal cord is within normal limits of signal intensity and morphology. Bone marrow signal/fracture: Posterior fusion at T7-T8. No evidence of pathologic marrow infiltration. No evidence of prior fracture. Thoracic soft tissues: The paraspinal soft tissues are within normal limits. Canal and foramina: The thoracic canal and foramina are patent within the constraints of the study. Dorsal epidural lipomatosis, contributes to mild generalized effacement of the thecal sac. LUMBAR: Counting reference: lumbosacral junctions. For the purposes of this report, L4-5 is considered the level of the iliac crest and assume there are 5 lumbar-type vertebrae. Anatomic variant: None. Alignment: Alignment is anatomic. Bone marrow signal/fracture: Small laminectomy defect L3-L4. Left L4-5 laminotomy/facetectomy defect. No evidence of pathologic marrow infiltration. No evidence of prior fracture. Conus: The conus is within normal limits of signal intensity and morphology. Paraspinal soft tissues: Surgical changes with soft tissue enhancement L3-4 and left L4-5, most likely postoperative. Soft tissues otherwise normal. No collection is present. L1-L2: Canal and foramina are patent. L2-L3: Disc bulge with central disc protrusion contributes to mild central stenosis. No foraminal stenosis L3-L4: Small central disc extrusion superimposed on disc bulge contributes to mild to moderate central stenosis and mild to moderate left foraminal stenosis. No right foraminal stenosis. L4-L5: Small central disc extrusion superimposed on degenerative disc bulge contributes to mild central stenosis and partially effaces the lateral recess bilaterally. L5-S1: Small central disc extrusion superimposed on disc bulge, contributes to mild bilateral foraminal stenosis. Sacrum and iliac wings: The visualized sacrum and iliac wings are within normal limits. The presacral soft tissues are normal in appearance. IMPRESSION IMPRESSION: No acute abnormality of the thoracic and lumbar spine. No epidural collection. Chronic findings as detailed above. Lumbar degenerative change and associated postoperative changes L3-4 and L4-5 as detailed above. Nursing Executive: PSCB Transcribe Date/Time: Jun 05 2025 1:42A Dictated by : ORIN JAVIER MD This examination was interpreted and the report reviewed and electronically signed by: ORIN JAVIER MD on Jun 05 2025 2:09AM EST Authorizing ProviderResult TypeResult StatusShtano Bentley-CMRI-PAMA Final Result * MRI THORACIC SPINE WO/W IVCON (06/04/2025 11:56 PM EDT)Anatomical Region LateralityModalityT-spineMagnetic ResonanceSpecimen (Source)Anatomical Location / LateralityCollection Method / VolumeCollection TimeReceived Time 06/04/2025 11:56 PM EDT Impressions 06/05/2025 2:11 AM EDT IMPRESSION: No acute abnormality of the thoracic and lumbar spine. No epidural collection. Chronic findings as detailed above. Lumbar degenerative change and associated postoperative changes L3-4 and L4-5 as detailed above. Nursing Executive: JACINDA ?? Transcribe Date/Time: Jun 05 2025 ??1:42A Dictated by : ORIN JAVIER MD This examination was interpreted and the report reviewed and electronically signed by: ORIN JAVIER MD on Jun 05 2025 ??2:09AM ??EST Narrative 06/05/2025 2:11 AM EDT * * *Final Report* * * DATE OF EXAM: Jun 04 2025 11:56PM ?? FVM ?? [id number] ??- ??MRI THORACIC SPINE WO/W IVCON ??/ PROCEDURE REASON: Epidural abscess suspected ? * * * * Physician Interpretation * * * * EXAMINATION: ??MRI LUMBAR SPINE WO/W IVCON, MRI THORACIC SPINE WO/W IVCON CLINICAL HISTORY: ??Epidural abscess suspected TECHNIQUE: Routine lumbosacral and thoracic spine MR protocol without and with intravenous gadolinium. Contrast: ??IV administration of 10 ml of Elucirem COMPARISON: 09/14/2021 lumbar MRI. RESULT: THORACIC: Alignment: ?? Alignment is anatomic. Cord: ??The thoracic spinal cord is within normal limits of signal intensity and morphology. Bone marrow signal/fracture: ?? Posterior fusion at T7-T8. No evidence of pathologic marrow infiltration. ??No evidence of prior fracture. Thoracic soft tissues: ?The paraspinal soft tissues are within normal limits. Canal and foramina: ?? The thoracic canal and foramina are patent within the constraints of the study. Dorsal epidural lipomatosis, contributes to mild generalized effacement of the thecal sac. LUMBAR: Counting reference: ??lumbosacral junctions. ??For the purposes of this report, ??L4-5 is considered the level of the iliac crest and assume there are 5 lumbar-type vertebrae. ??Anatomic variant: ??None. Alignment: ?? Alignment is anatomic. Bone marrow signal/fracture: Small laminectomy defect L3-L4. Left L4-5 laminotomy/facetectomy defect. No evidence of pathologic marrow infiltration. ??No evidence of prior fracture. Conus: ?The conus is within normal limits of signal intensity and morphology. Paraspinal soft tissues: ?Surgical changes with soft tissue enhancement L3-4 and left L4-5, most likely postoperative. Soft tissues otherwise normal. No collection is present. L1-L2: ?Canal and foramina are patent. L2-L3: ?Disc bulge with central disc protrusion contributes to mild central stenosis. No foraminal stenosis L3-L4: ?Small central disc extrusion superimposed on disc bulge contributes to mild to moderate central stenosis and mild to moderate left foraminal stenosis. No right foraminal stenosis. L4-L5: ?Small central disc extrusion superimposed on degenerative disc bulge contributes to mild central stenosis and partially effaces the lateral recess bilaterally. L5-S1: ?Small central disc extrusion superimposed on disc bulge, contributes to mild bilateral foraminal stenosis. Sacrum and iliac wings: ?? The visualized sacrum and iliac wings are within normal limits. ??The presacral soft tissues are normal in appearance. Procedure Note Provider, [facility] [place] - 06/05/2025 * * *Final Report* * * DATE OF EXAM: Jun 04 2025 11:56PM FVM 0326 - MRI THORACIC SPINE WO/W IVCON / PROCEDURE REASON: Epidural abscess suspected * * * * Physician Interpretation * * * * EXAMINATION: MRI LUMBAR SPINE WO/W IVCON, MRI THORACIC SPINE WO/WIVCON CLINICAL HISTORY: Epidural abscess suspected TECHNIQUE: Routine lumbosacral and thoracic spine MR protocol without and with intravenous gadolinium. Contrast: IV administration of 10 ml of Elucirem COMPARISON: 09/14/2021 lumbar MRI. RESULT: THORACIC: Alignment: Alignment is anatomic. Cord: The thoracic spinal cord is within normal limits of signal intensity and morphology. Bone marrow signal/fracture: Posterior fusion at T7-T8. No evidence of pathologic marrow infiltration. No evidence of prior fracture. Thoracic soft tissues: The paraspinal soft tissues are within normal limits. Canal and foramina: The thoracic canal and foramina are patent within the constraints of the study. Dorsal epidural lipomatosis, contributes to mild generalized effacement of the thecal sac. LUMBAR: Counting reference: lumbosacral junctions. For the purposes of this report, L4-5 is considered the level of the iliac crest and assume there are 5 lumbar-type vertebrae. Anatomic variant: None. Alignment: Alignment is anatomic. Bone marrow signal/fracture: Small laminectomy defect L3-L4. Left L4-5 laminotomy/facetectomy defect. No evidence of pathologic marrow infiltration. No evidence of prior fracture. Conus: The conus is within normal limits of signal intensity and morphology. Paraspinal soft tissues: Surgical changes with soft tissue enhancement L3-4 and left L4-5, most likely postoperative. Soft tissues otherwise normal. No collection is present. L1-L2: Canal and foramina are patent. L2-L3: Disc bulge with central disc protrusion contributes to mild central stenosis. No foraminal stenosis L3-L4: Small central disc extrusion superimposed on disc bulge contributes to mild to moderate central stenosis and mild to moderate left foraminal stenosis. No right foraminal stenosis. L4-L5: Small central disc extrusion superimposed on degenerative disc bulge contributes to mild central stenosis and partially effaces the lateral recess bilaterally. L5-S1: Small central disc extrusion superimposed on disc bulge, contributes to mild bilateral foraminal stenosis. Sacrum and iliac wings: The visualized sacrum and iliac wings are within normal limits. The presacral soft tissues are normal in appearance. IMPRESSION IMPRESSION: No acute abnormality of the thoracic and lumbar spine. No epidural collection. Chronic findings as detailed above. Lumbar degenerative change and associated postoperative changes L3-4 and L4-5 as detailed above. Nursing Executive: JACINDA Transcribe Date/Time: Jun 05 2025 1:42A Dictated by : ORIN JAVIER MD This examination was interpreted and the report reviewed and electronically signed by: ORIN JAVIER MD on Jun 05 2025 2:09AM EST Authorizing ProviderResult TypeResult StatusShtano Ahuja [id number]-GWPU-TLIP Final Result * (ABNORMAL) URINE CULTURE IF INDICATED (06/04/2025 8:30 PM EDT) Only the most recent of2 resultswithin the time period is included. ComponentValueRef RangeTest MethodAnalysis TimePerformed AtPathologist Signature Culture, Urine>=100,000 CFU/ml Escherichia coli(A) MINIMUM INHIBITORY CONCENTRATION(VITEK) 06/06/2025 8:29 AM EDTCGLENBEIGH HOSPITAL LABSpecimen (Source) Anatomical Location / LateralityCollection Method / VolumeCollection Time Received TimeUrineMID-STREAM URINE SPECIMEN / UnknownNon Blood / Unknown 06/04/2025 8:30 PM EDT1 8:34 PM EDT Narrative [facility] - 06/06/2025 8:29 AM EDT This test was developed and its performance characteristics determined by the [facility] [place] ([facility] It has not been cleared or approved by the FDA. [facility] is regulated under CLIA as qualified to perform high-complexity testing. This test is used for clinical purposes. It should not be regarded as investigational or for research. OrganismAntibioticMethodSusceptibilityEscherichia coliAmpicillinMINIMUM INHIBITORY CONCENTRATION(VITEK) >=32: Resistant Escherichia coliCefazolinMINIMUM INHIBITORY CONCENTRATION(VITEK) <=4: Susceptible Comment:For uncomplicated urinary tract infections, cefazolin results can be used to predict susceptibilityor resistance to cephalexin.Escherichia coli CeftriaxoneMINIMUM INHIBITORY CONCENTRATION(VITEK) <=1: Susceptible Escherichia coliCefepimeMINIMUM INHIBITORY CONCENTRATION(VITEK) <=1: Susceptible Escherichia coliErtapenemMINIMUM INHIBITORY CONCENTRATION(VITEK) <=0.5: Susceptible Escherichia coliMeropenemMINIMUM INHIBITORY CONCENTRATION(VITEK) <=0.25: Susceptible Escherichia coliAmpicillin/SulbactMINIMUM INHIBITORY CONCENTRATION(VITEK) 16: Intermediate Escherichia coliPiperacillin/TazobacMINIMUM INHIBITORY CONCENTRATION(VITEK) <=4: Susceptible Escherichia coliGentamicinMINIMUM INHIBITORY CONCENTRATION(VITEK) >=16: Resistant Escherichia coliTobramycinMINIMUM INHIBITORY CONCENTRATION(VITEK) 8: Resistant Escherichia coliAmikacinMINIMUM INHIBITORY CONCENTRATION(VITEK) <=2: Susceptible Escherichia coliTrimeth sulfamethMINIMUM INHIBITORY CONCENTRATION(VITEK) <=20: Susceptible Escherichia coliCiprofloxacinMINIMUM INHIBITORY CONCENTRATION(VITEK) 0.5: Intermediate Escherichia coliNitrofurantoinMINIMUM INHIBITORY CONCENTRATION(VITEK) <=16: Susceptible Authorizing ProviderResult TypeResult StatusPamela Enrique [facility]UNITY HOSPITALICROBIOLOGYFinal ResultPerforming OrganizationAddressCity/State/ZIP CodePhone Number [facility] [address] [facility] [address] [place] [address], [place] * (ABNORMAL) URINALYSIS (WITH MICROSCOPIC) WITH CULTURE IF INDICATED (06/04/2025 8:30 PM EDT) Only the most recent of3 resultswithin the time period is included. ComponentValueRef RangeTest MethodAnalysis TimePerformed AtPathologist Signature NzczxXzfgokDdnnuj58/11/2025 8:45 PM EDTFAIRVIEW LABORATORYClarityTurbid(A)Clear 06/04/2025 8:45 PM EDTFAIRVIEW LABORATORYGlucose, UrineNegativeTrace, Negative 06/04/2025 8:45 PM EDTFAIRVIEW LABORATORYBilirubin, UrineNegativeNegative 06/04/2025 8:45 PM EDTFAIRVIEW LABORATORYKetones, UrineNegativeNegative, Trace 06/04/2025 8:45 PM EDTFAIRVIEW LABORATORYSpecific [place], Ur1.0221.005 - 1.030 06/04/2025 8:45 PM EDTFAIRVIEW LABORATORYHemoglobin/Blood,UrNegativeNegative, Trace06/04/2025 8:45 PM EDTFAIRVIEW LABORATORYpH, Urine5.55.0 - 8.010 8:45 PM EDTFAIRVIEW LABORATORYProtein, UrineTraceTrace, Ektuuxec80/11/2025 8:45 PM EDTFAIRVIEW WVREFRZJDQMmmgdmmsumugRsjozdIorpoj00/11/2025 8:45 PM EDTFAIRVIEW LABORATORYNitrites2+(A)Gjjddpjd89/11/2025 8:45 PM EDTFAIRVIEW LABORATORYLeuk Vbhvorgz757 Rupesh/uL(A)Negative, 25 Rupesh/uL06/04/2025 8:45 PM EDTFAIRVIEW LABORATORYWBC, Urine>25 /HPF(A)0-5 /HPF06/04/2025 8:45 PM EDTFAIRVIEW LABORATORY RBC, Urine6-10 /HPF(A)0-3 /HPF06/04/2025 8:45 PM EDTFAIRVIEW LABORATORYBacteria Moderate(A)None Seen /HPF06/04/2025 8:45 PM EDTFAIRVIEW LABORATORYSquamous Epithelial CellsFew/HPF06/04/2025 8:45 PM EDTFAIRVIEW LABORATORYSpecimen (Source)Anatomical Location / LateralityCollection Method / VolumeCollection TimeReceived TimeUrineMID-STREAM URINE SPECIMEN / UnknownNon Blood / Unknown 06/04/2025 8:30 PM EDT1 8:34 PM EDT Narrative Authorizing ProviderResult TypeResult StatusAngeli Nunez MDLABORATORYFinal ResultPerforming OrganizationAddressCity/State/ZIP CodePhone Number [facility] [address] [place] [id number], * BACTERIAL CULTURE, BLOOD (06/04/2025 8:18 PM EDT) Only the most recent of4 resultswithin the time period is included. ComponentValueRef RangeTest MethodAnalysis TimePerformed AtPathologist Signature Culture, BloodNo growth 5 days06/10/2025 1:01 AM EDTCCORE[facility] Specimen (Source)Anatomical Location / LateralityCollection Method / Volume Collection TimeReceived TimeBloodBLOOD SPECIMEN / UnknownVenipuncture / Unknown 06/04/2025 8:18 PM EDT1 8:40 PM EDT Narrative Authorizing ProviderResult TypeResult StatusAngeli Nunez MDMICROBIOLOGYFinal ResultPerforming OrganizationAddressCity/State/ZIP CodePhone Number [facility] [address] [place] [address], * XR THORACIC GENERAL 3V AP/LAT/SWIMMERS (06/04/2025 7:23 PM EDT)Anatomical RegionLateralityModalityT-spineRadiographic ImagingSpecimen (Source)Anatomical Location / LateralityCollection Method / VolumeCollection TimeReceived Time 06/04/2025 7:23 PM EDT Impressions 06/04/2025 9:03 PM EDT IMPRESSION: Postsurgical changes in the thoracic spine without acute osseous findings. Nursing Executive: CHICHIB ?? Transcribe Date/Time: Jun 04 2025 ??9:00P Dictated by : LOPEZ MUNOZ MD This examination was interpreted and the report reviewed and electronically signed by: LOPEZ MUNOZ MD on Jun 04 2025 ??9:01PM ??EST Narrative 06/04/2025 9:03 PM EDT * * *Final Report* * * DATE OF EXAM: Jun 04 2025 ??7:23PM ?? FVX ?? [id number] ??- ??XR THORACIC 3V AP/LAT/SWIMMERS ??/ PROCEDURE REASON: Back pain ? * * * * Physician Interpretation * * * * EXAMINATION: ??XR THORACIC 3V AP/LAT/SWIMMERS CLINICAL HISTORY: ?? back pain Technique: ?? XR THORACIC 3V AP/LAT/SWIMMERS -- NOT APPLICABLE with 3 views on 3 images Comparison: 05/01/2025 RESULT: Thoracic spine: Counting reference: First rib-bearing vertebra. Status post posterior arleth and screw fixation at T7-8. ??Hardware appears intact without evidence of loosening. ??Disc spaces appear preserved. ?? Straightening of normal thoracic kyphosis. ??No erosions or syndesmophytes. ??No fracture or compression defect. ??Visualized lungs are clear. Procedure Note Provider, [facility] - 06/04/2025 * * *Final Report* * * DATE OF EXAM: Jun 04 2025 7:23PM FVX [id number] - XR THORACIC 3V AP/LAT/SWIMMERS / PROCEDURE REASON: Back pain * * * * Physician Interpretation * * * * EXAMINATION: XR THORACIC 3V AP/LAT/SWIMMERS CLINICAL HISTORY: back pain Technique: XR THORACIC 3V AP/LAT/SWIMMERS -- NOT APPLICABLE with 3 views on 3 images Comparison: 05/01/2025 RESULT: Thoracic spine: Counting reference: First rib-bearing vertebra. Status post posterior arleth and screw fixation at T7-8. Hardware appears intact without evidence of loosening. Disc spaces appear preserved. Straightening of normal thoracic kyphosis. No erosions or syndesmophytes. No fracture or compression defect. Visualized lungs are clear. IMPRESSION IMPRESSION: Postsurgical changes in the thoracic spine without acute osseousfindings. Nursing Executive: PSCB Transcribe Date/Time: Jun 04 2025 9:00P Dictated by : LOPEZ MUNOZ MD This examination was interpreted and the report reviewed and electronically signed by: LOPEZ MUNOZ MD on Jun 04 2025 9:01PM EST Authorizing ProviderResult TypeResult StatusThomas Harry Oscar Jr., MD RAD-PAMAFinal Result * COMPLETE BLOOD COUNT AND DIFFERENTIAL (06/04/2025 7:15 PM EDT) Only the most recent of5 resultswithin the time period is included. ComponentValueRef RangeTest MethodAnalysis TimePerformed AtPathologist Signature WBC9.303.70 - 11.00 k/uL06/04/2025 7:[address] [facility] HOSPITALVIEW LABORATORYRBC4.903.90 - 5.20 m/uL06/04/2025 7:26 PM [facility] HLONBAUMKFCgoekuuatm17.311.5 - 15.5 g/dL 06/04/2025 7:26 PM [facility] GWYEECUNHIJbuvlcdnkw45.636.0 - 46.0 %06/04/2025 7:26 PM [facility] TLCMFYIINFUJX74.980.0 - 100.0 fL06/04/2025 7:26 PM EDT [place] YGRWKAWFDTMQD71.226.0 - 34.0 pg06/04/2025 7:26 PM [facility] BKEDPPKNEVHEZJ77.430.5 - 36.0 g/dL06/04/2025 7:26 PM [facility] LABORATORY RDW-CV12.011.5 - 15.0 %06/04/2025 7:26 PM [facility] LABORATORYPlatelet Count [id number] - 400 k/uL06/04/2025 7:26 PM [facility] LABORATORYMPV9.99.0 - 12.7 fL 06/04/2025 7:26 PM EDTFAIRVIEW LABORATORYNeutrophils %57.6%06/04/2025 7:26 PM EDTFAIRVIEW LABORATORYAbs Neut5.341.45 - 7.50 k/uL06/04/2025 7:26 PM EDTFAIRVIEW LABORATORYLymphocytes %30.4%06/04/2025 7:26 PM EDTFAIRVIEW LABORATORYAbs Lymph 2.831.00 - 4.00 k/uL06/04/2025 7:26 PM EDTFAIRVIEW LABORATORYMonocytes %6.3% 06/04/2025 7:26 PM EDTFAIRVIEW LABORATORYAbs Mono0.59<0.87 k/uL06/04/2025 7:26 PM EDTFAIRVIEW LABORATORYEosinophils %4.8%06/04/2025 7:26 PM EDTFAIRVIEW LABORATORYAbs Eosin0.45<0.46 k/uL06/04/2025 7:26 PM EDTFAIRVIEW LAB[facility]ATORY Basophils %0.6%06/04/2025 7:26 PM EDTFAIRVIEW LABORATORYAbs Baso0.06<0.11 k/uL 06/04/2025 7:26 PM EDTFAIRVIEW LABORATORYImmature Granulocytes %0.3%06/04/2025 7:26 PM EDTFAIRVIEW LABORATORYAbs Immature Gran0.03<0.10 k/uL06/04/2025 7:26 PM EDTFAIRVIEW LABORATORYNRBC0.0/100 WBC06/04/2025 7:26 PM EDTFAIRVIEW LABORATORY Absolute nRBC<0.01<0.01 k/uL06/04/2025 7:26 PM EDTFAIRVIEW LABORATORYDiff Type Auto06/04/2025 7:26 PM EDTFAIRVIEW LABORATORYSpecimen (Source)Anatomical Location / LateralityCollection Method / VolumeCollection TimeReceived TimeBlood BLOOD SPECIMEN / UnknownVenipuncture / Alqzocj5806/04/2025 7:15 PM EDT1 7:23 PM EDT Narrative Authorizing ProviderResult TypeResult StatusThomas Harry Oscar Jr., MD LABORATORYFinal ResultPerforming OrganizationAddressCity/State/ZIP CodePhone Number [facility] [address] [place] [address], * C-REACTIVE PROTEIN (06/04/2025 7:15 PM EDT) Only the most recent of2 resultswithin the time period is included. ComponentValueRef RangeTest MethodAnalysis TimePerformed AtPathologist Signature CRP0.8<0.9 mg/dL06/04/2025 11:09 PM EDTFAIRVIEW LABORATORYSpecimen (Source) Anatomical Location / LateralityCollection Method / VolumeCollection Time Received TimeBloodBLOOD SPECIMEN / UnknownVenipuncture / Eofvsns0506/04/2025 7:15 PM EDT1 7:23 PM EDT Narrative Authorizing ProviderResult TypeResult StatusAngeli Nunez MDLABORATORYFinal ResultPerforming OrganizationAddressCity/State/ZIP CodePhone Number [facility] [address] [place] [address], * (ABNORMAL) CT FLANK WO IVCON (06/03/2025 2:11 PM EDT)ComponentValueRef Range Test MethodAnalysis TimePerformed AtPathologist SignatureRadiology Result ACTIONABLE(Actionable)[facility]IOLOGYComment: This report contains an incidental or actionable finding. ??This finding may be a new finding separate from the reason your provider ordered the imaging test or it may be an already known finding that needs additional or continued follow-up. Because of this incidental or actionable finding, you may need another test (imaging or a different type of test). ??Please contact your provider for the next steps. Anatomical RegionLateralityModalityAbdomenComputed TomographySpecimen (Source) Anatomical Location / LateralityCollection Method / VolumeCollection Time Received Time06/03/2025 2:11 PM EDT Impressions 06/03/2025 2:40 PM EDT IMPRESSION: Nonobstructing punctate RIGHT renal calculus. No hydronephrosis. No acute finding. Limited imaging of the lumbar spine-see results Incompletely imaged density RIGHT upper lobe anterior segment probably atelectasis or scarring. Suggest correlation with standard PA and lateral chest x-ray. ACTIONABLE RESULT: FOLLOW-UP Acuity: Actionable Findings: Thoracic-Other Routing Code: ??CT_1 Recommendation: XR Chest 2 view Time Frame: At the discretion of the clinical team. COMMUNICATION: Results will be communicated with the ordering provider via [employer] staff message or phone message by [facility] Support Services within 2 business days of report finalization. --END OF FINDING-- Nursing Executive: JACINDA ?? Transcribe Date/Time: Jun 03 2025 ??2:22P Dictated by : TRUONG FONTANA MD This examination was interpreted and the report reviewed and electronically signed by: TRUONG FONTANA MD on Jun 03 2025 ??2:38PM ??EST Narrative 06/03/2025 2:40 PM EDT * * *Final Report* * * DATE OF EXAM: Jun 03 2025 ??2:11PM ?? [facility] ?? 0529 ??- ??CT FLANK WO IVCON ??/ PROCEDURE REASON: Flank pain, kidney stone suspected ? * * * * Physician Interpretation * * * * EXAMINATION: ?? CT ABDOMEN AND PELVIS WITHOUT IV CONTRAST and CT lumbar spine (Renal stone protocol) CLINICAL HISTORY: Unspecified flank pain. TECHNIQUE: Non-contrast imaging of the abdomen and pelvis was performed through the urinary tract. ??Study performed without intravenous or oral contrast to evaluate for urinary tract calculus. MQ: ??CTAbdPelvF_1 Contrast: IV contrast: None Oral contrast: None CT Radiation dose: Integrated dose-length product (DLP) for this visit ??= 820 mGy*cm. CT Dose Reduction Employed: Automated exposure control(AEC) and iterative recon COMPARISON: None. RESULT: Limitations: ?? Unenhanced imaging is limited for the evaluation of some renal and other intra-abdominal and pelvic pathology. Urinary Tract: Right kidney and ureter: No calculus. No hydronephrosis. No finding to suggest cyst or mass in the unenhanced kidney. Left kidney and ureter: No calculus. No hydronephrosis. No finding to suggest cyst or mass in the unenhanced kidney. Bladder: No calculus. Abdomen and Pelvis: Liver: Unremarkable. Biliary: The gallbladder is unremarkable. Spleen: No splenomegaly. Pancreas: Unremarkable. Adrenals: Normal. GI Tract: ??No bowel dilation. ??Normal appendix. No diverticulosis. Lymph Nodes: ??No lymphadenopathy. Mesentery/peritoneum: No ascites. Vasculature: No abdominal aortic or iliac artery aneurysm. Pelvis: No mass or ascites. ??IUD in uterus Bones and Soft Tissues: There is lower thoracic spinal hardware. No acute abnormality. Lower thorax: Curvilinear density RIGHT upper lobe anterior segment on superior images. Localizer images: No additional findings. Trauma CT Lumbar Spine: Technique: Additional high-resolution multiplanar images were created for review of the skeletal structures. These images were reconstructed from data obtained for a CT flank which is performed with a reduced dosage compared to a CT abdomen pelvis. As a consequence the resolution of the lumbar spine and paraspinal tissues is considerably limited Counting reference: ??Lumbosacral junction. ??For the purposes of this report, ??L4-5 is considered the level of the iliac crest and assume there are 5 lumbar-type vertebrae. ??Anatomic variant: ??None. Alignment: ??Anatomic. Bone marrow / fracture: ??No lytic or blastic process in the visualized spine. ?? No acute or chronic fracture. Paraspinal soft tissues: ??The paraspinal soft tissue planes are maintained. Degenerative change: There is at least mild narrowing at the L2-3 and L3-4 disc space levels. Pelvis (the included portions of the bony pelvis): No acute or chronic ?? fracture. Procedure Note Provider, [facility] [place] - 06/03/2025 * * *Final Report* * * DATE OF EXAM: Jun 03 2025 2:11PM [facility] 0529 - CT FLANK WO IVCON / PROCEDURE REASON: Flank pain, kidney stone suspected * * * * Physician Interpretation * * * * EXAMINATION: CT ABDOMEN AND PELVIS WITHOUT IV CONTRAST and CT lumbar spine (Renal stone protocol) CLINICAL HISTORY: Unspecified flank pain. TECHNIQUE: Non-contrast imaging of the abdomen and pelvis was performed through the urinary tract. Study performed without intravenous or oral contrast to evaluate for urinary tract calculus. MQ: CTAbdPelvF_1 Contrast: IV contrast: None Oral contrast: None CT Radiation dose: Integrated dose-length product (DLP) for this visit = 820 mGy*cm. CT Dose Reduction Employed: Automated exposure control(AEC) and iterative recon COMPARISON: None. RESULT: Limitations: Unenhanced imaging is limited for the evaluation of some renal and other intra-abdominal and pelvic pathology. Urinary Tract: Right kidney and ureter: No calculus. No hydronephrosis. No finding to suggest cyst or mass in the unenhanced kidney. Left kidney and ureter: No calculus. No hydronephrosis. No finding to suggest cyst or mass in the unenhanced kidney. Bladder: No calculus. Abdomen and Pelvis: Liver: Unremarkable. Biliary: The gallbladder is unremarkable. Spleen: No splenomegaly. Pancreas: Unremarkable. Adrenals: Normal. GI Tract: No bowel dilation. Normal appendix. No diverticulosis. Lymph Nodes: No lymphadenopathy. Mesentery/peritoneum: No ascites. Vasculature: No abdominal aortic or iliac artery aneurysm. Pelvis: No mass or ascites. IUD in uterus Bones and Soft Tissues: There is lower thoracic spinal hardware. No acute abnormality. Lower thorax: Curvilinear density RIGHT upper lobe anterior segment on superior images. Localizer images: No additional findings. Trauma CT Lumbar Spine: Technique: Additional high-resolution multiplanar images were created for review of the skeletal structures. These images were reconstructed from data obtained for a CT flank which is performed with a reduced dosage compared to a CT abdomen pelvis. As a consequence the resolution of the lumbar spine and paraspinal tissues is considerably limited Counting reference: Lumbosacral junction. For the purposes of this report, L4-5 is considered the level of the iliac crest and assume there are 5 lumbar-type vertebrae. Anatomic variant: None. Alignment: Anatomic. Bone marrow / fracture: No lytic or blastic process in the visualized spine. No acute or chronic fracture. Paraspinal soft tissues: The paraspinal soft tissue planes are maintained. Degenerative change: There is at least mild narrowing at the L2-3 and L3-4 disc space levels. Pelvis (the included portions of the bony pelvis): No acute or chronic fracture. IMPRESSION IMPRESSION: Nonobstructing punctate RIGHT renal calculus. No hydronephrosis. No acute finding. Limited imaging of the lumbar spine-see results Incompletely imaged density RIGHT upper lobe anterior segment probably atelectasis or scarring. Suggest correlation with standard PA and lateral chest x-ray. ACTIONABLE RESULT: FOLLOW-UP Acuity: Actionable Findings: Thoracic-Other Routing Code: CT_1 Recommendation: XR Chest 2 view Time Frame: At the discretion of the clinical team. COMMUNICATION: Results will be communicated with the ordering provider via [employer] staff message or phone message by [facility] within 2 business days of report finalization. --END OF FINDING-- Nursing Executive: JACINDA Transcribe Date/Time: Jun 03 2025 2:22P Dictated by : TRUONG FONTANA MD This examination was interpreted and the report reviewed and electronically signed by: TRUONG FONTANA MD on Jun 03 2025 2:38PM EST Authorizing ProviderResult TypeResult StatusEmily Van JONESBJ-OLO-QXFJBxjfy Result * (ABNORMAL) CT LUMBAR SPINE WO IVCON (06/03/2025 2:11 PM EDT)ComponentValueRef RangeTest MethodAnalysis TimePerformed AtPathologist SignatureRadiology Result ACTIONABLE(Actionable)[facility] RADIOLOGYComment: This report contains an incidental or actionable finding. ??This finding may be a new finding separate from the reason your provider ordered the imaging test or it may be an already known finding that needs additional or continued follow-up. Because of this incidental or actionable finding, you may need another test (imaging or a different type of test). ??Please contact your provider for the next steps. Anatomical RegionLateralityModalityL-spineComputed TomographySpecimen (Source) Anatomical Location / LateralityCollection Method / VolumeCollection Time Received Time06/03/2025 2:11 PM EDT Impressions 06/03/2025 2:40 PM EDT IMPRESSION: Nonobstructing punctate RIGHT renal calculus. No hydronephrosis. No acute finding. Limited imaging of the lumbar spine-see results Incompletely imaged density RIGHT upper lobe anterior segment probably atelectasis or scarring. Suggest correlation with standard PA and lateral chest x-ray. ACTIONABLE RESULT: FOLLOW-UP Acuity: Actionable Findings: Thoracic-Other Routing Code: ??CT_1 Recommendation: XR Chest 2 view Time Frame: At the discretion of the clinical team. COMMUNICATION: Results will be communicated with the ordering provider via [employer] staff message or phone message by [facility] within 2 business days of report finalization. --END OF FINDING-- Nursing Executive: CHICHIB ?? Transcribe Date/Time: Jun 03 2025 ??2:22P Dictated by : TRUONG FONTANA MD This examination was interpreted and the report reviewed and electronically signed by: TRUONG FONTANA MD on Jun 03 2025 ??2:38PM ??EST Narrative 06/03/2025 2:40 PM EDT * * *Final Report* * * DATE OF EXAM: Jun 03 2025 ??2:11PM ?? [facility] ?? 0508 ??- ??CT LUMBAR SPINE WO IVCON ??/ PROCEDURE REASON: low back pain prior surgery ? * * * * Physician Interpretation * * * * EXAMINATION: ?? CT ABDOMEN AND PELVIS WITHOUT IV CONTRAST and CT lumbar spine (Renal stone protocol) CLINICAL HISTORY: Unspecified flank pain. TECHNIQUE: Non-contrast imaging of the abdomen and pelvis was performed through the urinary tract. ??Study performed without intravenous or oral contrast to evaluate for urinary tract calculus. MQ: ??CTAbdPelvF_1 Contrast: IV contrast: None Oral contrast: None CT Radiation dose: Integrated dose-length product (DLP) for this visit ??= 820 mGy*cm. CT Dose Reduction Employed: Automated exposure control(AEC) and iterative recon COMPARISON: None. RESULT: Limitations: ?? Unenhanced imaging is limited for the evaluation of some renal and other intra-abdominal and pelvic pathology. Urinary Tract: Right kidney and ureter: No calculus. No hydronephrosis. No finding to suggest cyst or mass in the unenhanced kidney. Left kidney and ureter: No calculus. No hydronephrosis. No finding to suggest cyst or mass in the unenhanced kidney. Bladder: No calculus. Abdomen and Pelvis: Liver: Unremarkable. Biliary: The gallbladder is unremarkable. Spleen: No splenomegaly. Pancreas: Unremarkable. Adrenals: Normal. GI Tract: ??No bowel dilation. ??Normal appendix. No diverticulosis. Lymph Nodes: ??No lymphadenopathy. Mesentery/peritoneum: No ascites. Vasculature: No abdominal aortic or iliac artery aneurysm. Pelvis: No mass or ascites. ??IUD in uterus Bones and Soft Tissues: There is lower thoracic spinal hardware. No acute abnormality. Lower thorax: Curvilinear density RIGHT upper lobe anterior segment on superior images. Localizer images: No additional findings. Trauma CT Lumbar Spine: Technique: Additional high-resolution multiplanar images were created for review of the skeletal structures. These images were reconstructed from data obtained for a CT flank which is performed with a reduced dosage compared to a CT abdomen pelvis. As a consequence the resolution of the lumbar spine and paraspinal tissues is considerably limited Counting reference: ??Lumbosacral junction. ??For the purposes of this report, ??L4-5 is considered the level of the iliac crest and assume there are 5 lumbar-type vertebrae. ??Anatomic variant: ??None. Alignment: ??Anatomic. Bone marrow / fracture: ??No lytic or blastic process in the visualized spine. ?? No acute or chronic fracture. Paraspinal soft tissues: ??The paraspinal soft tissue planes are maintained. Degenerative change: There is at least mild narrowing at the L2-3 and L3-4 disc space levels. Pelvis (the included portions of the bony pelvis): No acute or chronic ?? fracture. Procedure Note Provider, [facility] [place] - 06/03/2025 * * *Final Report* * * DATE OF EXAM: Jun 03 2025 2:11PM [facility] 0508 - CT LUMBAR SPINE WO IVCON / PROCEDURE REASON: low back pain prior surgery * * * * Physician Interpretation * * * * EXAMINATION: CT ABDOMEN AND PELVIS WITHOUT IV CONTRAST and CT lumbar spine (Renal stone protocol) CLINICAL HISTORY: Unspecified flank pain. TECHNIQUE: Non-contrast imaging of the abdomen and pelvis was performed through the urinary tract. Study performed without intravenous or oral contrast to evaluate for urinary tract calculus. MQ: CTAbdPelvF_1 Contrast: IV contrast: None Oral contrast: None CT Radiation dose: Integrated dose-length product (DLP) for this visit = 820 mGy*cm. CT Dose Reduction Employed: Automated exposure control(AEC) and iterative recon COMPARISON: None. RESULT: Limitations: Unenhanced imaging is limited for the evaluation of some renal and other intra-abdominal and pelvic pathology. Urinary Tract: Right kidney and ureter: No calculus. No hydronephrosis. No finding to suggest cyst or mass in the unenhanced kidney. Left kidney and ureter: No calculus. No hydronephrosis. No finding to suggest cyst or mass in the unenhanced kidney. Bladder: No calculus. Abdomen and Pelvis: Liver: Unremarkable. Biliary: The gallbladder is unremarkable. Spleen: No splenomegaly. Pancreas: Unremarkable. Adrenals: Normal. GI Tract: No bowel dilation. Normal appendix. No diverticulosis. Lymph Nodes: No lymphadenopathy. Mesentery/peritoneum: No ascites. Vasculature: No abdominal aortic or iliac artery aneurysm. Pelvis: No mass or ascites. IUD in uterus Bones and Soft Tissues: There is lower thoracic spinal hardware. No acute abnormality. Lower thorax: Curvilinear density RIGHT upper lobe anterior segment on superior images. Localizer images: No additional findings. Trauma CT Lumbar Spine: Technique: Additional high-resolution multiplanar images were created for review of the skeletal structures. These images were reconstructed from data obtained for a CT flank which is performed with a reduced dosage compared to a CT abdomen pelvis. As a consequence the resolution of the lumbar spine and paraspinal tissues is considerably limited Counting reference: Lumbosacral junction. For the purposes of this report, L4-5 is considered the level of the iliac crest and assume there are 5 lumbar-type vertebrae. Anatomic variant: None. Alignment: Anatomic. Bone marrow / fracture: No lytic or blastic process in the visualized spine. No acute or chronic fracture. Paraspinal soft tissues: The paraspinal soft tissue planes are maintained. Degenerative change: There is at least mild narrowing at the L2-3 and L3-4 disc space levels. Pelvis (the included portions of the bony pelvis): No acute or chronic fracture. IMPRESSION IMPRESSION: Nonobstructing punctate RIGHT renal calculus. No hydronephrosis. No acute finding. Limited imaging of the lumbar spine-see results Incompletely imaged density RIGHT upper lobe anterior segment probably atelectasis or scarring. Suggest correlation with standard PA and lateral chest x-ray. ACTIONABLE RESULT: FOLLOW-UP Acuity: Actionable Findings: Thoracic-Other Routing Code: CT_1 Recommendation: XR Chest 2 view Time Frame: At the discretion of the clinical team. COMMUNICATION: Results will be communicated with the ordering provider via [employer] staff message or phone message by [facility] within 2 business days of report finalization. --END OF FINDING-- Nursing Executive: PSCDhruv Transcribe Date/Time: Jun 03 2025 2:22P Dictated by : TRUONG FONTANA MD This examination was interpreted and the report reviewed and electronically signed by: TRUONG FONTANA MD on Jun 03 2025 2:38PM EST Authorizing ProviderResult TypeResult StatusEmradha JONESBM-ZPV-HIWATyftr Result * HCG, QUALITATIVE, URINE (06/03/2025 12:48 PM EDT)ComponentValueRef RangeTest MethodAnalysis TimePerformed AtPathologist SignatureHCG Qualitative, KwwpaRmksjqstQfmudjjo65/10/2025 1:12 PM EDTLUTHERAN LABORATORYComment:This test is intended to aid in the early detection of . Very dilute urine samples, as indicated by a low specific gravity, may not contain product support representative levels of hCG. This test detects intact hCG only. This test does not reliably detect hCG degradation products, including free-beta subunit and beta-core fragment. Therefore, this test may show reduced reactivity in urine after 8 weeks gestation. A number of conditions other than , including trophoblastic disease and certain non-trophoblastic neoplasms cause elevated levels of hCG. As with any assay employing mouse antibodies, the possibility exists for interference by human anti-mouse antibodies (HAMA) in the specimen. The test provides a presumptive diagnosis for .Specimen (Source)Anatomical Location / LateralityCollection Method / VolumeCollection TimeReceived TimeUrineURINE SPECIMEN / UnknownNon Blood / Xlapmtp4006/03/2025 12:48 PM EDT1 12:54 PM EDT Narrative Authorizing ProviderResult TypeResult StatusMirta JONES-CLABORATORYFinal ResultPerforming OrganizationAddressCity/State/ZIP CodePhone Number [facility] [address] [phone], * BACTERIAL CULTURE AND GRAM STAIN, ABSCESS AND WOUND (AEROBIC CULTURE) (05/20/2025 9:24 PM EDT) Only the most recent of2 resultswithin the time period is included. ComponentValueRef RangeTest MethodAnalysis TimePerformed AtPathologist Signature Culture, WoundNo sgkume5505/24/2025 9:00 AM [facility] Gram StainNo organisms seen05/24/2025 9:00 AM ED[facility] LABGram StainFew Polymorphonuclear nwtztfbbid84/30/2025 9:00 AM EDMEM[facility] LABSpecimen (Source)Anatomical Location / Laterality Collection Method / VolumeCollection TimeReceived TimeDrainage/Purulent/Non- Sterile FluidSPECIMEN FROM ABSCESS / Kcpdmmu6105/20/2025 9:24 PM EDT05/20/2025 9:26 PM EDT Narrative Authorizing ProviderResult TypeResult StatusJennifer Donze-Filiatraut DO MICROBIOLOGYFinal ResultPerforming OrganizationAddressCity/State/ZIP CodePhone Number [facility] [address] [facility] [address] [address], [place] * US CHEST WALL/SOFT TISSUE (05/20/2025 8:17 PM EDT)Anatomical RegionLaterality ModalityChestUltrasoundSpecimen (Source)Anatomical Location / Laterality Collection Method / VolumeCollection TimeReceived Time05/20/2025 8:17 PM EDT Impressions 05/20/2025 8:28 PM EDT IMPRESSION: The soft tissue of the right upper chest was scanned and imaged. ??No masses or fluid collection seen. Nursing Executive: CHICHIB ?? Transcribe Date/Time: May 20 2025 ??8:24P Dictated by : PORTIA HENSLEY MD This examination was interpreted and the report reviewed and electronically signed by: PORTIA HENSLEY MD on May 20 2025 ??8:26PM ??EST Narrative 05/20/2025 8:28 PM EDT * * *Final Report* * * DATE OF EXAM: May 20 2025 ??8:17PM ?? MAYDA ?? 1047 ??- ??US CHEST WALL/SOFT TISSUE ??/ PROCEDURE REASON: Other ? * * * * Physician Interpretation * * * * US CHEST WALL/SOFT TISSUE EXAM DATE/TIME: ??05/20/2025 8:17 PM CLINICAL HISTORY: Rule out abscess around the old port site. COMPARISON: None. TECHNIQUE: Sonography of the soft tissue of the right upper chest ??was performed. ??Images were obtained and stored in a permanent archive. FINDINGS AND Procedure Note Provider, [facility] [place] - 05/20/2025 * * *Final Report* * * DATE OF EXAM: May 20 2025 8:17PM [facility]DA 1047 - US CHEST WALL/SOFT TISSUE / PROCEDURE REASON: Other * * * * Physician Interpretation * * * * US CHEST WALL/SOFT TISSUE EXAM DATE/TIME: 05/20/2025 8:17 PM CLINICAL HISTORY: Rule out abscess around the old port site. COMPARISON: None. TECHNIQUE: Sonography of the soft tissue of the right upper chest was performed. Images were obtained and stored in a permanent archive. FINDINGS AND IMPRESSION IMPRESSION: The soft tissue of the right upper chest was scanned and imaged. No masses or fluid collection seen. Nursing Executive: [facility] Transcribe Date/Time: May 20 2025 8:24P Dictated by : PORTIA HENSLEY MD This examination was interpreted and the report reviewed and electronically signed by: PORTIA HENSLEY MD on May 20 2025 8:26PM EST Authorizing ProviderResult TypeResult StatusJennifer Donze-Filiatraut DOUS-PAMA Final Result * SEPSIS LACTATE W/ REFLEX (INITIAL) (05/20/2025 6:53 PM EDT) Only the most recent of2 resultswithin the time period is included. ComponentValueRef RangeTest MethodAnalysis TimePerformed AtPathologist Signature Sepsis Lactate1.4<=2.0 mmol/L05/20/2025 7:17 PM EDTLUTHERAN LABORATORYSpecimen (Source)Anatomical Location / LateralityCollection Method / VolumeCollection TimeReceived TimeBloodBLOOD SPECIMEN / UnknownVenipuncture / Elljkhs7605/20/2025 6:53 PM EDT05/20/2025 7:15 PM EDT Narrative Authorizing ProviderResult TypeResult StatusMami Mcadams DO LABORATORYFinal ResultPerforming OrganizationAddressCity/State/ZIP CodePhone Number [facility] [address] [address], * (ABNORMAL) HEMOGLOBIN A1C (05/06/2025 5:23 AM EDT)ComponentValueRef RangeTest MethodAnalysis TimePerformed AtPathologist SignatureHemoglobin A1C9.1(H)4.3 - 5.6 %05/06/2025 2:37 PM EDTCGLENBEIGH HOSPITAL LABComment:[place] Diabetes Association guidelines indicate that patients with HgbA1c in the range 5.7-6.4% are at increased risk for development of diabetes, and intervention by lifestyle modification may be beneficial. HgbA1c greater or equal to 6.5% is considered diagnostic of diabetes.Estimated Average Glucose 214mg/dL05/06/2025 2:[address] [facility]Comment:eAG: (Estimated average glucose) is a calculated value from HgbA1c and is product support representative of the average blood glucose level in the last 2-3 month period.Specimen (Source)Anatomical Location / LateralityCollection Method / VolumeCollection TimeReceived TimeBloodBLOOD SPECIMEN / UnknownVenipuncture / Atqkaen0405/06/2025 5:23 AM EDT05/06/2025 6:16 AM EDT Narrative Authorizing ProviderResult TypeResult StatusMaddi Goodson MDLABORATORYFinal ResultPerforming OrganizationAddressCity/State/ZIP CodePhone Number [facility] [address] [address], * (ABNORMAL) VANCOMYCIN (05/05/2025 4:27 PM EDT) Only the most recent of3 resultswithin the time period is included. ComponentValueRef RangeTest MethodAnalysis TimePerformed AtPathologist Signature Vancomycin5.7(L)10.0 - 20.0 ug/mL05/05/2025 4:52 PM EDTLUTHERAN LABORATORY Comment:Reference ranges and high/low indicator flags are provided as general guidelines only. The treatingphysician must determine appropriate target levels/dosing based on the specific clinical situation.Specimen (Source) Anatomical Location / LateralityCollection Method / VolumeCollection Time Received TimeBloodBLOOD SPECIMEN / UnknownVenipuncture / Zdlvcff7005/05/2025 4:27 PM EDT05/05/2025 4:35 PM EDT Narrative Authorizing ProviderResult TypeResult StatusAsadchancearturo Saulmari MDLABORATORYFinal ResultPerforming OrganizationAddressCity/State/ZIP CodePhone Number [facility] [address] [address], * BACTERIAL CULTURE, INTRAVASCULAR CATHETER TIP (05/03/2025 8:13 AM EDT) ComponentValueRef RangeTest MethodAnalysis TimePerformed AtPathologist SignatureCulture, Cath TipNo growth MINIMUM INHIBITORY CONCENTRATION(VITEK) 05/06/2025 4:53 PM EDMEM[facility] LABSpecimen (Source) Anatomical Location / LateralityCollection Method / VolumeCollection Time Received TimeImplant/Device/Foreign BodyELECTRONIC HARDWARE / UnknownNon Blood / Surwize3805/03/2025 8:13 AM EDT05/03/2025 9:04 AM EDT Narrative Authorizing ProviderResult TypeResult StatusMaddi Goodson MDMICROBIOLOGYFinal ResultPerforming OrganizationAddressCity/State/ZIP CodePhone Number [facility] [address] [place] [id number], [place] * BACTERIAL CULTURE, TISSUE AND WOUND, ANAEROBIC (05/03/2025 7:59 AM EDT) ComponentValueRef RangeTest MethodAnalysis TimePerformed AtPathologist SignatureCulture, AnaerobeNegative for anaerobes. MINIMUM INHIBITORY CONCENTRATION(VITEK) 05/09/2025 9:[address] [facility] LABSpecimen (Source) Anatomical Location / LateralityCollection Method / VolumeCollection Time Received TimeSwabELECTRONIC HARDWARE / Zouvcfd9105/03/2025 7:59 AM EDT05/03/2025 9:04 AM EDTComment:Pre-op diagnosis: Infection of venous access port, sequela [T80.219S] Narrative Authorizing ProviderResult TypeResult StatusStevtaqueria Garcia MDMICROBIOLOGY Final ResultPerforming OrganizationAddressCity/State/ZIP CodePhone Number [facility] [address] * Airway (05/03/2025 7:55 AM EDT) Narrative Eric Odonnell MD - 05/03/2025 7:55 AM EDT Eric Odonnell MD 05/03/2025 9:58 AM Airway General Information Procedure Start Time/Medication Administration: 05/03/2025 7:55 AM Procedure End Time: 05/03/2025 7:55 AM Patient location during procedure: OR Staffing Anesthesiologist: Eric Odonnell MD CAA: Ivy Albarado AA Performed by: KELLY Indications and Patient Condition Indications for airway management: anesthesia Preoxygenated: yes ? anesthesia circuit Method: sleep Difficult Mask: No Final Airway Details Final airway type: endotracheal airwayFinal Endotracheal Airway: ETT Cuffed: yes Successful intubation technique: direct laryngoscopy Devices used: Adelphic Mobile Endotracheal tube insertion site: oral Blade size: #3 ETT size (mm): 7.0 Measured from: lips Measurement (cm): 23 Placement verified by: chest auscultation and capnometry Cormack-Lehane Classification: grade I - full view of glottis Number of attempts at approach: 1 Airway not difficult Authorizing ProviderResult TypeResult StatusRichard Blas MDANESTHESIA ORDERABLESEdited Result - Final * CT CHEST W IVCON (05/01/2025 7:38 PM EDT)Anatomical RegionLateralityModality ChestComputed TomographySpecimen (Source)Anatomical Location / Laterality Collection Method / VolumeCollection TimeReceived Time05/01/2025 7:38 PM EDT Impressions 05/01/2025 9:10 PM EDT IMPRESSION: No CT evidence of acute abnormality. Atelectasis in the right lung. Left thyroid nodule. Nursing Executive: PSCB ?? Transcribe Date/Time: Apr ??2024 ??9:01P Dictated by : PORTIA HENSLEY MD This examination was interpreted and the report reviewed and electronically signed by: PORTIA HENSLEY MD on Apr ??2024 ??9:08PM ??EST Narrative 05/01/2025 9:10 PM EDT * * *Final Report* * * DATE OF EXAM: Apr ??2024 ??7:38PM ?? [facility] ?? 0539 ??- ??CT CHEST W IVCON ??/ PROCEDURE REASON: Post operative complication suspected ? * * * * Physician Interpretation * * * * EXAMINATION: ??CHEST CT WITH CONTRAST CLINICAL HISTORY: Postop complication. ??Recent port catheter placement. Technique: ??Spiral CT acquisition of the chest from the thoracic inlet to the upper abdomen following IV contrast. MQ: ??CTCW_6 Contrast: ??50 mL Omnipaque [address] Radiation dose: Integrated Dose-length product (DLP) for this visit = ?? 420 mGy*cm CT Dose Reduction Employed: Automated exposure control(AEC) and iterative recon Comparison: None. RESULT: Limitations: ??None. Lines, tubes, and devices: ??There is a right IJ approach port catheter in place, with tip extending to the cavoatrial junction. Lung parenchyma and airways: The central airways are patent. ??There is a triangular density in the right upper lobe, presumably representing atelectasis; otherwise the lungs are clear of consolidations. ??No suspicious lung nodules. ??No masses. Pleural space: ??No pleural effusions or pneumothorax. Lower neck, lymph nodes, and mediastinum: ??There is a 9 mm left thyroid nodule. ??No lymphadenopathy in the supraclavicular, axillary, mediastinal, or hilar regions. ??No pneumomediastinum or abnormal fluid collection seen. Heart, pericardium, and thoracic vessels: ??The thoracic aorta and main pulmonary artery are normal in caliber. The cardiac chambers are normal in size. No coronary artery atherosclerotic calcifications are noted, although the study is not optimized for coronary assessment. No pericardial effusion or thickening. Bones and soft tissues: ??Status post T7-T8 posterior spinal fusion. ??No destructive bone lesion. Chest wall soft tissue is unremarkable. Upper abdomen: ??Limited study through the upper abdomen demonstrates what appears to be hepatic steatosis. Localizer images: No additional findings. Procedure Note Provider, [facility] [place] - 05/01/2025 * * *Final Report* * * DATE OF EXAM: May 01 2025 7:38PM [facility] 0539 - CT CHEST W IVCON / PROCEDURE REASON: Post operative complication suspected * * * * Physician Interpretation * * * * EXAMINATION: CHEST CT WITH CONTRAST CLINICAL HISTORY: Postop complication. Recent port catheter placement. Technique: Spiral CT acquisition of the chest from the thoracic inlet to the upper abdomen following IV contrast. MQ: CTCW_6 Contrast: 50 mL Omnipaque [address] Radiation dose: Integrated Dose-length product (DLP) for this visit = 420 mGy*cm CT Dose Reduction Employed: Automated exposure control(AEC) and iterative recon Comparison: None. RESULT: Limitations: None. Lines, tubes, and devices: There is a right IJ approach port catheter in place, with tip extending to the cavoatrial junction. Lung parenchyma and airways: The central airways are patent. There is a triangular density in the right upper lobe, presumably representing atelectasis; otherwise the lungs are clear of consolidations. No suspicious lung nodules. No masses. Pleural space: No pleural effusions or pneumothorax. Lower neck, lymph nodes, and mediastinum: There is a 9 mm left thyroid nodule. No lymphadenopathy in the supraclavicular, axillary, mediastinal, or hilar regions. No pneumomediastinum or abnormal fluid collection seen. Heart, pericardium, and thoracic vessels: The thoracic aorta and main pulmonary artery are normal in caliber. The cardiac chambers are normal in size. No coronary artery atherosclerotic calcifications are noted, although the study is not optimized for coronary assessment. No pericardial effusion or thickening. Bones and soft tissues: Status post T7-T8 posterior spinal fusion. No destructive bone lesion. Chest wall soft tissue is unremarkable. Upper abdomen: Limited study through the upper abdomen demonstrates what appears to be hepatic steatosis. Localizer images: No additional findings. IMPRESSION IMPRESSION: No CT evidence of acute abnormality. Atelectasis in the right lung. Left thyroid nodule. Nursing Executive: JACINDA Transcribe Date/Time: May 01 2025 9:01P Dictated by : PORTIA HENSLEY MD This examination was interpreted and the report reviewed and electronically signed by: PORTIA HENSLEY MD on May 01 2025 9:08PM EST Authorizing ProviderResult TypeResult StatusCharles Luis Bishop DOCT-PAMAFinal Result * POTASSIUM (05/01/2025 6:40 PM EDT)ComponentValueRef RangeTest MethodAnalysis TimePerformed AtPathologist SignaturePotassium3.83.7 - 5.1 mmol/L05/01/2025 7:03 PM EDTLUTHERAN LABORATORYSpecimen (Source)Anatomical Location / LateralityCollection Method / VolumeCollection TimeReceived TimeBloodBLOOD SPECIMEN / UnknownVenipuncture / Tcrhsni5005/01/2025 6:40 PM EDT05/01/2025 6:45 PM EDT Narrative Authorizing ProviderResult TypeResult StatusAlfredo Bishop DOLABORATORYFinal ResultPerforming OrganizationAddressty/State/ZIP Code[place] [address], * HEPATIC FUNCTION PNL (05/01/2025 6:40 PM EDT)ComponentValueRef RangeTest MethodAnalysis TimePerformed AtPathologist SignatureAlbumin4.13.9 - 4.9 g/dL 05/01/2025 7:03 PM EDTLUTHERAN LABORATORYBilirubin, Total0.30.2 - 1.3 mg/dL 05/01/2025 7:03 PM EDTLUTHERAN LABORATORYBilirubin, Direct0.1<0.3 mg/dL 05/01/2025 7:03 PM EDTLUTHERAN LABORATORYAlkaline Kbuntfwcuie1575 - 123 U/L 05/01/2025 7:03 PM EDTLUTHERAN IRRUZFQWBNEPX2429 - 35 U/L05/01/2025 7:03 PM EDTLUTHERAN OLUTIWARDMRJB602 - 38 U/L05/01/2025 7:03 PM EDTLUTHERAN LAB[facility]ATORY Protein, Total6.66.3 - 8.0 g/dL05/01/2025 7:03 PM EDTLUTHERAN LABORATORY Specimen (Source)Anatomical Location / LateralityCollection Method / Volume Collection TimeReceived TimeBloodBLOOD SPECIMEN / UnknownVenipuncture / Vawujux7405/01/2025 6:40 PM EDT05/01/2025 6:45 PM EDT Narrative Authorizing ProviderResult TypeResult StatusChachristian Bishop DOLABORATORYFinal ResultPerforming OrganizationAddKind[facility]/State/ZIP CodePhone [place] [address], * BETA HCG, QUANTITATIVE FOR ED (05/01/2025 6:27 PM EDT)ComponentValueRef Range Test MethodAnalysis TimePerformed AtPathologist SignatureBeta HCG, Quantitative For ED Use<0.6<5.0 mIU/mL05/01/2025 7:17 PM EDTLUTHERAN LABORATORYComment:NegativeSpecimen (Source)Anatomical Location / Laterality Collection Method / VolumeCollection TimeReceived TimeBloodBLOOD SPECIMEN / UnknownVenipuncture / Slthgjx9405/01/2025 6:27 PM EDT05/01/2025 6:34 PM EDT Narrative Authorizing ProviderResult TypeResult StatusChachristian Bishop DOLABORATORYFinal ResultPerforming OrganizationAddressCity/State/ZIP CodePhone Number [facility] [address] [place] [address], * IR PORTOCATH PLACEMENT (04/29/2025 1:18 PM EDT)Anatomical RegionLaterality ModalityOtherSpecimen (Source)Anatomical Location / LateralityCollection Method / VolumeCollection TimeReceived Time04/29/2025 1:18 PM EDT Impressions 04/29/2025 3:57 PM EDT IMPRESSION: INSERTION OF RIGHT-SIDED POWER-INJECTABLE SINGLE-LUMEN TUNNELED CHEST PORT, WITH CATHETER TIP IN THE EXPECTED LOCATION OF THE RIGHT ATRIUM. PLAN: THE PORT MAY BE USED IMMEDIATELY. RECOMMEND NORMAL SALINE FLUSH INTERVAL OF 90 DAYS WHEN NOT BEING USED. Patient with high tolerance to moderate sedation agents including Versed and Dilaudid and history of anxiety/ PTSD. Despite continuous moderate sedation which started much earlier before actual procedure, adequate relaxation and comfort for patient could not be achieved. Consulting anesthesia team for future procedures is recommended. Nursing Executive: JACINDA ?? Transcribe Date/Time: Apr ??2024 ??3:41P Dictated by : HARI VELÁSQUEZ MD This examination was interpreted and the report reviewed and electronically signed by: HARI VELÁSQUEZ MD on Apr ??2024 ??3:55PM ??EST Narrative 04/29/2025 3:57 PM EDT * * *Final Report* * * DATE OF EXAM: Apr ??2024 ??1:18PM ?? [facility] ?? 0792 ??- ??IR PORTOCATH PLACEMENT ??/ PROCEDURE REASON: M32.9-Systemic lupus erythematosus, unspecified SLE type, unspecified organ invo ? * * * * Physician Interpretation * * * * PROCEDURE: VENOUS PORT PLACEMENT Procedural Personnel Attending physician(s): Hari Velásquez M.D. Fellow physician(s): None Resident physician(s): None Advanced practice provider(s): ??None Medical Student(s): None Pre-procedure diagnosis: Systemic lupus erythematosus, Poor IV access Post-procedure diagnosis: Same Indication: Monthly IV infusions monthly IV infusions, frequent blood work Administration of chemotherapy ? Additional clinical history: None PROCEDURE SUMMARY: - Venous access with ultrasound guidance - Tunneled port insertion under fluoroscopic guidance - Additional procedure(s): None PROCEDURE DETAILS: Pre-procedure History and imaging of central venous access reviewed (QCDR): Yes Consent: Risks, benefits, treatment options, potential complications and personnel to be involved were discussed (including the risks of radiation exposure, contrast and anesthesia administration, and any equipment needed for the procedure to ensure best possible outcome) with the patient and all questions were answered and consent was obtained prior to procedure. Transfusion of blood products: No Medication reconciliation: The patient's medications and allergies were reviewed in the electronic medical record and reconciled to the proposed procedure/treatment. Camille-procedure discussion: The appropriate elements of the pre-procedure discussion, safety check list and sign-out were performed. Time out: A time out was performed immediately prior to procedure start with the nursing and interventional team, correctly identifying the name, date of , procedure, anatomy (including marking of site and side if applicable), patient position, procedure consent form, relevant diagnostic and radiology test results, antibiotic administration if applicable, safety precautions, and procedure-specific equipment needs. Start of procedure: 1227 End of procedure: 1318 Patient position: ??Supine Antibiotics: Cefazolin Antibiotic infusion start time: 12:07 PM Prophylactic antibiotic administered: Within 1 hour of procedure start time or 2 hours for vancomycin or fluoroquinolones Preparation (MIPS): The site was prepared and draped using all elements of maximal sterile barrier technique including sterile gloves, sterile gown, cap, mask, large sterile sheet, sterile ultrasound probe cover, hand hygiene and cutaneous antisepsis with 2% chlorhexidine. Medical reason for site preparation exception (MIPS): Not applicable Contrast FLUOROSCOPY imaging was performed after administration of contrast ml of . FLUOROSCOPIC RADIATION SUMMARY: Plane A, Air Kerma: ??7.0 mGy Dose Area Product (DAP): Fluoro Time: ??1:12 min:sec Radiation dose exceed 5 Gy: No If radiation dose exceeded 5 Gy, was counseling and instructional brochure provided: ??N/A Anesthesia/sedation Level of anesthesia/sedation: Moderate sedation (conscious sedation) Anesthesia/sedation administered by: Independent trained observer under attending supervision with continuous monitoring of the patient?s level of consciousness and physiologic status Total intra-service sedation time (minutes): 48 Local anesthesia: 2 % lidocaine Access Local anesthesia was administered. The vessel was sonographically evaluated and determined to be patent. Real time ultrasound was used to visualize needle entry into the vessel and a permanent image was stored. Vein accessed: Internal jugular vein Access technique: Micropuncture set with 21 gauge needle Venography Indication for venography: Not performed Vein catheterized: Not applicable Findings: Not applicable Port placement An incision was made at the upper chest, a pocket was created, and the catheter was tunneled subcutaneously to the venous access site and trimmed to appropriate length. The port was inserted into the pocket and the catheter was advanced via a peel-away sheath into the vein under fluoroscopic guidance. The port was sutured into the pocket using absorbable suture. Catheter tip location was fluoroscopically verified and a permanent image was stored. Port placed: 8 F BARD Vaccess PowerPort with pressure injectable Plastic port. Catheter tip position: Right atrium Unique Device Identifier: Not available Catheter flush: Normal saline Closure The access site and incision were closed and sterile dressing(s) were applied. Access site closure technique: Absorbable suture and tissue adhesive and a steri strip Incision closure technique: Absorbable suture and tissue adhesiveand a steri strip Patient discharged from procedure suite with device accessed: No Additional Details Additional description of procedure: None Equipment details: None Specimens removed: None Estimated blood loss (mL): Less than 10 Standardized report: [id number] The patient tolerated the procedure well. The patient was comfortable and was transferred to the recovery room in stable condition. Complications There were no immediate complications and no other complications. Attestation Signer name: Hari Velásquez MD I attest that I was present for the entire procedure. I reviewed the stored images and agree with the report as written. Authorizing ProviderResult TypeResult StatusEmradha Lanza DOINTERVENTIONAL RADIOLOGYFinal Result * VASCULAR ACCESS TEAM US GUIDED PERIPHERAL IV PLACEMENT (04/29/2025 10:32 AM EDT)Anatomical RegionLateralityModalityUltrasound Narrative 04/29/2025 10:32 AM EDT Juliocesar Ocampo RN 04/29/2025 10:33 AM Inserted 20 gauge 2.25 Accu-cath into right forearm vein with ultrasound per Juliocesar Ocampo RN. Brisk blood return noted and blue top blood tube collected, flushed with 10 ml of normal saline without complications. Transparent semi-permeable dressing applied with identification and date marked. All patient questions answered at this time. Flowsheet and bedside RN updated. Please page with any questions. Juliocesar Ocampo RN Vascular Access Team Pager: [phone] Authorizing ProviderResult TypeResult StatusKayla Eeg [id number] Result * PROTHROMBIN TIME (04/29/2025 10:32 AM EDT) Only the most recent of2 resultswithin the time period is included. ComponentValueRef RangeTest MethodAnalysis TimePerformed AtPathologist Signature PT Sec10.99.7 - 13.0 sec04/29/2025 11:[address] [facility] INR1.00.9 - 1.309 11:[address] LABComment: Vitamin K Antagonist (VKA) Therapeutic Range: INR 2 to 3 (Target INR of 2.5) Note: For patients treated with VKA drugs, such as warfarin, the [place] [employer] 2012 Guideline recommends a therapeutic INR range of 2 to 3 (target INR of 2.5). This recommendation includes high-risk patients with antiphospholipid syndrome with previous arterial or venous thromboembolism, current-generation mechanical or bioprosthetic aortic heart valve replacement. Note: Patients with mechanical aortic valve replacement and additional risk factors for thromboembolic events (atrial fibrillation, previous thromboembolism, LV dysfunction, hypercoagulable conditions) or an older generation mechanical AVR (i.e., ball in-Cage) or any mechanical MVR should have a INR therapeutic range of 2.5 to 3.5 (target INR of 3). Yi LAIRD, et al. Chest 2012, 141:7S-47S Francois RA, et al. JACC 2017, 70: 252-289 Specimen (Source)Anatomical Location / LateralityCollection Method / Volume Collection TimeReceived TimeBloodBLOOD SPECIMEN / UnknownVenipuncture / Unknown 04/29/2025 10:32 AM EDT04/29/2025 10:42 AM EDT Narrative Authorizing ProviderResult TypeResult StatusCarlosjose Agarwal CNPLABORATORY Final ResultPerforming OrganizationAddressCity/State/ZIP CodePhone Number [facility] [address] [place] [address], * (ABNORMAL) ALBUMIN/CREATININE RATIO, URINE (04/28/2025 11:35 AM EDT)Component ValueRef RangeTest MethodAnalysis TimePerformed AtPathologist Signature Creatinine, Ur Random (UCRR)65.620.0 - 300.0 mg/dL04/29/2025 1:16 PM EDT [facility] LABAlbumin, Urine Wonydq20.2mg/L04/29/2025 1:[address] [facility] LABAlbumin/Creat Wmgpa612(H)<30 mg/g 04/29/2025 1:[address] LABComment: Adult Male and Female Nephrotic Criteria: <30 mg/g is considered normal to mildly increased 30-300 mg/g is considered moderately increased >300 mg/g is considered severely increased KDIGO. (2013). KDIGO 2012 Clinical Practice Guideline for the Evaluation and Management of Chronic Kidney Disease. Official Journal of the International Society of Nephrology, 3(1), 1-150. Specimen (Source)Anatomical Location / LateralityCollection Method / Volume Collection TimeReceived TimeUrineURINE SPECIMEN / UnknownNon Blood / Unknown 04/28/2025 11:35 AM EDT04/28/2025 11:36 AM EDT Narrative Authorizing ProviderResult TypeResult StatusKasia Lam MDLABORATORY Final ResultPerforming OrganizationAddressCity/State/ZIP CodePhone Number [facility] [address] [place] [address], * INSULINOMA ASSOCIATED ANTIBODY 2 (04/28/2025 11:32 AM EDT)ComponentValueRef RangeTest MethodAnalysis TimePerformed AtPathologist SignatureInsulinoma Assoc Ab 2, Blood<5.4<7.5 U/mL05/05/2025 10:[address] LABComment:Anti-insulinoma associated antigen 2 (IA-2) antibody test is used as an aid in diagnosis of type I diabetes mellitus, to predict the risk of progression to type I diabetes mellitus among susceptible individuals, and to predict the necessity of insulin therapy in adult-onset diabetes mellitus. Clinical correlation is required.Specimen (Source)Anatomical Location / LateralityCollection Method / VolumeCollection TimeReceived TimeBloodBLOOD SPECIMEN / UnknownVenipuncture / Zbgpvvi8604/28/2025 11:32 AM EDT04/28/2025 11:34 AM EDT Narrative Authorizing ProviderResult TypeResult StatusaKsia Lam MDLABORATORY Final ResultPerforming OrganizationAddressCity/State/ZIP CodePhone Number [facility] [address] [place] [id number], [place] * TESTOSTERONE, TOTAL, BY MS (ADULT FEMALES, CHILDREN, OR INDIVIDUALS ON TESTOSTERONE-SUPPRESSING HORMONE THERAPY) (04/28/2025 11:32 AM EDT)Component ValueRef RangeTest MethodAnalysis TimePerformed AtPathologist Signature Testosterone, Total by MS21.48.0 - 60.0 ng/dL05/02/2025 8:[address]: Testing performed by Liquid Chromatography-Tandem Mass Spectrometry (LC-MS/MS). This test was developed, and its performance characteristics determined by the [facility] Department of Pathology and Laboratory Medicine. It has not been cleared or approved by the FDA. The [facility] Department of Pathology and Laboratory Medicine is regulated under CLIA as qualified to perform high-complexity testing. This test is used for clinical purposes. It should not be regarded as investigational or for research. Specimen (Source)Anatomical Location / LateralityCollection Method / Volume Collection TimeReceived TimeBloodBLOOD SPECIMEN / UnknownVenipuncture / Unknown 04/28/2025 11:32 AM EDT04/28/2025 11:34 AM EDT Narrative Authorizing ProviderResult TypeResult StatusKasia Lam MDLABORATORY Final ResultPerforming OrganizationAddressCity/State/ZIP CodePhone Number [facility] [address] [phone], [place] * ZINC TRANSPORTER 8 ANTIBODY (04/28/2025 11:32 AM EDT)ComponentValueRef Range Test MethodAnalysis TimePerformed AtPathologist SignatureZinc Transporter 8 Antibody<10.00.0 - 15.0 U/mL05/04/2025 2:42 PM EDTARUP LABORATORIESComment: INTERPRETIVE INFORMATION: Zinc Transporter 8 Antibody A value greater than 15.0 Kronus Units/mL is considered positive for the Zinc Transporter 8 Antibody (ZnT8). Kronus Units are arbitrary. Kronus Units = U/mL. This assay is intended for the semi-quantitative determination of antibodies to ZnT8 in human serum. Results should be interpreted within the context of clinical symptoms. Performed By: [facility] [address] [place] [address] Zipper Cutter: Dustin Nava MD, PhD CLIA Number: [id number] Specimen (Source)Anatomical Location / LateralityCollection Method / Volume Collection TimeReceived TimeBloodBLOOD SPECIMEN / UnknownVenipuncture / Unknown 04/28/2025 11:32 AM EDT04/28/2025 11:34 AM EDT Narrative Authorizing ProviderResult TypeResult StatusKasia Lam MDLABORATORY Final ResultPerforming OrganizationAddressCity/State/ZIP CodePhone Number [address] [address] * INSULIN ANTIBODY BLD (04/28/2025 11:32 AM EDT)ComponentValueRef RangeTest MethodAnalysis TimePerformed AtPathologist SignatureInsulin Antibody, Qual HegluhacMdkhbquf85/09/2025 10:23 AM EDTCGLENBEIGH HOSPITAL LABInsulin Antibody<0.4<0.4 U/mL05/03/2025 10:[address] [facility] Comment:Anti-insulin antibody test is used as an aid in diagnosis and prognosis of autoimmune diabetes mellitus in combination with other tests such as anti-GAD65 and anti-IA-2 antibody. A single negative result cannot rule out autoimmune diabetes mellitus. The test is not reliable in patients who had previously received exogenous insulin. Clinical correlation is required. Specimen (Source)Anatomical Location / LateralityCollection Method / Volume Collection TimeReceived TimeBloodBLOOD SPECIMEN / UnknownVenipuncture / Stowhwv4204/28/2025 11:32 AM EDT04/28/2025 11:34 AM EDT Narrative Authorizing ProviderResult TypeResult StatusKasia Lam MDLABORATORY Final ResultPerforming OrganizationAddressCity/State/ZIP CodePhone Number [facility] [address] [phone], * GLUTAMIC AC DECARBOXYLASE AB (04/28/2025 11:32 AM EDT)ComponentValueRef Range Test MethodAnalysis TimePerformed AtPathologist SignatureGlutamic Acid Decarboxylas Ab AojfaiywcjpIraexvttUiacnuid68/05/2025 2:[address] [facility] LABGlutamic Acid Decarboxylase Ab<5.0<=5.0 IU/mL04/29/2025 2:[address] [facility] LABComment:Anti-glutamic acid decarboxylase antibody (GAD65) test usually in conjunction with another test such as IA-2 antibody is used as an aid in establishing the autoimmune nature of previously-diagnosed type I diabetes mellitus or in predicting of progression to type I diabetes mellitus in patients withcertain autoimmune diseases including autoimmune gastritis among others. It is also used as an aid in diagnosis of stiff person syndrome and certain autoimmune nervous system diseases. Clinical correlation is required.Specimen (Source)Anatomical Location / LateralityCollection Method / VolumeCollection TimeReceived Time BloodBLOOD SPECIMEN / UnknownVenipuncture / Ayjxwet3104/28/2025 11:32 AM EDT 04/28/2025 11:34 AM EDT Narrative Authorizing ProviderResult TypeResult StatusKasia Lam MDLABORATORY Final ResultPerforming OrganizationAddressCity/State/ZIP CodePhone Number [facility] [address] [facility] [place] [phone], [place] * (ABNORMAL) GLUCOSE, FASTING (04/28/2025 11:32 AM EDT)ComponentValueRef Range Test MethodAnalysis TimePerformed AtPathologist SignatureGlucose, Yuljnon854 (H)74 - 99 mg/dL04/28/2025 9:[address] [facility] LABComment: [place] Diabetes Association guidelines state that a diabetes mellitus diagnosis is preliminarily made when the fasting plasma glucose meets or exceeds 126 mg/dL. In the absence of unequivocal hyperglycemia, results should be confirmed with repeat testing. Patients are at increased risk for diabetes mellitus (prediabetes) when the fasting glucose is 100 to 125 mg/dL.Specimen (Source)Anatomical Location / LateralityCollection Method / VolumeCollection TimeReceived TimeBloodBLOOD SPECIMEN / UnknownVenipuncture / Swhgtys6004/28/2025 11:32 AM EDT04/28/2025 11:34 AM EDT Narrative Authorizing ProviderResult TypeResult Jo Lam MDLABORATORY Final ResultPerforming OrganizationAddressCity/State/ZIP CodePhone Number [facility] [address] [place] [address], [place] * THYROID STIMULATING HORMONE (04/28/2025 11:32 AM EDT)ComponentValueRef Range Test MethodAnalysis TimePerformed AtPathologist SignatureTSH1.8800.270 - 4.200 mIU/L04/29/2025 1:43 PM EDTCGLENBEIGH HOSPITAL LABComment: If the patient is , TSH reference range varies by gestational period: First Trimester (weeks 9-12): 0.180-2.990 mIU/L Second Trimester: 0.110-3.980 mIU/L Third Trimester: 0.480-4.710 mIU/L Abran Theodore et al. A Practical Approach for the Verifications and Determination of Site- and Trimester-Specific Reference Intervals for Thyroid Function tests in . Thyroid, 2019:29:3:412-420.Rene Gonzalez, et al. 2017 Guidelines of the [place] Thyroid Association for the Diagnosis and Management of Thyroid Disease during and the . Thyroid, 2017:27:3:315-389. Specimen (Source)Anatomical Location / LateralityCollection Method / Volume Collection TimeReceived TimeBloodBLOOD SPECIMEN / UnknownVenipuncture / Unknown 04/28/2025 11:32 AM EDT04/28/2025 11:34 AM EDT Narrative Authorizing ProviderResult TypeResult Jo Lam MDLABORATORY Final ResultPerforming OrganizationAddressCity/State/ZIP CodePhone Number [facility] [address] [place] [address], [place] * (ABNORMAL) LIPID PANEL, FASTING (04/28/2025 11:32 AM EDT)ComponentValueRef RangeTest MethodAnalysis TimePerformed AtPathologist SignatureCholesterol, Vuddk514(H)<200 mg/dL04/29/2025 1:[address] [facility] Comment: <200 mg/dL, Desirable 200-239 mg/dL, Borderline high >239 mg/dL, High Wnfprkihdxam587(H)<150 mg/dL04/29/2025 1:[address] [facility] LABComment: <150 mg/dL, Normal 150-199 mg/dL, Borderline high 200-499 mg/dL, High >499 mg/dL, Very high HDL Uqsjasgdthp90(L)>39 mg/dL04/29/2025 1:[address] [facility] LABComment: 40-59 mg/dL, Acceptable >59 mg/dL, High: Negative risk factor for coronary heart disease <40 mg/dL, Low: Positive risk factor for coronary heart disease LDL Cholesterol, Wnebmoztoh377(H)<100 mg/dL04/29/2025 1:[address] [facility] LABComment: <100 mg/dL, Optimal 100-129 mg/dL, Near optimal/above optimal 130-159 mg/dL, Borderline high 160-189 mg/dL, High >189 mg/dL, Very high Secondary prevention optimal LDL Cholesterol levels are recommended to be <70 mg/dL LDL cholesterol is calculated using the Frausto-NIH equation. Non HDL Mdwmuotvdfa787(H)<130 mg/dL04/29/2025 1:[address] [facility] LABComment: <130 mg/dL, Optimal 130-159 mg/dL, Near optimal/above optimal 160-189 mg/dL, Borderline high 190-219 mg/dL, High >219 mg/dL, Very high Secondary prevention optimal non HDL Cholesterol levels are recommended to be <100 mg/dL VLDL Dyxdxcfswzn48(H)<30 mg/dL04/29/2025 1:[address] [facility] LABTC:HDL Ratio8.88(H)<5.1009 1:[address] [facility] LABLDL:HDL Ratio5.53(H)<2.54004/29/2025 1:[address] [facility] LABComment: Reference: 1. National Cholesterol Education Program ATP III Guideline At-A-Glance Quick Desk Reference: National Heart, Lung, and Blood [place]. National Institutes of Health. 2001: NIH Publication No. 01-3305. 2. An International Atherosclerosis Society position paper: global recommendations for the management of dyslipidemia: executive summary, Atherosclerosis. 2014: 232(2):410-413. Fasting Bfra84zsh09/05/2025 1:31 PM EDTCGLENBEIGH HOSPITAL LABSpecimen (Source)Anatomical Location / LateralityCollection Method / VolumeCollection TimeReceived TimeBloodBLOOD SPECIMEN / UnknownVenipuncture / Mufvqzs3704/28/2025 11:32 AM EDT04/28/2025 11:34 AM EDT Narrative Authorizing ProviderResult TypeResult StatusKasia Lam MDLABORATORY Final ResultPerforming OrganizationAddressCity/State/ZIP CodePhone Number [facility] [address] [facility] [address] * ISLET CELL AB (04/28/2025 11:32 AM EDT)ComponentValueRef RangeTest Method Analysis TimePerformed AtPathologist SignatureIslet Cell Ab<1:4<1:409/01/2025 7:31 PM EDTARUP LABORATORIESComment: INTERPRETIVE INFORMATION: Islet Cell Ab, IgG Islet cell antibodies (ICAs) are associated with type 1 diabetes (TID), an autoimmune endocrine disorder. ICAs may be present years before the onset of clinical symptoms. To calculate Juvenile Diabetes Foundation (JDF) units: multiply the titer x 5 (1:8 ??8 x 5 = 40 JDF Units). This test was developed and its performance characteristics determined by [facility]. It has not been cleared or approved by the [place] Food and Drug Administration. This test was performed in a CLIA certified laboratory and is intended for clinical purposes. Performed By: [facility] [address] [place] [address] Zipper Cutter: Dustin Nava MD, PhD CLIA Number: [id number] Specimen (Source)Anatomical Location / LateralityCollection Method / Volume Collection TimeReceived TimeBloodBLOOD SPECIMEN / UnknownVenipuncture / Unknown 04/28/2025 11:32 AM EDT04/28/2025 11:34 AM EDT Narrative Authorizing ProviderResult TypeResult StatusKasia Lam MDLABORATORY Final ResultPerforming OrganizationAddressCity/State/ZIP CodePhone Number [address] [address] * HYDROXYPROGESTERONE-17 (04/28/2025 11:32 AM EDT)ComponentValueRef RangeTest MethodAnalysis TimePerformed AtPathologist GofsteqxqAUDTLCWGKUURCOVCWLU48.50 <=206.00 ng/dL2025 1:42 PM EDTARUP LABORATORIESComment: INTERPRETIVE INFORMATION for 17-Hydroxyprogesterone in females: Follicular ?15 to 70 ng/dL Luteal ?35 to 290 ng/dL REFERENCE INTERVAL: 17-Hydroxyprogesterone Qnt, HPLC-MS/MS Access complete set of age- and/or gender-specific reference intervals for this test in the [facility] Test Directory ([place]). This test was developed and its performance characteristics determined by [facility]. It has not been cleared or approved by the [place] Food and Drug Administration. This test was performed in a CLIA certified laboratory and is intended for clinical purposes. Performed By: [facility] [address] [place] [address] Zipper Cutter: Dustin Nava MD, PhD CLIA Number: [id number] Specimen (Source)Anatomical Location / LateralityCollection Method / Volume Collection TimeReceived TimeBloodBLOOD SPECIMEN / UnknownVenipuncture / Unknown 04/28/2025 11:32 AM EDT04/28/2025 11:34 AM EDT Narrative Authorizing ProviderResult TypeResult StatusKasia aLm MDLABORATORY Final ResultPerforming OrganizationAddressty/State/ZIP CodePhone Number [address] [address] * DHEA-S BLD (04/28/2025 11:32 AM EDT)ComponentValueRef RangeTest MethodAnalysis TimePerformed AtPathologist SignatureDHEA-S214.798.8 - 340.0 ug/dL04/29/2025 1:43 PM EDMEMORIAL [facility] LABComment: Reference ranges are age and gender specific. For additional information, reference range tables can be found in the laboratory test directory. The normal values are based on the following source: Dehydroepiandrosterone sulfate (DHEA S) [package insert V 17.0 Tajik]. [facility], [place], [place]: March 2013. Specimen (Source)Anatomical Location / LateralityCollection Method / Volume Collection TimeReceived TimeBloodBLOOD SPECIMEN / UnknownVenipuncture / Unknown 04/28/2025 11:32 AM EDT04/28/2025 11:34 AM EDT Narrative Authorizing ProviderResult TypeResult Jo Lam MDLABORATORY Final ResultPerforming OrganizationAddressCity/State/ZIP CodePhone Number [facility] [place] [address], * (ABNORMAL) C-PEPTIDE BLD (04/28/2025 11:32 AM EDT)ComponentValueRef RangeTest MethodAnalysis TimePerformed AtPathologist SignatureC-Peptide6.0(H)1.1 - 4.4 ng/mL04/29/2025 9:[address] LABSpecimen (Source) Anatomical Location / LateralityCollection Method / VolumeCollection Time Received TimeBloodBLOOD SPECIMEN / UnknownVenipuncture / Uenxbgv5904/28/2025 11:32 AM EDT04/28/2025 11:34 AM EDT Narrative Authorizing ProviderResult TypeResult StatusKasia Lam MDLABORATORY Final ResultPerforming OrganizationAddressty/State/ZIP CodePhone Number [facility] [address] [place] [address], * ANDROSTENEDIONE BLD (04/28/2025 11:32 AM EDT)ComponentValueRef RangeTest MethodAnalysis TimePerformed AtPathologist SignatureAndrostenedione1.0<1.6 ng/mL04/29/2025 9:[address] [facility] LABComment:The reference interval in post-menopausal women is <1.2 ng/mL.Specimen (Source) Anatomical Location / LateralityCollection Method / VolumeCollection Time Received TimeBloodBLOOD SPECIMEN / UnknownVenipuncture / Naqofke3904/28/2025 11:32 AM EDT04/28/2025 11:34 AM EDT Narrative Authorizing ProviderResult TypeResult StatusKasia Lam MDLABORATORY Final ResultPerforming OrganizationAddressCity/State/ZIP CodePhone Number [facility] [address] [place] [address] [address] [place] [address], * (ABNORMAL) HEMOGLOBIN A1C (POC) (04/27/2025 1:41 PM EDT)ComponentValueRef RangeTest MethodAnalysis TimePerformed AtPathologist SignatureHemoglobin A1C (POCT)10.4(A)4.3 - 5.6 %[facility]Comment: Location:[facility], [address] [place] [address], [facility] Point of care (POC) Hemoglobin A1c (HGBA1C) testing is intended to assess glucose control and provide a management tool for patients known to have diabetes and their healthcare providers. ??Target HGBA1C levels may depend on specific clinical circumstances. ??POC HGBA1C is not intended for use as a diagnostic or screening test; laboratory-based testing should be used for diagnostic purposes. ??The following information is supplemental and may not be applicable to specific diabetes management situations: ??The POC device nuclear waste management engineer provides a normal range of 4.2% to 6.5% for the HGBA1C POC test. However, the [place] Diabetes Association ??guidelines indicate that patients with HGBA1C in the range of 5.7% to 6.4% are at increased risk for development of diabetes and that intervention by lifestyle modification may be beneficial. ??A HGBA1C level greater than or equal to 6.5% is considered diagnostic of diabetes, pending confirmatory testing. ??Use of HGBA1C testing to evaluate glucose control may not be appropriate for patients with hemoglobin variants or other conditions (e.g. anemia) that alter red blood cell lifespan. Specimen (Source)Anatomical Location / LateralityCollection Method / Volume Collection TimeReceived Time04/27/2025 1:41 PM EDT Narrative Authorizing ProviderResult TypeResult StatusCcf ProviderPOC TESTINGFinal Result Performing OrganizationAddressCity/State/ZIP CodePhone Number [facility] POINT OF CARE [facility] [address] [place], [place] * ENDOMETRIOSIS U/S WHI (04/14/2025 12:55 PM EDT)Anatomical RegionLaterality ModalityOtherSpecimen (Source)Anatomical Location / LateralityCollection Method / VolumeCollection TimeReceived Time04/14/2025 12:55 PM EDT Narrative 04/14/2025 2:52 PM EDT Indication Pelvic pain Impression 1. Normal appearing anteverted uterus that measures 86 mm x 34 mm x 46 mm. 2. Both ovaries contain multiple small follicular cysts at the periphery of the ovarian stroma. This finding is suggestive of polycystic ovarian syndrome. 3. The left ovary measures 46 mm x 33 mm x 35 mm, and contains a 31 mm x 29 mm x 27 mm unilocular simple cyst (O-RADS 2) O-RADS 2 ovarian simple cyst, almost certainly benign. No follow up imaging is needed. 4. No adnexal masses were observed. 5. There is no free fluid visualized in the peritoneal cavity. 6. 3D rendering of the uterus confirms the proper location of the IUD within the endometrial cavity. 7. Focused transvaginal ultrasound with sliding sign evaluation. Anterior compartment: normal bladder, no adhesions along vesicouterine reflexion. Posterior compartment: No lesions along rectovaginal septum or within anterior rectal wall. The posterior uterus and cervix are free from any adhesions to the surrounding bowel. There is thickening of the uterosacral ligament. Adnexa: Both ovaries are lateral and separate from the uterus. No obvious adhesions are appreciated between the right ovary and the pelvic side wall. The left ovary is adherent to the pelvis side wall. Recommendations Consider MRI of pelvis to further evaluate patient's symptoms, ultrasound findings and evaluate for possible deep infiltrating endometriosis. Menstrual History Contraception: Intrauterine contraceptive device Method Transabdominal and transvaginal ultrasound examination, 3D ultrasound examination, Color Doppler examination Uterus Uterus position: anteverted Description of uterine malformations: normally shaped Myometrium: normal Endometrium: normal Uterus length 86 mm Uterus width 46 mm Uterus height 34 mm Uterus Vol 68.7 cm?? Endometrial thickness, total 7.4 mm IUCD Position control IUCD type: Liletta. Location: positioned correctly at the fundus of the uterus Right Ovary Rt ovary: Visualized Rt ovary morphology: premenopausal polycystic Rt ovary D1 39 mm Rt ovary D2 21 mm Rt ovary D3 27 mm Rt ovary Vol 11.6 cm?? Left Ovary Lt ovary: Visualized Lt ovary morphology: premenopausal polycystic Lt ovary D1 46 mm Lt ovary D2 33 mm Lt ovary D3 35 mm Lt ovary Vol 27.8 cm?? Lt ovarian cyst(s): Cysts identified Lt ovarian cyst D1 31 mm Lt ovarian cyst D2 29 mm Lt ovarian cyst D3 27 mm Lt ovarian cyst mean 29.0 mm Lt ovarian cyst vol 12.709 cm?? Lt ovarian cyst findings: Unilocular simple cyst [place] Sac no free fluid visualized Procedure To characterize the IUD location, three dimensional imaging was created on a dedicated stand-alone 3D workstation with images created and archived, and supervised and reviewed by the interpreting physician utilizing images from an ultrasound scan performed today. Performed By: Jocy Dewey RDMS Read By: Shailesh Regalado M.D. Authorizing ProviderResult TypeResult StatusSharowes Douglas MDWCOX WALNUT LAWNDebi HEALTHFinal Result * (ABNORMAL) PAP TEST (04/13/2025 10:36 AM EDT)ComponentValueRef RangeTest MethodAnalysis TimePerformed AtPathologist SignatureCase ReportGynecologic Cytology Report ? Case: [id number] ? Authorizing Provider: ??Faye Douglas MD ?Collected: ? 04/13/2025 10:36 AM ? Ordering Location: ? Obstetrics/Gynecology ?Received: ?04/14/2025 06:01 AM ? First Screen: ?Dewey, Sosa, CT, ASCP ? Pathologist: ? Lorena Jackson MD ? Specimen: ?Pap Test, ThinPrep, Cervix ? 04/19/2025 11:[address] [facility] LABSpecimen Adequacy Satisfactory for interpretation. No endocervical sdynfhivm81/26/2025 11:[address] [facility] General CategorizationEpithelial Cell Odcqjrkvsgn46/26/2025 11:52 AM EDT [facility] LABInterpretationAtypical squamous cells of undetermined significance (ASC-US).(A)04/19/2025 11:[address] [facility] at 1152 EDTOther Interpretation(s)Fungal organisms morphologically consistent with Rico species.04/19/2025 11:[address] [facility] LABClinical HistoryRoutine Exam04/19/2025 11:[address] [facility] LABLMP 11:[address] LABPap DisclaimerThe Pap Smear is a screening test for cervical cancer. False negative results occur with all screening tests, emphasizing the need for rescreening at recommended intervals, and clinical correlation.04/19/2025 11:[address] [facility] LABPAP Manager Chinese CommentThis specimen has been analyzed by the FDA-approved [employer]oft System, which usesdigital imaging and an enhanced artificial intelligence image analysis algorithm to identify fieldsof interest on the microscopic slide, to assist the claims representative and pathologist in evaluating cells on ThinPrep Pap tests. Following analysis, sehikh of interest on the microscopic slide selected by the algorithm are reviewed by a claims representative. If a sample requires hierarchical review, the pathologistwill review the same sheikh of interest selected by the algorithm prior to final interpretation.04/19/2025 11:[address] LABPerforming LabTechnical component, oleomargarine maker screening performed at: [facility], [address] [place] [address] CLIA: [id number] Diagnostic interpretation performed at: [facility], [address] [place] [address] CLIA# [id number] Zipper Cutter: Stephen Sharif MD04/19/2025 11:[address] LABSpecimen (Source)Anatomical Location / LateralityCollection Method / VolumeCollection TimeReceived TimeSterile Fluid/Body FluidCERVICAL / UnknownNon Blood / Qogwfwf8304/13/2025 10:36 AM EDT04/14/2025 6:01 AM EDT Narrative Authorizing ProviderResult TypeResult StatusSharowes Douglas MDCYTOLOGYFinal ResultPerforming OrganizationAddressCity/State/ZIP CodePhone Number [facility] [address] [place] [address], * (ABNORMAL) RICO/TRICHOMONAS NAAT (04/13/2025 10:36 AM EDT)ComponentValueRef RangeTest MethodAnalysis TimePerformed AtPathologist SignatureCandida species group RNADetected(A)Not detected [facility] 04/14/20[facility] 6:[address] [facility] LABComment:The Rico species group target includes C. albicans, C. tropicalis, C. parapsilosis, and C. dubliniensis.Rico glabrata RNANot detectedNot detected PANTHER SYSTEM H[facility]IC 04/14/2025 6:[address] [facility] LABTrichomonas vaginalis RNA Not detectedNot detected [facility] 04/14/2025 6:[address] LABSpecimen (Source) Anatomical Location / LateralityCollection Method / VolumeCollection Time Received TimeSwabVAGINAL STRUCTURE / UnknownNon Blood / Mqidxtt4904/13/2025 10:36 AM EDT04/13/2025 11:35 PM EDT Narrative Authorizing ProviderResult TypeResult StatusSharowes Dorys Stella [facility] HOSPITALICROBIOLOGYFinal ResultPerforming OrganizationAddressCity/State/ZIP CodePhone Number [facility] [address] [place] [address], * BACTERIAL VAGINOSIS NAAT (04/13/2025 10:36 AM EDT)ComponentValueRef RangeTest MethodAnalysis TimePerformed AtPathologist SignatureBacterial vaginosisNot detectedNot detected PANTHER SYSTEM HOLOGIC 04/14/2025 3:56 AM EDTCGLENBEIGH HOSPITAL LABSpecimen (Source) Anatomical Location / LateralityCollection Method / VolumeCollection Time Received TimeSwabVAGINAL STRUCTURE / UnknownNon Blood / Kmfqwkp3604/13/2025 10:36 AM EDT04/13/2025 11:35 PM EDT Narrative Authorizing ProviderResult TypeResult StatusSharowes JOLLEYROBIOLOGYFinal ResultPerforming OrganizationAddressCity/State/ZIP CodePhone Number [facility] [address] [place] [address], * HIGH RISK HUMAN PAPILLOMA VIRUS (HPV), PCR FOR DETECTION AND GENOTYPING (04/13/2025 10:36 AM EDT)ComponentValueRef RangeTest MethodAnalysis Time Performed AtPathologist SignatureHigh Risk HPV Type 16 DNANot detectedNot lgntdukj69/27/2025 8:[address] [facility] LABHigh Risk HPV Type 18 DNANot detectedNot wswopxfv97/27/2025 8:[address] [facility] LABHigh Risk HPV Other Type DNANot detectedNot nbuvagpj12/27/2025 8:[address] [facility] LABComment:High Risk HPV Other Type includes HPV types 31, 33, 35, 39, 45, 51, 52, 56, 58, 59, 66 and 68.Specimen (Source)Anatomical Location / LateralityCollection Method / VolumeCollection TimeReceived TimeSterile Fluid/Body FluidCERVICAL / UnknownNon Blood / Unknown 04/13/2025 10:36 AM EDT04/19/2025 11:52 AM EDT Narrative [facility] - 04/20/2025 8:02 PM EDT This test was developed and its performance characteristics determined by [facility] [place] ([facility]). It has not been cleared or approved by the FDA. -[facility] is regulated under CLIA as qualified to perform high-complexity testing. This test is used for clinical purposes. It should not be regarded as investigational or for research. Authorizing ProviderResult TypeResult StatusSharowes Douglas MDLABORATORYFinal ResultPerforming OrganizationAddressCity/State/ZIP CodePhone Number [facility] [address] [place] [address], [place] * GONORRHEA/CHLAMYDIA NAAT (04/13/2025 10:36 AM EDT)ComponentValueRef RangeTest MethodAnalysis TimePerformed AtPathologist SignatureNeisseria gonorrhoeae RNA Not detectedNot detected [facility] 04/14/2025 7:23 AM EDTCGL[facility]BEIGH [facility] LABChlamydia trachomatis RNA Not detectedNot detected [facility] 04/14/2025 7:23 AM EDTCGLENBEIGH HOSPITAL LABSpecimen (Source) Anatomical Location / LateralityCollection Method / VolumeCollection Time Received TimeSwabVAGINAL STRUCTURE / UnknownNon Blood / Cqqhgzu9904/13/2025 10:36 AM EDT04/13/2025 11:35 PM EDT Narrative [facility] - 04/14/2025 7:23 AM EDT This FDA-approved assay has been modified to accept rectal swabs self-collected in a healthcare setting. For self-collected rectal swabs, the test was developed and its performance characteristics determined by the [facility] Laboratory [facility] [place] ([facility] It has not been cleared or approved by the FDA. -[facility] is regulated under CLIA as qualified to perform high-complexity testing. This test is used for clinical purposes. It should not be regarded as investigational or for research. Authorizing ProviderResult TypeResult StatusFaye Douglas [facility] HOSPITALICROBIOLOGYFinal ResultPerforming OrganizationAddressCity/State/ZIP CodePhone Number [facility] [address] [place] [address], [place] * (ABNORMAL) PROTEIN / CREATININE RATIO (04/08/2025 2:52 PM EDT)ComponentValue Ref RangeTest MethodAnalysis TimePerformed AtPathologist SignatureProtein, Urine Ajjjse24(H)0 - 20 mg/dL04/09/2025 2:[address] [facility] LABCreatinine, Ur Random (UCRR)128.920.0 - 300.0 mg/dL04/09/2025 2:[address] [facility] LABProtein/Creat Ratio0.26(H)<0.15 mg/mg 04/09/2025 2:[address] [facility] LABComment: Adult Proteinuria Categories: <0.15 mg/mg is considered normal to mildly increased 0.15 - 0.50 mg/mg is considered moderately increased >0.50 mg/mg is considered severely increased KDIGO. (2013). KDIGO 2012 Clinical Practice Guideline for the Evaluation and Management of Chronic Kidney Disease. Official Journal of the International Society of Nephrology, 3(1), 1-150. Specimen (Source)Anatomical Location / LateralityCollection Method / Volume Collection TimeReceived TimeUrineURINE SPECIMEN / UnknownNon Blood / Unknown 04/08/2025 2:52 PM EDT04/08/2025 2:52 PM EDT Narrative Authorizing ProviderResult TypeResult StatusEmily Simba Lanza DOLABORATORYFinal ResultPerforming OrganizationAddressCity/State/ZIP CodePhone Number [facility] [address] [facility] [address] [place] [phone], * (ABNORMAL) URINALYSIS, WITH MICROSCOPIC (04/08/2025 2:52 PM EDT)ComponentValue Ref RangeTest MethodAnalysis TimePerformed AtPathologist SignatureColorYellow Fxszyf9604/08/2025 10:12 PM [facility] LABClarityClearClear 04/08/2025 10:12 PM [facility] LABGlucose, Urine1+(A) Vjskaosx49/15/2025 10:12 PM ED[facility] LABBilirubin, VcuxtRhxkyietYvyyptiw74/15/2025 10:12 PM [facility] LAB Ketones, UrineTrace(A)Fbotwsix87/15/2025 10:12 PM EDMEM[facility] LABSpecific Marblemount, Ur1.040(H)1.005 - 1.8954004/08/2025 10:12 PM EDT [facility] LABHemoglobin/Blood,DuLmrfuvldEzzgkajc81/15/2025 10:12 PM EDMEM[facility] LABpH, Urine6.05.0 - 8.008 10:12 PM EDMEM[facility] LABProtein, Urine1+(A)Negative 04/08/2025 10:12 PM EDMEM[facility] LABUrobilinogen0.2 EU/dL 0.2-1.0 EU/dL04/08/2025 10:12 PM EDMEM[facility] LABNitrites FdrikzdeCvzbboav39/15/2025 10:12 PM EDMEM[facility] LABLeuk VnyyecmiExmpwvboEvwgrjvj30/15/2025 10:12 PM EDMEM[facility] LABWBC, Urine0-5 /HPF0-5 /HPF04/08/2025 10:12 PM EDMEM[facility] LABRBC, Urine0-2 /HPF0-2 /HPF04/08/2025 10:12 PM EDMEM[facility] LABBacteriaNegativeNegative /HPF04/08/2025 10:12 PM EDMEM[facility] LABSquamous Epithelial CellsNone Seen/HPF04/08/2025 10:[address] [facility] LABCasts, Hyaline0 /LPF0 /LPF04/08/2025 10:[address] [facility] LABSpecimen (Source)Anatomical Location / LateralityCollection Method / VolumeCollection TimeReceived Time UrineURINE SPECIMEN / UnknownNon Blood / Ylcybtf3704/08/2025 2:52 PM EDT 04/08/2025 2:52 PM EDT Narrative [facility] - 04/08/2025 10:12 PM EDT This test was developed and its performance characteristics determined by [facility] Pathology and Laboratory Medicine [place] ([facility]). It has not been cleared or approved by the FDA. [facility] is regulated under CLIA as qualified to perform high-complexity testing. This test is used for clinical purposes. It should not be regarded as investigational or for research. Authorizing ProviderResult TypeResult StatusEmily A Pool DOLABORATORYFinal ResultPerforming OrganizationAddressCity/State/ZIP CodePhone Number [facility] [address] [facility] [address] [address], [place] * SEDIMENTATION RATE, WESTERGREN (04/08/2025 2:51 PM EDT)ComponentValueRef Range Test MethodAnalysis TimePerformed AtPathologist SignatureSed Rate, Westergren2 0 - 20 mm/hr04/09/2025 1:10 AM EDTCGLENBEIGH HOSPITAL LABSpecimen (Source)Anatomical Location / LateralityCollection Method / VolumeCollection TimeReceived TimeBloodBLOOD SPECIMEN / UnknownVenipuncture / Dwccvng7604/08/2025 2:51 PM EDT04/08/2025 2:51 PM EDT Narrative Authorizing ProviderResult TypeResult StatusEmily A Pool DOLABORATORYFinal ResultPerforming OrganizationAddressCity/State/ZIP CodePhone Number [facility] [address] [address], [place] * DNA ANTIBODY DS BLD (04/08/2025 2:51 PM EDT)ComponentValueRef RangeTest Method Analysis TimePerformed AtPathologist SignatureDNA Encrvhaa10<=200 IU/mL 04/12/2025 1:45 PM EDTCGLENBEIGH HOSPITAL LABComment: Negative: <200 IU/mL Equivocal: 201-300 IU/mL Moderate Positive: 301-800 IU/mL Strong Positive: >801 IU/mL DNA Antibody Qualitative JfdrtysvboaxrnXjtvcjznKwxbezwg66/19/2025 1:45 PM EDT [facility] LABSpecimen (Source)Anatomical Location / LateralityCollection Method / VolumeCollection TimeReceived TimeBloodBLOOD SPECIMEN / UnknownVenipuncture / Ubivtun7104/08/2025 2:51 PM EDT04/08/2025 2:51 PM EDT Narrative [facility] - 04/12/2025 1:45 PM EDT This test is used as an aid in diagnosis of systemic lupus erythematous in patients with positive anti-nuclear antibody (AMELIA) test result. It may also be used for prognostication and monitoring response to treatment where clinically warranted. Results were obtained with the QUANTA Lite dsDNA ROXANNE. Double-stranded DNA values obtained with different manufacturers' assay methods should not be used interchangeably. Authorizing ProviderResult TypeResult StatusEmily A Pool DOLABORATORYFinal ResultPerforming OrganizationAddressCity/State/ZIP CodePhone Number [facility] [address] [address], [place] * C4 COMPLEMENT (04/08/2025 2:51 PM EDT)ComponentValueRef RangeTest Method Analysis TimePerformed AtPathologist SignatureC4 Scybqdygon7522 - 46 mg/dL 04/09/2025 12:59 AM EDTCGLENBEIGH HOSPITAL LABSpecimen (Source) Anatomical Location / LateralityCollection Method / VolumeCollection Time Received TimeBloodBLOOD SPECIMEN / UnknownVenipuncture / Ynctufx4204/08/2025 2:51 PM EDT04/08/2025 2:51 PM EDT Narrative Authorizing ProviderResult TypeResult StatusEmily A Pool DOLABORATORYFinal ResultPerforming OrganizationAddressty/State/ZIP CodePhone Number [facility] [address] [place] [address], [place] * (ABNORMAL) C3 COMPLEMENT (04/08/2025 2:51 PM EDT)ComponentValueRef RangeTest MethodAnalysis TimePerformed AtPathologist SignatureC3 Gxvoxwtlwx347(H)86 - 166 mg/dL04/09/2025 12:59 AM EDTCGLENBEIGH HOSPITAL LABSpecimen (Source)Anatomical Location / LateralityCollection Method / VolumeCollection TimeReceived TimeBloodBLOOD SPECIMEN / UnknownVenipuncture / Knipbyn4804/08/2025 2:51 PM EDT04/08/2025 2:51 PM EDT Narrative Authorizing ProviderResult TypeResult StatusEmily A Pool DOLABORATORYFinal ResultPerforming OrganizationAddressty/State/ZIP CodePhone Number [facility] [address] [place] [phone], [place] * HIGH SENSITIVITY TROPONIN T (04/07/2025 1:22 AM EDT)ComponentValueRef Range Test MethodAnalysis TimePerformed AtPathologist SignatureTNT High Sensitivity6 <12 ng/L04/07/2025 1:45 AM EDTLUTHERAN LABORATORYSpecimen (Source)Anatomical Location / LateralityCollection Method / VolumeCollection TimeReceived Time BloodBLOOD SPECIMEN / UnknownVenipuncture / Impltfp2704/07/2025 1:22 AM EDT 04/07/2025 1:25 AM EDT Narrative Authorizing ProviderResult TypeResult StatusIbrnanyc [place] MDLABORATORYFinal ResultPerforming OrganizationAddressCity/State/ZIP CodePhone Number [facility] [address] [place] [address], * EKG (04/07/2025 1:20 AM EDT)ComponentValueRef RangeTest MethodAnalysis Time Performed AtPathologist SignatureVentricular Vutn80EWRCVQYESNN CARDIOLOGY Atrial Ptgg88GVSPWTZDCGJ CARDIOLOGYP-R Wfirtnxz267avTYQQZBFB CARDIOLOGYQRS Fwwqbzha80itNUFIDVGM CARDIOLOGYQT Hznhkbiq654bvPDYZMRTR CARDIOLOGYQTC Calculation (Bazett)435msLUTHERAN CARDIOLOGYCalculated P Jtbu86kcvjqnuLFGPMLKM CARDIOLOGYCalculated R Bdct46ptykrklJLJOKEZE CARDIOLOGYCalculated T Axis33 degreesLUTHERAN CARDIOLOGYSpecimen (Source)Anatomical Location / Laterality Collection Method / VolumeCollection TimeReceived Time04/07/2025 1:20 AM EDT Impressions [facility] - 04/07/2025 1:34 AM EDT Sinus rhythm Normal ECG No Stemi Confirmed by MD SMALLWOOD IBRAHIM ([id number]) on 04/07/2025 1:34:36 AM Narrative [facility] - 04/07/2025 1:34 AM EDT NAME : REBEKAH THOMPSON PID : [id number] : 2000 Gender : Female Race : ORD : Procedure Date : Apr 07 2025 01:20:51 Edit Date : Apr 07 2025 01:34:37 Diagnosis: Sinus rhythm Normal ECG No Stemi Confirmed by MD SMALLWOOD IBRAHIM ([id number]) on 04/07/2025 1:34:36 AM Test Reason : Location : 502 : LUED ??otilio-ed-12 Overread By : MD SELIN,JALEEL Edited By : MD SMALLWOOD IBRAHIM Referred By : , Acquired by : , Authorizing ProviderResult TypeResult StatusCcf ProviderCARDIOLOGY_MEFinal ResultPerforming OrganizationAddressCity/State/ZIP CodePhone Number [facility] * US DVT LOWER RIGHT (04/06/2025 8:16 PM EDT)Anatomical RegionLateralityModality LegUltrasoundSpecimen (Source)Anatomical Location / LateralityCollection Method / VolumeCollection TimeReceived Time04/06/2025 8:16 PM EDT Impressions 04/06/2025 8:48 PM EDT IMPRESSION: Negative study for proximal DVT in the right lower extremity. Negative study for calf DVT in the right lower extremity. Negative study for superficial thrombophlebitis in the imaged segments of the right lower extremity. Nursing Executive: JACINDA ?? Transcribe Date/Time: Apr 06 2025 ??8:18P Dictated by : MANAN KYLE MD This examination was interpreted and the report reviewed and electronically signed by: CASS METCALF MD on Apr 06 2025 ??8:46PM ??EST Narrative 04/06/2025 8:48 PM EDT * * *Final Report* * * DATE OF EXAM: Apr 06 2025 ??8:16PM ?? MEU ?? 1007 ??- ??US DVT LOWER RT ??/ PROCEDURE REASON: Leg deep vein thrombosis (DVT), new symptoms ? * * * * Physician Interpretation * * * * EXAMINATION: ??RIGHT LOWER EXTREMITY DEEP VENOUS ULTRASOUND WITH DOPPLER IMAGING CLINICAL HISTORY: Leg pain or tenderness. TECHNIQUE: ??Grayscale with compression maneuvers, color Doppler and spectral Doppler imaging of the right proximal deep veins was performed. ?? Grayscale with compression maneuvers of the peroneal and posterior tibial veins was performed. The right great and small saphenous veins were evaluated at their insertion to the deep system. ??The contralateral common femoral vein was imaged for comparison. Images were obtained and stored in a permanent archive. MQ: ?? USLER_1 COMPARISON: None RESULT: RIGHT LOWER EXTREMITY PROXIMAL DEEP VEINS Distal External Iliac, Common Femoral and proximal Profunda Veins: ? Compression: Normal ? Doppler: Normal, spontaneous respirophasic flow. ? Normal response to augmentation. Femoral vein: ? Compression: Normal ? Doppler: Normal, spontaneous flow. ? Normal response to augmentation. Popliteal vein: ? Compression: Normal ? Doppler: Normal, spontaneous flow. ? Normal response to augmentation. CALF DEEP VEINS Peroneal veins: Normal compression. Posterior tibial veins: Normal compression. Gastrocnemius and Soleal veins: Not imaged. SUPERFICIAL VEINS Great saphenous: Patent and compressible at insertion into common femoral vein; not otherwise assessed. Small Saphenous: Patent and compressible in the proximal calf, not otherwise assessed. LEFT LOWER EXTREMITY (FOR COMPARISON) Common Femoral Vein: ? Compression: Normal ? Doppler: Normal, spontaneous respirophasic flow. ? Normal response to augmentation. Procedure Note Provider, [facility] [place] - 04/06/2025 * * *Final Report* * * DATE OF EXAM: Apr 06 2025 8:16PM [facility] 1007 - US DVT LOWER RT / PROCEDURE REASON: Leg deep vein thrombosis (DVT), new symptoms * * * * Physician Interpretation * * * * EXAMINATION: RIGHT LOWER EXTREMITY DEEP VENOUS ULTRASOUND WITH DOPPLER IMAGING CLINICAL HISTORY: Leg pain or tenderness. TECHNIQUE: Grayscale with compression maneuvers, color Doppler and spectral Doppler imaging of the right proximal deep veins was performed. Grayscale with compression maneuvers of the peroneal and posterior tibial veins was performed. The right great and small saphenous veins were evaluated at their insertion to the deep system. The contralateral common femoral vein was imaged for comparison. Images were obtained and stored in a permanent archive. MQ: USLER_1 COMPARISON: None RESULT: RIGHT LOWER EXTREMITY PROXIMAL DEEP VEINS Distal External Iliac, Common Femoral and proximal Profunda Veins: Compression: Normal Doppler: Normal, spontaneous respirophasic flow. Normal response to augmentation. Femoral vein: Compression: Normal Doppler: Normal, spontaneous flow. Normal response to augmentation. Popliteal vein: Compression: Normal Doppler: Normal, spontaneous flow. Normal response to augmentation. CALF DEEP VEINS Peroneal veins: Normal compression. Posterior tibial veins: Normal compression. Gastrocnemius and Soleal veins: Not imaged. SUPERFICIAL VEINS Great saphenous: Patent and compressible at insertion into common femoral vein; not otherwise assessed. Small Saphenous: Patent and compressible in the proximal calf, not otherwise assessed. LEFT LOWER EXTREMITY (FOR COMPARISON) Common Femoral Vein: Compression: Normal Doppler: Normal, spontaneous respirophasic flow. Normal response to augmentation. IMPRESSION IMPRESSION: Negative study for proximal DVT in the right lower extremity. Negative study for calf DVT in the right lower extremity. Negative study for superficial thrombophlebitis in the imaged segments of the right lower extremity. Nursing Executive: JCAINDA Transcribe Date/Time: Apr 06 2025 8:18P Dictated by : MANAN KYLE MD This examination was interpreted and the report reviewed and electronically signed by: CASS METCALF MD on Apr 06 2025 8:46PM EST Authorizing ProviderResult TypeResult StatusTravis Lesia Cuellar MDUS-PAMAFinal Result * XR CHEST 2V FRONTAL/LAT (04/06/2025 6:18 PM EDT)Anatomical RegionLaterality ModalityChestRadiographic ImagingSpecimen (Source)Anatomical Location / LateralityCollection Method / VolumeCollection TimeReceived Time04/06/2025 6:15 PM EDT Impressions 04/06/2025 6:37 PM EDT IMPRESSION: No acute radiographic abnormality. Nursing Executive: JACINDA ?? Transcribe Date/Time: Apr 06 2025 ??6:34P Dictated by : IGNACIO GARCIA MD This examination was interpreted and the report reviewed and electronically signed by: IGNACIO GARCIA MD on Apr 06 2025 ??6:35PM ??EST Narrative 04/06/2025 6:37 PM EDT * * *Final Report* * * DATE OF EXAM: Apr 06 2025 ??6:15PM ?? EGX ?? 5291 ??- ??XR CHEST 2V FRONTAL/LAT ??/ PROCEDURE REASON: Chest Pain ? * * * * Physician Interpretation * * * * EXAMINATION: CHEST RADIOGRAPH (2 VIEW FRONTAL & LATERAL) CLINICAL HISTORY: ??Chest Pain MQ: ??XC2_6 EXAM DATE/TIME: ??04/06/2025 6:15 PM COMPARISON: ??03/27/2021 RESULT: Lines, tubes, and devices: ??None. Lungs and pleura: ??Low lung volumes. ??No consolidation or edema. ??No effusion or pneumothorax. Cardiomediastinal silhouette: ??Stable, normal Bones and soft tissues: ??Status post interval T7-8 posterior fusion with pedicle screw and arleth fixation and suspected posterior decompression. Procedure Note Provider, [facility] [place] - 04/06/2025 * * *Final Report* * * DATE OF EXAM: Apr 06 2025 6:15PM EGX 5291 - XR CHEST 2V FRONTAL/LAT / PROCEDURE REASON: Chest Pain * * * * Physician Interpretation * * * * EXAMINATION: CHEST RADIOGRAPH (2 VIEW FRONTAL & LATERAL) CLINICAL HISTORY: Chest Pain MQ: XC2_6 EXAM DATE/TIME: 04/06/2025 6:15 PM COMPARISON: 03/27/2021 RESULT: Lines, tubes, and devices: None. Lungs and pleura: Low lung volumes. No consolidation or edema. No effusion or pneumothorax. Cardiomediastinal silhouette: Stable, normal Bones and soft tissues: Status post interval T7-8 posterior fusion with pedicle screw and arleth fixation and suspected posterior decompression. IMPRESSION IMPRESSION: No acute radiographic abnormality. Nursing Executive: PSCB Transcribe Date/Time: Apr 06 2025 6:34P Dictated by : IGNACIO GARCIA MD This examination was interpreted and the report reviewed and electronically signed by: IGNACIO GARCIA MD on Apr 06 2025 6:35PM EST Authorizing ProviderResult TypeResult StatusTravis Lesia Cuellar MDRAD-PAMAFinal Result * ECG COMPLETE (04/06/2025 6:06 PM EDT)ComponentValueRef RangeTest Method Analysis TimePerformed AtPathologist SignatureVentricular Jlxf305ZMJAWIAT AND VASCULAR INSTITUTEAtrial Dnvz073CMMPIUAI AND VASCULAR INSTITUTEP-R Jrdvfagq084 msHEART AND VASCULAR INSTITUTEQRS Onhynvkl76yvQRFHM AND VASCULAR INSTITUTEQT Lrsouuug346jqFTYET AND VASCULAR INSTITUTEQTC Calculation (Ajit)446msHEART AND VASCULAR INSTITUTECalculated P Waxy44copruujWPFED AND VASCULAR INSTITUTE Calculated R Vtgd07znxebxbCJTLR AND VASCULAR INSTITUTECalculated T Axis33 degreesHEART AND VASCULAR INSTITUTESpecimen (Source)Anatomical Location / LateralityCollection Method / VolumeCollection TimeReceived Time04/06/2025 6:06 PM EDT Impressions [facility] - 04/09/2025 8:58 AM EDT SINUS TACHYCARDIA NONSPECIFIC ST ABNORMALITY ABNORMAL ECG 1814 Confirmed by ASHLEY CUELLAR M.D. ([place]), newspaper editor managing NATE BERNSTEIN ([id number]) on 04/09/2025 8:58:11 AM Narrative [facility] - 04/09/2025 8:58 AM EDT NAME : REBEKAH THOMPSON PID : [id number] : 2000 Gender : Female Race : ORD : Procedure Date : Apr 06 2025 18:06:31 Edit Date : Apr 09 2025 08:58:12 Diagnosis: SINUS TACHYCARDIA NONSPECIFIC ST ABNORMALITY ABNORMAL ECG 1813 Confirmed by ASHLEY CUELLAR M.D. ([id number]), newspaper editor managing NATE BERNSTEIN ([id number]) on 04/09/2025 8:58:11 AM Test Reason : Location : 2 : EDNS ?? Overread By : ASHLEY CUELLAR M.D. Edited By : NATE BERNSTENI Referred By : , Acquired by : JALEESA, Authorizing ProviderResult TypeResult StatusCcf ProviderEKGFinal Result Performing OrganizationAddressCity/State/ZIP CodePhone Number [facility] [address] [place] [phone] * HEPATITIS C ANTIBODY IA WITH CONFIRMATION (01/10/2025 8:41 AM EDT)Component ValueRef RangeTest MethodAnalysis TimePerformed AtPathologist SignatureHep C Antibody AGNciecknpMkxbaquu14/19/2025 1:18 PM EDTCGLENBEIGH HOSPITAL LABComment:The result suggests no evidence of infection with Hepatitis C virus. Should recent infection be suspected, repeat testing may be considered 4-6 weeks after this draw.Specimen (Source)Anatomical Location / Laterality Collection Method / VolumeCollection TimeReceived TimeBloodBLOOD SPECIMEN / UnknownVenipuncture / Obcjddp9901/10/2025 8:41 AM EDT01/10/2025 8:41 AM EDT Narrative Authorizing ProviderResult TypeResult StatusEmradha Simba Pool DOLABORATORYFinal ResultPerforming OrganizationAddressCity/State/ZIP CodePhone Number [facility] [address] [facility] [address] [place] [address], [place] from Last 3 Months or Most Recently Relevant to Health Maintenance Insurance Advance Directives * Full Code (Latest Code Status on File) Date ActivatedDate OkfzoexugdjXrzdufbm31/12/2025 1:27 AM06/10/2025 5:16 PM QuestionAnswerCommentsFull Code Order Discussed With:* Patient * Full Code Date ActivatedDate InactivatedComments04/05/2021 1:35 PM04/06/2025 5:52 PM * Full Code Date ActivatedDate InactivatedComments03/26/2021 5:46 AM04/02/2021 5:59 PMQuestion AnswerCommentsFull Code Order Discussed With:* Patient Care Teams Team MemberRelationshipSpecialtyStart DateEnd Date Aure Ulloa DO [address] [facility] [address] [place] [address] 06/08/15 William Lama MD [address] [place] [address] [facility] Care [facility]SAt[facility]03/30/21 William Lama MD [address] [place] [address] [facility]03/30/21 Karen Sotomayor (Pt), PT [address] [place] [address] Home Care ManagerPost Acute [facility]04/02/21
--- OUTSIDE RECORDS SUMMARY | 2025-07-06 11:00 | XMS_ITS | Encounter Summary ---
Author Organization [facility] Address [facility] [place] [address] Care Team Providers Care Medical Receptionist Medical Assistant Name Role Phone Laila Aure Scott DO Unavailable [phone] William Lama MD Unavailable [phone] William Lama MD Unavailable [phone] Karen Sotomayor (Pt) PT Unavailable Unavailabl e Source Comments In the event this information is protected by the Federal Confidentiality of Alcohol and Drug AbusePatient Records regulations: The Federal rules restrict any use of the information to criminally investigate or prosecute any alcohol or drug abuse patient.[facility] Encounter Details DateTypeDepartmentCare Team (Latest Contact Info)Ijbbstktcan42/05/2025Travel Social History Tobacco UseTypesPacks/DayYears UsedDateSmoking Tobacco: NeverSmokeless Tobacco: NeverAlcohol UseStandard Drinks/WeekCommentsNo0 (1 standard drink = 0.6 oz pure alcohol)PHQ-2AnswerDate RecordedPHQ-2 nzzze335UDIT-CAnswerDate Recorded Q1: How often do you have [...] were you homeless or living in a skilled nursing (including now)?No 06/08/2025HC UtilitiesAnswerDate RecordedIn the past 12 months has the electric, gas, oil, or water [employer] threatened to shut off services in your home?No06/08/2025rea Deprivation IndexAnswerDate RecordedNational Score (1- 100), lower number is lower meaz358106/18/2024State Score (1-10), lower number is lower xlen8434Data from: https://www.neighborhoodatlas.medicine.[facility].edu/. Last address used for [address]14CommentsNoSex and Gender InformationValueDate RecordedSex Assigned at BirthNot on fileLegal SexFemale 07/26/2012 9:51 AM ESTGender ZggenoupWxxunr62/19/2021 9:24 PM EDTSexual NzikefxdukgYwuzikvq82/15/2024 10:47 AM ESTdocumented as of this encounter Functional Status * Are you deaf or do you have serious difficulty hearing?AnswerDate of EgopnfxhagRccclkZz92/17/2025 1:59 PM Paramjit Lai RN * Are you blind or do you have serious difficulty seeing, even when wearing glasses?AnswerDate of MjrmqbxtwbZqzssnYr00/17/2025 1:59 PM Paramjit Lai RN * Do you have serious difficulty walking or climbing stairs?AnswerDate of CiiqtihvwvEnvdhwGm41/17/2025 1:59 PM Paramjit Lai RN * Do you have difficulty dressing or bathing?AnswerDate of AssessmentAuthorNo 06/10/2025 1:59 PM Paramjit Lai RN * Because of a physical, mental, or emotional condition, do you have difficulty doing errands alone such as visiting a doctor's office or shopping?AnswerDate of UjuzookahzKkpnawBo92/17/2025 1:59 PM Paramjit Lai RN documented as of this encounter Mental Status * Because of a physical, mental, or emotional condition, do you have serious difficulty concentrating, remembering, or making decisions?AnswerEntry Date KghfpfDz61/13/2025 1:33 PM Marylou Hart RN documented in this encounter Plan of Treatment DateTypeDepartmentCare Team (Latest Contact Info)Zvulybkmivy75/19/2025 11:00 AM ESTOffice Visit Rheumatology [address] [address] Mirta Lanza, DO [address] [facility], [address] [place] [address] 6m f/u sle07/18/2025 11:00 AM ESTInfusion Center Rheumatology [address] [address] [place] [M32.9] [employer] Medicare auth approved thru 08/24/25, Dr. Lanza, Q28D109/27/2024 1:00 PM EST[facility] [address] [place] [address] Gagandeep Craig, [facility] [address] [place] [address] T2DM08/10/2025 9:15 AM ESTOffice Visit Family Medicine [facility] [address] [place] [address] [place] [address] [place] [address] EST care ER follow up eepylvlmsw67/22/2025 11:00 AM ESTInfusion Center Rheumatology [address] [address] [place] [M32.9] [employer] Medicare auth approved thru 08/24/25, Dr. Lanza, Q28D09/30/2025 10:00 AM ESTOffice Visit Endocrinology 9300 [place] [address] Steve Cerna, LOSS CONTROL REPRESENTATIVE.MARKETING SERVICES COORDINATOR [address] [place], [place] [id number] 4 month follow up10/07/2025 7:45 AM ESTOffice Visit Urology [address] [place] [address] Mirta Harris MD [address] [place], [place] [id number] ER discharge due to UTI and Kidney Stone.06/15/2026 1:00 PM EDTOffice Visit OPHT Ophthalmology 5[address] [place] [address] Omero Brady, OD [address] [place] [address] Annual Plaquenil Eye Examdocumented as of this encounter Visit Diagnoses Not on filedocumented in this encounter Care Teams Team MemberRelationshipSpecialtyStart DateEnd Date Aure Ulloa DO [address] [facility] [address] [place] [address] 06/08/15 William Lama MD [address] [place], [place] [id number] Home Care ProviderSOn license of [facility]03/30/21 William Lama MD [address] [place] [address] ReferringSpine [facility]03/30/21 Karen Sotomayor (Pt), PT [address] [place] [address] Home Care ManagerPost Acute Care04/02/21documented as of this encounter
--- OUTSIDE RECORDS SUMMARY | 2025-07-06 11:00 | XMS_ITS | Clinical Summary ---
Author Organization [facility] Address [address] [place] [address] Phone Care Team Providers Care Health Specialist Name Role Phone Alex Rosen DO Primary Care Provider [phone] Social History Tobacco UseTypesPacks/DayYears UsedDateSmoking Tobacco: Never Assessed CommentsUnknownSex and Gender InformationValueDate RecordedSex Assigned at Not on fileLegal EjfIhewko38/25/2022 12:10 PM ESTGender IdentityNot on file Sexual OrientationNot on file Last Filed Vital Signs Vital SignReadingTime TakenCommentsBlood Pressure--Flfny71832/03/2022 10:15 AM ICMQsqqcepjanm63.9 ??C (96.7 ??F)08/27/2021 10:15 AM ESTRespiratory Rate18 08/27/2021 10:15 AM ESTOxygen Abjwiwevgg95%08/27/2021 10:15 AM ESTInhaled Oxygen Concentration--Ezwvqe420 kg (259 lb 4 oz)08/27/2021 10:15 AM QBLPkgawb812.7 cm (5' 8 )08/27/2021 10:15 AM ESTBody Mass Index39.42008/27/2021 10:15 AM EST Plan of Treatment Health MaintenanceDue DateLast DoneCommentsHIV Nopmpmsgh1999Lipid Panel 1999Yearly Adult Cuhmvfkb1999Hepatitis B Vaccines (4 of 4 - 4-dose series), 1999, 1999DTaP/Tdap/Td Vaccines (5 - Tdap), 1999, 1999, Additional history existsHPV Vaccines (1 - Risk 3-dose series)2010Hepatitis C Mnvaqefkg74/13/2017 Hepatitis A Vaccines (1 of 2 - Risk 2-dose series)2018HPV/Zuapsc8405/07/2020 Influenza Vaccine (#1)509/07/2024, 10/03/2023, 2COVID-19 Vaccine ( - season)5Cervical Cancer Lnflkborn96/20/2028Pap Smear8004/13/2025Zoster Vaccines (1 of 2)2049HIB VaccinesAged Out 1999, 1999, 1999, Additional history existsNo longer eligible based on patient's age to complete this topicIPV CdfufklaYvigllmcw48/01/2005, 1999, 1999, Additional history existsMMR VaccinesCompleted 11/23/2004, 1999Meningococcal KwlpksuGxsaolfab34/10/2017Pneumococcal Vaccine: Pediatrics and At-Risk Adult PatientsAged OutNo longer eligible based on patient's age to complete this topicRotavirus VaccinesAged OutNo longer eligible based on patient's age to complete this topic Care Teams Team MemberRelationshipSpecialtyStart DateEnd Date Alex Rosen DO [address] [facility] [address] [place] [id number] [facility]03/09/21
--- OUTSIDE RECORDS SUMMARY | 2025-07-06 11:01 | XMS_ITS | Clinical Summary ---
Author Organization [facility] Address [address] [place] [address] Care Team Providers Care Political Director Name Role Phone Unavailable Primary Care Provider Unavailabl e Allergies Active AllergyReactionsCriticalityNoted KahgDmbfefmeMzmdlnijotiuoBtwe62/14/2021 Other reaction(s): Chest Pain Morphine And CodeineHives,WpnwqicGucz07/07/2022 Medications MedicationSigDispense QuantityRefillsLast FilledStart DateEnd DateStatus polyethylene glycol (MIRALAX) 17 g packet Take 17 g by mouth daily. 10 each 01/31/2022ctive melatonin tablet Take 2 tablets (6 mg total) by mouth nightly.ctive acetaminophen (TYLENOL) 500 MG tablet Take 2 tablets (1,000 mg total) by mouth every 8 (eight) hours.ctive Active Problems ProblemNoted DateDiagnosed DateMyelopathy due to spinal stenosis of lumbar evvsaf6801/22/2022History of lumbar lebmaquvdih40/27/2022Type 2 diabetes mellitus without uxvemvsfigcd49/14/2022ody mass index 30+ - eqppomh6806/07/2021 Overview (01/22/2022): May 2021: She continues with her successful discontinuation of prednisone. This will help with her weight management goals. Systemic lupus ohviunpbpirqh12/20/2020 Overview (01/22/2022): June 2020; she is having in crease lupus activity involving her joints, skin and alopecia. --There has been no inflammatory renal disease or bone marrow disease to date. Last Assessment & Plan: Assessment: ?diagnosis of SLE prior to admission PLAN: -Appreciate assistance from rheumatology -Holding imuran -Continue prednisone and hydroxychloroquine -Will f/u with Dr. Lanza post-discharge Immunizations ImmunizationAdministration DatesNext DuePfizer SARS-CoV-2 Ssgthrjopzm91/28/2021 Family History Medical HistoryRelationNameCommentsDementiaFatherDiabetesFatherHeart disease FatherArthritisMotherCancerMotherDiabetesMotherHeart diseaseMotherLiver disease MotherRelationNameStatusCommentsBrotherAliveFatherAliveMotherDeceasedSisterAlive Social History Tobacco UseTypesPacks/DayYears UsedDateSmoking Tobacco: NeverSmokeless Tobacco: NeverAlcohol UseStandard Drinks/WeekCommentsNever0 (1 standard drink = 0.6 oz pure alcohol)CommentsUnknownSex and Gender InformationValueDate Recorded Sex Assigned at BirthNot on fileLegal GvpZihgfs56/14/2022 11:04 AM ESTGender IdentityNot on fileSexual OrientationNot on file Last Filed Vital Signs Vital SignReadingTime TakenCommentsBlood Ebqhpqbl617/8606 6:27 AM EDT Fedyq758501/31/2022 6:27 AM IZOPicygejwdoi98.1 ??C (97 ??F)01/31/2022 6:27 AM EDT Respiratory Pnmp8501 6:27 AM EDTOxygen Tiwxlwwjrc94%01/31/2022 6:27 AM EDTInhaled Oxygen Concentration--Pcvaoo777.8 kg (246 lb 9 oz)01/30/2022 6:00 AM FQXExajdn731.7 cm (5' 8 )01/22/2022 5:09 PM EDTBody Mass Index37.49001/22/2022 5:09 PM EDT Plan of Treatment Health MaintenanceDue DateLast DoneCommentsHemoglobin A1C1999Annual Visit Topic2000MMR Vaccines (1 of 1 - Standard series)2000Ophthalmology Exam2009Urine Hqurmyncptfn22/13/2009Varicella Vaccines (1 of 2 - 13+ 2- dose series)2012HPV Vaccines (1 - 3-dose series)2014Hepatitis C Syineyckq91/13/2017DTaP/Tdap/Td Vaccines (1 - Tdap)2018Hepatitis B Vaccines (1 of 3 - 19+ 3-dose series)2018HIB VaccinesAged OutNo longer eligible based on patient's age to complete this topicHepatitis A VaccinesAged OutNo longer eligible based on patient's age to complete this topicIPV Vaccines Aged OutNo longer eligible based on patient's age to complete this topic Meningococcal VaccineAged OutNo longer eligible based on patient's age to complete this topicPneumococcal Vaccine: Pediatrics (0 to 5 years) and At-Risk Patients (6 to 64 Years)Aged OutNo longer eligible based on patient's age to complete this topic Advance Directives * Full Resuscitation (Latest Code Status on File) Date ActivatedDate InactivatedComments01/22/2022 7:22 PM01/31/2022 3:55 PM
--- OUTSIDE RECORDS SUMMARY | 2025-07-06 11:01 | XMS_ITS | Encounter Summary ---
Author Organization [facility] Address [address] [place] [address] Care Team Providers Care Applied Statistician Name Role Phone Laila Aure Scott DO Primary Care Provider [phone] Germaingeetha Aure Scott DO Unavailable [phone] William Lama MD Unavailable [phone] William Lama MD Unavailable [phone] Karen Sotomayor (Pt) PT Unavailable Unavailabl e Source Comments In the event this information is protected by the Federal Confidentiality of Alcohol and Drug AbusePatient Records regulations: The Federal rules restrict any use of the information to criminally investigate or prosecute any alcohol or drug abuse patient.[facility] Encounter Details DateTypeDepartmentCare Team (Latest Contact Info)Kdpyennzutb20/09/2025Results Follow-Up Endocrinology [address] [place] [address] Kasia Lam MD [address] [place] [address] Social History Tobacco UseTypesPacks/DayYears UsedDateSmoking Tobacco: NeverSmokeless Tobacco: NeverAlcohol UseStandard Drinks/WeekCommentsNo0 (1 standard drink = 0.6 oz pure alcohol)PHQ-2AnswerDate RecordedPHQ-2 cikmu531UDIT-CAnswerDate Recorded Q1: How often do you have [...] were you homeless or living in a alf (including now)?No 06/08/2025HC UtilitiesAnswerDate RecordedIn the past 12 months has the [employer], gas, oil, or water [employer] threatened to shut off services in your home?No06/08/2025rea Deprivation IndexAnswerDate RecordedNational Score (1- 100), lower number is lower rujv886006/18/2024State Score (1-10), lower number is lower oztj502ata from: https://www.neighborhoodatlas.medicine.[facility].edu/. Last address used for [address] [facility]1regnantCommentsNoSex and Gender InformationValueDate RecordedSex Assigned at BirthNot on fileLegal SexFemale 07/26/2012 9:51 AM ESTGender HsprndpdRcgfru03/19/2021 9:24 PM EDTSexual ReshxzbipedWzqyezgh22/15/2024 10:47 AM ESTdocumented as of this encounter Functional Status * AUDIT-C ScoreAnswerDate of DhzbukkjcyAafrpx444/20/2025 9:36 AM Nargis Stone COA * QuestionAnswerDate of AssessmentAuthorQ1: How often do you have a drink containing alcohol?Never06/13/2025 9:36 AM Nargis Stone COAQ2: How many drinks containing alcohol do you have on a typical day when you are drinking? Patient does not drink06/13/2025 9:36 AM Nargis Stone COAQ3: How often do you have six or more drinks on one occasion?Never06/13/2025 9:36 AM Nargis Stone COA * Are you deaf or do you have serious difficulty hearing?AnswerDate of FnstzizsgaTdfqwvPw55/09/2021 2:38 PM Leeann Gonsalez RN * Are you blind or do you have serious difficulty seeing, even when wearing glasses?AnswerDate of NlxozucxdbLyjrthNx14/09/2021 2:38 PM Leeann Gonsalez RN * Do you have serious difficulty walking or climbing stairs?AnswerDate of GyrckbaujhOhzuebWbq26/09/2021 2:38 PM Leeann Gonsalez RN * Do you have difficulty dressing or bathing?AnswerDate of AssessmentAuthorNo 04/02/2021 2:38 PM Leeann Gonsalez RN * Because of a physical, mental, or emotional condition, do you have difficulty doing errands alone such as visiting a doctor's office or shopping?AnswerDate of FrzyxmlneaHqrahrDha72/09/2021 2:38 PM Leeann Gonsalez RN documented as of this encounter Mental Status * Because of a physical, mental, or emotional condition, do you have serious difficulty concentrating, remembering, or making decisions?AnswerEntry Date UbonasBk81/09/2021 2:38 PM Leeann Gonsalez RN documented in this encounter Plan of Treatment DateTypeDepartmentCare Team (Latest Contact Info)Lizscxyrpmh20/19/2025 11:00 AM ESTOffice Visit Rheumatology [address] [address] Mirta Lanza DO [address] [facility], [address] [place], [place] [address] 6m f/u sle07/18/2025 11:00 AM ESTInfusion Center Rheumatology [address] [address] [place] [M32.9] [employer] Medicare auth approved thru 08/24/25, Dr. Lanza, Q2807/27/2025 1:00 PM ESTT[facility] Hospital[facility] [address] [place] [address] Gagandeep Craig, [facility] [address] [place] [address] T2DM08/10/2025 9:15 AM ESTOffice Visit Family Medicine [facility] [address] [place] [address] [place] [address] [place] [address] EST care ER follow up /22/2025 11:00 AM ESTInfusion Center Rheumatology [address] [address] [place] [M32.9] [employer] Medicare auth approved thru 08/24/25, Dr. Lanza, Q28D09/30/2025 10:00 AM ESTOffice Visit Endocrinology [address] [place] [address] Steve Cerna, DISTRICT ADVISER.DIRECTOR DRUG [address] [place] [address] 4 month follow up10/07/2025 7:45 AM ESTOffice Visit Urology [address] [place] [address] Mirta Harris MD [address] [place] [address] ER discharge due to UTI and Kidney Stone.06/15/2026 1:00 PM EDTOffice Visit OPHT Ophthalmology [address] [place] [address] Omero Brady, OD [address] [place] [address] Annual Plaquenil Eye Examdocumented as of this encounter Visit Diagnoses Not on filedocumented in this encounter Care Teams Team MemberRelationshipSpecialtyStart DateEnd Aure Ulloa DO [address] [facility] [address] [place] [address] PCP - Kgorxkg5206/08/1510/27/25 Aure Ulloa DO [address] [facility] [address] [place] [address] 06/08/15 William Lama MD [address] [place] [address] [facility] Care [facility]SAt[facility] Health [facility]03/30/21 William Lama MD [address] [place] [address] ReferringSpUNC [facility]03/30/21 Karen Sotomayor (Pt), PT [address] [place] [address] Home Care ManagerPost Acute Care04/02/21documented as of this encounter
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
== END 2025-07-06 10:55 | disposition home or self-care (01) ==
LOC: ER 10:56
PROVIDERS: Emergency Provider Student in an Organized Health Care Education/Training Program
DX: S39.012A Strain of muscle, fascia and tendon of lower back, initial encounter (principal); V44.5XXA Car driver injured in collision with heavy transport vehicle or bus in traffic accident, initial encounter; Y93.89 Activity, other specified; Y92.488 Other paved roadways as the place of occurrence of the external cause
CPT/HCPCS: 99281